=== PATIENT | female | born 1940 | race Caucasian/White ===

== ENCOUNTER 2017-07-28 12:10 | Observation (INO) | payer MEDICARE ==
[2017-07-28] MEDS ORDERED: ASPIRIN 81 MG PO STA (13:32)
[2017-07-28] MEDS ORDERED: NITROGLYCERIN OINT 1 INCH/GM PACKET TOPICAL STA (13:32)
[2017-07-28 13:35] LABS: Basophils % (A) 0 %; CH 29.5; CHCM 32.6; Eosinophils # (A) 0.3 k/uL (0-0.7); Eosinophils % (A) 4 %; HCT 42.2 % (34.0-46.0); HDW 2.41; HGB 13.3 gm/dL (11.4-16.0); Luc # (Auto) 0.16; Luc % (Auto) 2; Lymphocytes # (A) 1.1 k/uL (1.0-4.8); Lymphocytes % (A) 11 %; MCH 28.8 pg (25.0-35.0); MCHC 31.6 g/dL (31.0-37.0); MCV 91.1 fL (80.0-100.0); Mean Platelet Volume 7.7; Monocytes # (A) 0.4 k/uL (0-1.0); Monocytes % (A) 5 %; Neutrophils # (A) 7.4 k/uL (1.3-7.7); Neutrophils % (A) 79 %; RBC 4.63 m/uL (3.80-5.40); RDW 14.2 % (11.5-15.5); WBC 9.4 k/uL (3.8-10.6); WBC (Perox) 9.48
--- NOTE | 2017-07-28 13:36 | ED ---
General Adult HPI - General Chief complaint: Chest Pain Stated complaint: Heart Time Seen by Provider: 07/28/17 12:20 Source: patient, family, RN notes reviewed Mode of arrival: wheelchair Limitations: no limitations - History of Present Illness Initial comments: This is a 77-year-old female presents emergency room complaining of intermittent chest pain over the last 3 days home. Patient states she takes nitroglycerin the pain goes away. Patient states she has baseline angina but this is much more frequent and she is having pain down her left arm as well. Patient also is complaining over the last 3 days she has some significant generalized weakness. Patient states it was difficult for her to take a shower by herself. She had have her [id number] help her. Patient denies any recent fever chills or cough. Patient denies any lightheadedness or dizziness. Patient denies any numbness or weakness. Patient denies any shortness of breath or difficulty breathing. Patient denies any diaphoresis. Patient denies any abdominal pain patient denies vomiting but she has been nauseated. Patient denies any leg swelling or calf tenderness. - Related Data Home Medications Medication Instructions Recorded Confirmed Cyclobenzaprine [Flexeril] 10 mg PO TID PRN 05/31/15 07/28/17 Gabapentin [Neurontin] 300 mg PO BID 05/31/15 07/28/17 Isosorbide Mononitrate [Isosorbide 30 mg PO QAM 05/31/15 07/28/17 Mononitrate ER] metFORMIN HCL 1,000 mg PO BID 05/31/15 07/28/17 Famotidine [Pepcid] 20 mg PO HS 09/06/16 07/28/17 Insulin NPH/Reg Insulin 70/30 10 unit SQ BID 09/06/16 07/28/17 [humuLIN 70/30 VIAL] Meclizine [Antivert] 12.5 mg PO Q6H PRN 09/06/16 07/28/17 Aspirin 81 mg PO DAILY 07/28/17 07/28/17 L.acidoph,Paracasei, B.lactis 1 cap PO DAILY 07/28/17 07/28/17 [Probiotic] Magnesium 200 mg PO DAILY 07/28/17 07/28/17 Metoprolol Tartrate [Lopressor] 12.5 mg PO BID 07/28/17 07/28/17 Nitroglycerin Sl Tabs [Nitrostat] 0.4 mg PO Q5M PRN 07/28/17 07/28/17 [place]-3 Fatty Acids/Fish Oil [Fish 1 cap PO DAILY 07/28/17 07/28/17 Oil 1,000 mg Softgel] Allergies Allergy/AdvReac Type Severity Reaction Status Date / Time iodine Allergy Wheezing Verified 07/28/17 13:54 amoxicillin trihydrate AdvReac Nausea & Verified 07/28/17 13:54 [From Augmentin] Vomiting potassium clavulanate AdvReac Nausea & Verified 07/28/17 13:54 [From Augmentin] Vomiting Review of Systems ROS Statement: Those systems with pertinent positive or pertinent negative responses have been documented in the HPI. ROS Other: All systems not noted in ROS Statement are negative. Past Medical History Past Medical History: Coronary Artery Disease (CAD), Chest Pain / Angina, Diabetes Mellitus, Eye Disorder, GERD/Reflux, Hyperlipidemia, Hypertension, Neurologic Disorder, Syncope Additional Past Medical History / Comment(s): LEGALLY BLIND, CARDIAC ARREST, NUMBNESS TO FINGERS History of Any Multi-Drug Resistant Organisms: None Reported Past Surgical History: Appendectomy, Cholecystectomy, Heart Catheterization, Hernia Repair Additional Past Surgical History / Comment(s): SKIN CA REMOVED, MULTIPLE EYE SURGERIES, LOOP RECORDER Past Psychological History: Depression Smoking Status: Never smoker Past Alcohol Use History: None Reported Past Drug Use History: None Reported - Past Family History Sister(s) Family Medical History: Hypertension, Myocardial Infarction ([place]) Additional Family Medical History / Comment(s): COLON CA General Exam - General Exam Comments Initial Comments: GENERAL: Patient is well-developed and well-nourished. Patient is nontoxic and well- hydrated and is in mild distress. ENT: Neck is soft and supple. No significant lymphadenopathy is noted. Oropharynx is clear. Moist mucous membranes. Neck has full range of motion without eliciting any pain. PULMONARY: Unlabored respirations. Good breath sounds bilaterally. No audible rales rhonchi or wheezing was noted. CARDIOVASCULAR: There is a regular rate and rhythm without any murmurs gallops or rubs. ABDOMEN: Soft and nontender with normal bowel sounds. No palpable organomegaly was noted. There is no palpable pulsatile mass. SKIN: Skin is clear with no lesions or rashes and otherwise unremarkable. NEUROLOGIC: Patient is alert and oriented x3. Cranial nerves II through XII are grossly intact. Motor and sensory are also intact. Normal speech, volume and content. Symmetrical smile. MUSCULOSKELETAL: Normal extremities with adequate strength and full range of motion. No lower extremity swelling or edema. No calf tenderness. LYMPHATICS: No significant lymphadenopathy is noted PSYCHIATRIC: Normal psychiatric evaluation. Normal interpersonal interactions appears functionally intact in deals appropriately with others. No signs of depression. No signs of anxiety. Limitations: no limitations Course Vital Signs 07/28/17 07/28/17 07/28/17 12:11 13:11 14:11 Temperature 99.1 F Pulse Rate 83 90 91 Respiratory 20 18 18 Rate Blood Pressure 197/88 169/78 149/69 O2 Sat by Pulse 99 97 99 Oximetry Medical Decision Making - Medical Decision Making EKG shows atrial fibrillation at 95 bpm QRS is 90 QT interval 352 QTC is 442. Patient has no ST segment elevation or depression. Chest x-ray is normal. Patient has been chest pain-free throughout her duration emergency department. I started the patient heparin emergency department patient went to the floor heparin was continued as was nitroglycerin and aspirin. I consult cardiology. I spoke with Dr. Cruz admitted the patient wrote admitting orders. - Lab Data Result diagrams: 07/28/17 13:05 07/28/17 13:05 Lab Results 07/28/17 07/28/17 07/28/17 Range/Units 13:05 13:05 13:05 WBC 9.4 (3.8-10.6) k/uL RBC 4.63 (3.80-5.40) m/uL Hgb 13.3 (11.4-16.0) gm/dL Hct 42.2 (34.0-46.0) % MCV 91.1 (80.0-100.0) fL MCH 28.8 (25.0-35.0) pg MCHC 31.6 (31.0-37.0) g/dL RDW 14.2 (11.5-15.5) % Plt Count 217 (150-450) k/uL Neutrophils % 79 % Lymphocytes % 11 % Monocytes % 5 % Eosinophils % 4 % Basophils % 0 % Neutrophils # 7.4 (1.3-7.7) k/uL Lymphocytes # 1.1 (1.0-4.8) k/uL Monocytes # 0.4 (0-1.0) k/uL Eosinophils # 0.3 (0-0.7) k/uL Basophils # 0.0 (0-0.2) k/uL PT (9.0-12.0) sec INR (<1.2) APTT (22.0-30.0) sec Sodium 138 (137-145) mmol/L Potassium 5.8 H (3.5-5.1) mmol/L Chloride 102 (98-107) mmol/L Carbon Dioxide 29 (22-30) mmol/L Anion Gap 7 mmol/L BUN 22 H (7-17) mg/dL Creatinine 0.84 (0.52-1.04) mg/dL Est GFR (MDRD) Af Amer >60 (>60 ml/min/1.73 sqM) Est GFR (MDRD) Non-Af >60 (>60 ml/min/1.73 sqM) Glucose 243 H (74-99) mg/dL Calcium 9.1 (8.4-10.2) mg/dL Magnesium 1.7 (1.6-2.3) mg/dL Total Bilirubin 0.6 (0.2-1.3) mg/dL AST 16 (14-36) U/L ALT 21 (9-52) U/L Alkaline Phosphatase 84 (38-126) U/L Total Creatine Kinase 22 L (30-135) U/L CK-MB (CK-2) 0.3 (0.0-2.4) ng/mL CK-MB (CK-2) Rel Index 1.4 Troponin I <0.012 (0.000-0.034) ng/mL Total Protein 7.0 (6.3-8.2) g/dL Albumin 3.9 (3.5-5.0) g/dL Urine Color Urine Appearance (Clear) Urine pH (5.0-8.0) Ur Specific [place] (1.001-1.035) Urine Protein (Negative) Urine Glucose (UA) (Negative) Urine Ketones (Negative) Urine Blood (Negative) Urine Nitrite (Negative) Urine Bilirubin (Negative) Urine Urobilinogen (<2.0) mg/dL Ur Leukocyte Esterase (Negative) Urine RBC (0-5) /hpf Urine WBC (0-5) /hpf Ur Squamous Epith Cells (0-4) /hpf Urine Bacteria (None) /hpf Urine Mucus (None) /hpf 07/28/17 07/28/17 Range/Units 13:05 13:05 WBC (3.8-10.6) k/uL RBC (3.80-5.40) m/uL Hgb (11.4-16.0) gm/dL Hct (34.0-46.0) % MCV (80.0-100.0) fL MCH (25.0-35.0) pg MCHC (31.0-37.0) g/dL RDW (11.5-15.5) % Plt Count (150-450) k/uL Neutrophils % % Lymphocytes % % Monocytes % % Eosinophils % % Basophils % % Neutrophils # (1.3-7.7) k/uL Lymphocytes # (1.0-4.8) k/uL Monocytes # (0-1.0) k/uL Eosinophils # (0-0.7) k/uL Basophils # (0-0.2) k/uL PT 10.4 (9.0-12.0) sec INR 1.0 (<1.2) APTT 25.1 (22.0-30.0) sec Sodium (137-145) mmol/L Potassium (3.5-5.1) mmol/L Chloride (98-107) mmol/L Carbon Dioxide (22-30) mmol/L Anion Gap mmol/L BUN (7-17) mg/dL Creatinine (0.52-1.04) mg/dL Est GFR (MDRD) Af Amer (>60 ml/min/1.73 sqM) Est GFR (MDRD) Non-Af (>60 ml/min/1.73 sqM) Glucose (74-99) mg/dL Calcium (8.4-10.2) mg/dL Magnesium (1.6-2.3) mg/dL Total Bilirubin (0.2-1.3) mg/dL AST (14-36) U/L ALT (9-52) U/L Alkaline Phosphatase (38-126) U/L Total Creatine Kinase (30-135) U/L CK-MB (CK-2) (0.0-2.4) ng/mL CK-MB (CK-2) Rel Index Troponin I (0.000-0.034) ng/mL Total Protein (6.3-8.2) g/dL Albumin (3.5-5.0) g/dL Urine Color Light Yellow Urine Appearance Cloudy H (Clear) Urine pH 5.0 (5.0-8.0) Ur Specific [place] 1.008 (1.001-1.035) Urine Protein Negative (Negative) Urine Glucose (UA) Negative (Negative) Urine Ketones Negative (Negative) Urine Blood Trace H (Negative) Urine Nitrite Negative (Negative) Urine Bilirubin Negative (Negative) Urine Urobilinogen <2.0 (<2.0) mg/dL Ur Leukocyte Esterase Large H (Negative) Urine RBC 1 (0-5) /hpf Urine WBC 32 H (0-5) /hpf Ur Squamous Epith Cells 3 (0-4) /hpf Urine Bacteria Rare H (None) /hpf Urine Mucus Rare H (None) /hpf Critical Care Time Critical Care Time: Yes Total Critical Care Time: 35 Disposition Clinical Impression: Unstable angina pectoris Disposition: ADMITTED IP TO THIS HOSP Referrals: Ruthie Jacob MD [Primary Care Provider] - 1-2 days Time of Disposition: 15:16
[2017-07-28 13:46] LABS: Partial Thromboplastin Time 25.1 sec (22.0-30.0); Prothrombin Time 10.4 sec (9.0-12.0)
[2017-07-28 13:58] LABS: ALT 21 U/L (9-52); AST 16 U/L (14-36); Alkaline Phosphatase 84 U/L (38-126); Anion Gap 7 mmol/L; Blood Urea Nitrogen 22 mg/dL (7-17); Calcium 9.1 mg/dL (8.4-10.2); Carbon Dioxide 29 mmol/L (22-30); Chloride 102 mmol/L (98-107); Glucose 243 mg/dL (74-99); Magnesium 1.7 mg/dL (1.6-2.3); Non-African American GFR(MDRD) >60 (>60 ml/min/1.73 sqM); Sodium 138 mmol/L (137-145); Total Bilirubin 0.6 mg/dL (0.2-1.3)
[2017-07-28 14:01] LABS: Creatine Kinase 22 U/L (30-135)
[2017-07-28 14:06] LABS: Potassium 5.8 mmol/L (3.5-5.1)
--- NOTE | 2017-07-28 14:08 | XR ---
EXAMINATION TYPE: XR chest 2V DATE OF EXAM: 07/28/2017 HISTORY: Chest Pain. REFERENCE: Previous study dated 04/18/2013. FINDINGS: Heart is mildly prominent. The lungs are clear. Pleural spaces are clear. IMPRESSION: MILD CARDIOMEGALY.
[2017-07-28 14:14] LABS: Creatine Kinase MB 0.3 ng/mL (0.0-2.4); Troponin I <0.012 ng/mL (0.000-0.034)
[2017-07-28 14:18] LABS: Appearance,Urine Cloudy (Clear); Bacteria,Urine Rare /hpf; Bilirubin,Urine Negative (Negative); Glucose,Urine (UA) Negative (Negative); Ketones,Urine Negative (Negative); Leukocyte Esterase,Urine Large (Negative); Mucus,Urine Rare /hpf; Nitrite,Urine Negative (Negative); Particle Count 4100; Protein,Urine Negative (Negative); RBC,Urine 1 /hpf (0-5); Specific Gravity,Urine 1.008 (1.001-1.035); Squamous Epithelial Cell,Urine 3 /hpf (0-4); UA Billing (MACRO vs. MICRO) MICRO; Urobilinogen,Urine <2.0 mg/dL (<2.0); WBC,Urine 32 /hpf (0-5)
[2017-07-28] MEDS ORDERED: NITROGLYCERIN SL TABS 0.4 MG TAB SUBLINGUAL PRN ×2 (15:16→18:32)
[2017-07-28] MEDS ORDERED: HEPARIN SODIUM,PORCINE 5,000 UNIT/ML 1 ML VIAL IV ONE (15:18)
[2017-07-28] MEDS ORDERED: HEPARIN SODIUM,PORCINE/D5W PMX 25,000 UNIT in DEXTROSE/WATER 1 500ML.BAG IV SCH (15:30)
[2017-07-28 17:18] LABS: Glucose,Whole Blood 198 mg/dL (75-99)
[2017-07-28] MEDS ORDERED: CYCLOBENZAPRINE 10 MG TAB PO PRN (18:32)
[2017-07-28] MEDS ORDERED: MECLIZINE 12.5 MG TAB PO PRN (18:32)
[2017-07-28] MEDS: NITROGLYCERIN OINT 1 INCH/GM PACKET TOPICAL SCH (20:25)
[2017-07-28 20:46] LABS: Creatine Kinase 22 U/L (30-135)
[2017-07-28] MEDS: INSULIN NPH/REG INSULIN 70/30 300 UNIT/3 ML VIAL SQ SCH (20:58)
[2017-07-28 20:59] LABS: Creatine Kinase MB 0.3 ng/mL (0.0-2.4); Troponin I <0.012 ng/mL (0.000-0.034)
[2017-07-28] MEDS: GABAPENTIN 300 MG CAP PO SCH (20:59)
[2017-07-28] MEDS: METOPROLOL TARTRATE 12.5 MG TAB PO SCH (20:59)
[2017-07-28 21:00] LABS: Glucose,Whole Blood 269 mg/dL (75-99)
[2017-07-28] MEDS ORDERED: FAMOTIDINE 20 MG TAB PO SCH (21:00)
[2017-07-29] MEDS: NITROGLYCERIN OINT 1 INCH/GM PACKET TOPICAL SCH ×2 (00:12→05:49)
[2017-07-29 01:34] LABS: Glucose,Whole Blood 221 mg/dL (75-99)
[2017-07-29 01:43] LABS: Creatine Kinase 21 U/L (30-135)
[2017-07-29 01:57] LABS: Creatine Kinase MB 0.3 ng/mL (0.0-2.4); Troponin I <0.012 ng/mL (0.000-0.034)
[2017-07-29 06:54] LABS: Glucose,Whole Blood 177 mg/dL (75-99)
[2017-07-29 08:12] VITALS: RESP 18
[2017-07-29] MEDS ORDERED: AMINOPHYLLINE 500 MG/20 ML VIAL IV PRN (08:50)
[2017-07-29] MEDS ORDERED: REGADENOSON 0.4 MG/5 ML SYRINGE IV ONE (08:50)
[2017-07-29] MEDS ORDERED: ISOSORBIDE MONONITRATE ER 30 MG TAB.ER.24H PO SCH (09:00)
[2017-07-29] MEDS ORDERED: ASPIRIN 325 MG TAB PO SCH (09:00)
[2017-07-29] MEDS ORDERED: ASPIRIN 81 MG PO SCH (09:00)
[2017-07-29 09:30] LABS: Anion Gap 7 mmol/L; Blood Urea Nitrogen 19 mg/dL (7-17); Calcium 8.5 mg/dL (8.4-10.2); Carbon Dioxide 30 mmol/L (22-30); Chloride 104 mmol/L (98-107); Cholesterol 160 mg/dL (<200); Glucose 192 mg/dL (74-99); HDL Cholesterol 66 mg/dL (40-60); Non-African American GFR(MDRD) >60 (>60 ml/min/1.73 sqM); Potassium 4.3 mmol/L (3.5-5.1); Sodium 141 mmol/L (137-145)
--- NOTE | 2017-07-29 10:25 | P.CRDCN ---
History of Present Illness Consult date: 07/29/17 History of present illness: This is a 77-year-old female. Past medical history significant for hypertension, diabetes, atrial fibrillation not on chronic anticoagulation due to an increased risk of falls, systolic heart failure, GERD and unstable angina. Patient presents with complaints of midsternal chest pain radiating to bilateral arms and neck associated with increased weakness, fatigue and shortness of breath, as well as unsteady gait. The pain and shortness of breath has been intermittent for the past 3 days. She has been taking SL nitroglycerin and getting relief for extended periods of time but is kept returning. She follows as an oupatient with Dr. Alegria. She last saw him in August 2016, at that time he recommended she undergo further testing with stress test and echocardiogram. She states she has been under extreme stress over the previous year and a half due to losing multiple family members and was unable to follow up as advised. She lives at home with her son who is also has many comorbid conditions. She is legally blind and [place]. She also complains of sinus congestion and intermittent headaches recently. Dr. Alegria recommended that the patient take ASA 325 mg daily in lieu of long term care social worker anticoagulation. The pt states she was unaware of the change and has been taking 81 mg daily. EKG done shows atrial fibrillation with a controlled ventricular response with no T-wave abnormality. When compared with old EKG this appears consistent. CBC was within normal limits, coagulation profile at baseline. Potassium 5.8 yesterday, repeat this morning with no treatment is 4.3. Troponin are normal x3. Chest x-ray showed mild cardiomegaly. Most recent echo dated May 2015 indicates trace pulmonic regurgitation, mildly dilated inferior vena cava, mild concentric left ventricular hypertrophy, systolic function is impaired with an ejection fraction of 45-50%, left atrium moderately dilated, aortic valve mildly thickened, mitral valve calcification present, trace mitral regurgitation and trace tricuspid regurgitation present. Review of Systems REVIEW OF SYSTEMS: Patient denies any chest discomfort. No shortness of breath. No diaphoresis. Denies headache, dizziness, blurred vision, double vision. No dyspnea on exertion. Patient denies any stomach discomfort. No nausea, vomiting. No hematochezia. No hematemesis. Denies any black stools or blood in his stools. No syncope. No palpitations. No cough. No recent fever or chills. No muscle weakness or numbness. Past Medical History Past Medical History: Atrial Fibrillation, Coronary Artery Disease (CAD), Chest Pain / Angina, Heart Failure, Diabetes Mellitus, Eye Disorder, GERD/Reflux, Hypertension, Neurologic Disorder, Osteoarthritis (OA), Syncope Additional Past Medical History / Comment(s): C/O "LT EYE ITCHING AND PUFFINESS "DIABETIC RETINOPATHY- HAD MULTIPLE LASER SX BUT ISLEGALLY BLIND, PASTCARDIAC ARREST-SON STATED PT HAD 2 HEART ATTACKS", NUMBNESS TO FINGERS , PAST FALL D/T SYNCOPE-BROKE LT ANKLE-WORE A BOOT. ANKLE SWELLING. "VERY SENSATIVE TO BP MEDS" , SEVERAL ABD HERNIAS, MULTIPLE UTI'S,HERNIATED DISC, PAST BROKEN ANKLE(LT), NUMBNESS LOWER FINGERS. PT HAS AN IDENTICAL TWIN SISTER THAT ALSO IS BLIND D/T RETINOPATHY History of Any Multi-Drug Resistant Organisms: None Reported Past Surgical History: Appendectomy, Cholecystectomy, Heart Catheterization, Hernia Repair Additional Past Surgical History / Comment(s): MULTIPLE EYE SURGERIES, LOOP RECORDER , COLONOSCOPY Past Anesthesia/Blood Transfusion Reactions: No Reported Reaction Smoking Status: Never smoker - Past Family History Mother Family Medical History: No Reported History Additional Family Medical History / Comment(s): FROM COMPLICATIONS OF A SURGURY WHEN PT WAS 4 YEARS OLD. Father Family Medical History: Dementia Additional Family Medical History / Comment(s): AT AGE 88 FROM [place] Sister(s) Family Medical History: Hypertension, Myocardial Infarction ([place]) Additional Family Medical History / Comment(s): COLON CA Medications and Allergies Home Medications Medication Instructions Recorded Confirmed Type Cyclobenzaprine [Flexeril] 10 mg PO TID PRN 05/31/15 07/28/17 History Gabapentin [Neurontin] 300 mg PO BID 05/31/15 07/28/17 History Isosorbide Mononitrate [Isosorbide 30 mg PO QAM 05/31/15 07/28/17 History Mononitrate ER] metFORMIN HCL 1,000 mg PO BID 05/31/15 07/28/17 History Famotidine [Pepcid] 20 mg PO HS 09/06/16 07/28/17 History Insulin NPH/Reg Insulin 70/30 10 unit SQ BID 09/06/16 07/28/17 History [humuLIN 70/30 VIAL] Meclizine [Antivert] 12.5 mg PO Q6H PRN 09/06/16 07/28/17 History L.acidoph,Paracasei, B.lactis 1 cap PO DAILY 07/28/17 07/28/17 History [Probiotic] Magnesium 200 mg PO DAILY 07/28/17 07/28/17 History Metoprolol Tartrate [Lopressor] 12.5 mg PO BID 07/28/17 07/28/17 History Nitroglycerin Sl Tabs [Nitrostat] 0.4 mg PO Q5M PRN 07/28/17 07/28/17 History [place]-3 Fatty Acids/Fish Oil [Fish 1 cap PO DAILY 07/28/17 07/28/17 History Oil 1,000 mg Softgel] Allergies Allergy/AdvReac Type Severity Reaction Status Date / Time iodine Allergy Wheezing Verified 07/28/17 13:54 amoxicillin trihydrate AdvReac Nausea & Verified 07/28/17 13:54 [From Augmentin] Vomiting potassium clavulanate AdvReac Nausea & Verified 07/28/17 13:54 [From Augmentin] Vomiting Physical Exam Vitals: Vital Signs Temp Pulse Pulse Resp BP BP Pulse Ox 07/29/17 08:00 97.9 F 82 18 156/78 98 07/29/17 04:00 81 16 07/29/17 03:56 98.2 F 94 16 120/58 97 07/29/17 00:00 97.7 F 65 16 131/68 95 07/28/17 21:27 95 07/28/17 21:26 95 07/28/17 20:00 83 16 07/28/17 19:42 97.8 F 72 16 150/79 98 07/28/17 16:28 98.6 F 84 16 184/85 97 07/28/17 15:39 98.1 F 90 18 150/72 97 07/28/17 14:11 91 18 149/69 99 07/28/17 13:11 90 18 169/78 97 07/28/17 12:11 99.1 F 83 20 197/88 99 Intake and Output 07/28/17 07/29/17 07/29/17 22:59 06:59 14:59 Intake Total 360 198.667 Balance 360 198.667 Intake: Intake, IV Titration 198.667 Amount Heparin Sodium,Porcine/ 198.667 D5w Pmx 25,000 unit In Dextrose/Water 1 500ml. bag @ 8.749 UNITS/KG/HR 20 mls/hr IV .Q24H [facility] Rx #:[id number] Oral 360 Other: Voiding Method Toilet Toilet Weight 115.8 kg GENERAL: This is a 77-year-old female in no apparent distress at the time of my examination. Morbidly obese. HEENT: Head is atraumatic, normocephalic. Pupils are equal, round. Sclerae anicteric. Conjunctivae are clear. Mucous membranes of the mouth are moist. Neck is supple. There is no jugular venous distention. No carotid bruit is heard. LUNGS: Clear to auscultation no wheezes, rales or rhonchi. No chest wall tenderness is noted on palpation or with deep breathing. HEART: Regular rate and rhythm without murmurs, rubs or gallops. S1 and S2 heard. ABDOMEN: Soft, nontender. Bowel sounds are heard. No organomegaly noted. EXTREMITIES: 2+ peripheral pulses with evidence of nonpitting bilateral lower extremity peripheral edema and no calf tenderness noted. NEUROLOGIC: Patient is awake, alert and oriented x3. Results 07/28/17 13:05 07/29/17 07:57 Cardiac Enzymes 07/28/17 07/28/17 07/28/17 Range/Units 13:05 13:05 20:02 AST 16 (14-36) U/L CK-MB (CK-2) 0.3 0.3 (0.0-2.4) ng/mL Troponin I <0.012 <0.012 (0.000-0.034) ng/mL 07/29/17 Range/Units 00:58 AST (14-36) U/L CK-MB (CK-2) 0.3 (0.0-2.4) ng/mL Troponin I <0.012 (0.000-0.034) ng/mL Coagulation 07/28/17 07/29/17 Range/Units 13:05 00:58 PT 10.4 (9.0-12.0) sec APTT 25.1 38.3 H (22.0-30.0) sec CBC 07/28/17 Range/Units 13:05 WBC 9.4 (3.8-10.6) k/uL RBC 4.63 (3.80-5.40) m/uL Hgb 13.3 (11.4-16.0) gm/dL Hct 42.2 (34.0-46.0) % Plt Count 217 (150-450) k/uL Comprehensive Metabolic Panel 07/28/17 Range/Units 13:05 Sodium 138 (137-145) mmol/L Potassium 5.8 H (3.5-5.1) mmol/L Chloride 102 (98-107) mmol/L Carbon Dioxide 29 (22-30) mmol/L BUN 22 H (7-17) mg/dL Creatinine 0.84 (0.52-1.04) mg/dL Glucose 243 H (74-99) mg/dL Calcium 9.1 (8.4-10.2) mg/dL AST 16 (14-36) U/L ALT 21 (9-52) U/L Alkaline Phosphatase 84 (38-126) U/L Total Protein 7.0 (6.3-8.2) g/dL Albumin 3.9 (3.5-5.0) g/dL Current Medications Generic Name Dose Route Start Last Admin Trade Name Freq PRN Reason Stop Dose Admin Aspirin 325 mg 07/29/17 09:00 Aspirin PO DAILY [facility] Cyclobenzaprine HCl 10 mg 07/28/17 18:32 Flexeril PO TID PRN Spasms Famotidine 20 mg 07/28/17 21:00 07/28/17 20:59 Pepcid PO 20 mg HS [facility]ITA Administration Gabapentin 300 mg 07/28/17 21:00 07/28/17 20:59 Neurontin PO 300 mg BID S[facility]ITA Administration Heparin Sodium/Dextrose 25,000 500 mls @ 20 mls/hr 07/28/17 15:30 07/29/17 01 :44 unit/ IV Solution IV 11.76 units/kg/hr .Q24H [facility] 26.9 mls/hr Protocol Titration 8.749 UNITS/KG/HR Insulin Human Isoph/Insulin Regular 10 unit 07/28/17 18:45 07/28/17 20:58 Humulin 70/30 Vial SQ 10 unit AC-BID SAVITA Administration Isosorbide Mononitrate 30 mg 07/29/17 09:00 Imdur PO QAM S[facility]ITA Meclizine HCl 12.5 mg 07/28/17 18:32 Antivert PO Q6H PRN Vertigo Metoprolol Tartrate 12.5 mg 07/28/17 21:00 07/28/17 20:59 Lopressor PO 12.5 mg BID SAVITA Administration Nitroglycerin 0.4 mg 07/28/17 15:16 Nitrostat SUBLINGUAL Q5M PRN Chest Pain Intake and Output 07/28/17 07/29/17 07/29/17 22:59 06:59 14:59 Intake Total 360 198.667 Balance 360 198.667 Intake: Intake, IV Titration 198.667 Amount Heparin Sodium,Porcine/ 198.667 D5w Pmx 25,000 unit In Dextrose/Water 1 500ml. bag @ 8.749 UNITS/KG/HR 20 mls/hr IV .Q24H [facility] Rx #:[id number] Oral 360 Other: Voiding Method Toilet Toilet Weight 115.8 kg 07/28/17 13:05 07/28/17 13:05 EKG Interpretations (text) EKG indicates atrial fibrillation with a controlled ventricular response. Assessment and Plan Plan: ASSESSMENT 1. Chest pain, atypical 2. Weakness 3. Essential hypertension 4. Diabetes mellitus 5. Coronary artery disease, last cardiac catheterization August 2000 showed 70 % mid LAD lesion PLAN Obtain echocardiogram and Lexiscan. Will recommend she take aspirin 325 mg daily instead of 81.If this testing is unremarkable, from a cardiac standpoint, the patient could be discharged home. She can follow-up with Dr. Alegria in the office in 2 weeks. Nurse Practitioner note has been reviewed, I agree with a documented findings and plan of care. Patient was seen and examined.
--- NOTE | 2017-07-29 11:55 | NM ---
EXAMINATION TYPE: NM stress lexiscan cardiolite DATE OF EXAM: 07/29/2017 COMPARISON: 04/28/2013 HISTORY: Chest pain, shortness of breath, palpitations, history of hypertension/diabetes/hyperlipidem ia and previous history of cardiac catheterization and myocardial infarct TECHNIQUE: After the intravenous administration of 11.2 mCi Tc 99m Sestamibi - Cardiolite resting SP ECT images acquired 50 minutes post injection. The patient received 0.4mg Lexiscan, 29.7 mCi Tc 99m Sestamibi - Stress images obtained [address] injection FINDINGS: Review of stress and rest SPECT images demonstrates no distinct perfusion abnormality. Gated analysi s shows normal wall motion with an estimated left ventricular ejection fraction of 46 %. TID of 0.97 is within normal limits. IMPRESSION: 1. No scintigraphic evidence for reversible ischemia. 2. Abnormal estimated ejection fraction of 46%, this is decreased from the previous exam where it benny sured 70%
[2017-07-29 12:05] VITALS: TEMP 97.6
[2017-07-29] MEDS: METOPROLOL TARTRATE 12.5 MG TAB PO SCH (12:55)
[2017-07-29] MEDS: GABAPENTIN 300 MG CAP PO SCH (12:56)
[2017-07-29] MEDS: INSULIN NPH/REG INSULIN 70/30 300 UNIT/3 ML VIAL SQ SCH (12:59)
[2017-07-29 14:07] LABS: Glucose,Whole Blood 169 mg/dL (75-99)
[2017-07-29 15:49] VITALS: BP 133/70; PULSE 75
[2017-07-29 16:00] LABS: Glucose,Whole Blood 282 mg/dL (75-99)
--- NOTE | 2017-07-29 19:04 | ECHOF ---
Referral Reason:chest pain MEASUREMENTS -------- HEIGHT: 162.6 cm WEIGHT: 115.7 kg BP: IVSd: 1.4 cm (0.6 - 1.1) LVIDd: 2.5 cm (3.9 - 5.3) LVPWd: 1.6 cm (0.6 - 1.1) IVSs: 1.6 cm LVIDs: 1.9 cm LVPWs: 1.5 cm LAESV Index (A-L): 23.21 ml/m Ao Diam: 2.8 cm (2.0 - 3.7) AV Cusp: 1.7 cm (1.5 - 2.6) LA Diam: 3.9 cm (2.7 - 3.8) MV EXCURSION: 7.289 mm (> 18.000) MV EF SLOPE: 78 mm/s (70 - 150) EPSS: 1.4 cm MV E Jerson: 0.83 m/s MV DecT: 188 ms MV A Jerson: 0.28 m/s MV E/A Ratio: 2.99 RAP: 5.00 mmHg RVSP: 8.33 mmHg FINDINGS -------- Atrial fibrillation. This was a technically good study. There is moderate concentric left ventricular hypertrophy. Overall left ventricular systolic function is normal with, an EF between 55 - 60 %. The right ventricle is normal in size and function. The left atrium is normal in size. The right atrium is normal in size. Aortic valve is trileaflet and is mildly thickened. The mitral valve leaflets are mildly thickened. Mild mitral regurgitation is present. Mild tricuspid regurgitation present. The right ventricular systolic pressure, as measured by Doppler, is 8.33mmHg. Pulmonic valve appears structurally normal. The aortic root size is normal. The pericardium is normal. CONCLUSIONS -------- 1. Atrial fibrillation. 2. Mild mitral regurgitation is present. 3. Mild tricuspid regurgitation present. 4. The right ventricular systolic pressure, as measured by Doppler, is 8.33mmHg. 5. Pulmonic valve appears structurally normal. 6. The aortic root size is normal. 7. The pericardium is normal. 8. This was a technically good study. 9. There is moderate concentric left ventricular hypertrophy. 10. Overall left ventricular systolic function is normal with, an EF between 55 - 60 %. 11. The right ventricle is normal in size and function. 12. The left atrium is normal in size. 13. The right atrium is normal in size. 14. Aortic valve is trileaflet and is mildly thickened. 15. The mitral valve leaflets are mildly thickened. HEALTH ASSOCIATE: Carmelita Smith RDCS
--- NOTE | 2017-07-30 07:21 | EST ---
EXERCISE STRESS Date of Service: AGE:: 77 SEX:: Female HT:: 64 WT:: 255 PROTOCOL:: Lexiscan Cardiolite STAGE:: @@ DURATION OF EXERCISE:: @@ HEART RATE REST:: 99 BLOOD PRESSURE REST:: 162/91 MAXIMUM HEART RATE ACHIEVED:: 105 MAXIMUM BLOOD PRESSURE:: 159/92 85% MPHR:: @@ 100% MPHR:: @@ METS:: @@ INDICATIONS:: Chest pain. CLINICAL INFORMATION:: Ms. Aguilar is a 77-year-old female with history of hypertension and diabetes being evaluated for symptoms of chest pain. Baseline EKG showed sinus rhythm with normal NM interval and QRS duration with occasional PVCs. A standard dose of Lexiscan was infused. EKGs taken during and after the infusion did not reveal any changes to suggest ischemia. FINAL IMPRESSION: 1. Negative Lexiscan stress test. 2. Occasional PVCs. 3. Report on the nuclear images to be given by the radiologist. [id number] / SUSIEN: [id number] /
--- NOTE | 2017-07-30 12:01 | P.HPIM ---
History of Present Illness H&P Date: 07/29/17 Chief Complaint: chest pressure Date of Service 07/29/17 H & P Dictated for Dr. Cruz. This is a 77-year-old female presents emergency room complaining of intermittent chest pressure over the last 3 days at rest in a patient with history of angina. Chest pressure relieved by nitroglycerin. Reports midsternal chest pressure, sometimes radiating to left chest, down left arm with accompanying increased generalized weakness, required assistance with ADLs. Patient denies any recent fever chills or cough. Patient denies any focal deficits, lightheadedness or dizziness. Patient denies any numbness or weakness. Patient denies any shortness of breath or difficulty breathing. Patient denies any diaphoresis. Patient denies any abdominal pain. Complains of occasional nausea, no emesis.EKG reported, CVR, atrial fibrillation without ST segment elevation or depression. CXR non acute, mild cardiomegaly.Heparin drip, NTG and ASA initiated. Echo reported normal LV function, EF 55-60%, moderated concentric left ventricular hypertrophy.Troponins negative X 2. Evaluated by cardiology, Lexiscan Stress test ordered.PT/OT consulted. Review of Systems Review of systems: HEENT: Denies headache or focal deficits. Denies any dizziness or lightheadedness. Denies any syncopal episodes, Respiratory: Denies any increased shortness of breath. Denies cough Cardiac: Denies any chest pain, palpitations. Denies any diaphoresis GI: Complains of nausea, no vomiting, or diarrhea. Denies any abdominal tenderness. Denies any melena, hematemesis, hematochezia. : Denies any dysuria. Psychiatry: Denies any anxiety or depression. AND Please refer to HPI, otherwise all other systems negative. Past Medical History Past Medical History: Atrial Fibrillation, Coronary Artery Disease (CAD), Chest Pain / Angina, Heart Failure, Diabetes Mellitus, Eye Disorder, GERD/Reflux, Hypertension, Neurologic Disorder, Osteoarthritis (OA), Syncope Additional Past Medical History / Comment(s): C/O "LT EYE ITCHING AND PUFFINESS "DIABETIC RETINOPATHY- HAD MULTIPLE LASER SX BUT ISLEGALLY BLIND, PASTCARDIAC ARREST-SON STATED PT HAD 2 HEART ATTACKS", NUMBNESS TO FINGERS , PAST FALL D/T SYNCOPE-BROKE LT ANKLE-WORE A BOOT. ANKLE SWELLING. "VERY SENSATIVE TO BP MEDS" , SEVERAL ABD HERNIAS, MULTIPLE UTI'S,HERNIATED DISC, PAST BROKEN ANKLE(LT), NUMBNESS LOWER FINGERS. PT HAS AN IDENTICAL TWIN SISTER THAT ALSO IS BLIND D/T RETINOPATHY History of Any Multi-Drug Resistant Organisms: None Reported Past Surgical History: Appendectomy, Cholecystectomy, Heart Catheterization, Hernia Repair Additional Past Surgical History / Comment(s): MULTIPLE EYE SURGERIES, LOOP RECORDER , COLONOSCOPY Past Anesthesia/Blood Transfusion Reactions: No Reported Reaction Smoking Status: Never smoker - Past Family History Mother Family Medical History: No Reported History Additional Family Medical History / Comment(s): FROM COMPLICATIONS OF A SURGURY WHEN PT WAS 4 YEARS OLD. Father Family Medical History: Dementia Additional Family Medical History / Comment(s): AT AGE 88 FROM [place] Sister(s) Family Medical History: Hypertension, Myocardial Infarction ([place]) Additional Family Medical History / Comment(s): COLON [place] Medications and Allergies Home Medications Medication Instructions Recorded Confirmed Type Cyclobenzaprine [Flexeril] 10 mg PO TID PRN 05/31/15 07/28/17 History Gabapentin [Neurontin] 300 mg PO BID 05/31/15 07/28/17 History Isosorbide Mononitrate [Isosorbide 30 mg PO QAM 05/31/15 07/28/17 History Mononitrate ER] metFORMIN HCL 1,000 mg PO BID 05/31/15 07/28/17 History Famotidine [Pepcid] 20 mg PO HS 09/06/16 07/28/17 History Insulin NPH/Reg Insulin 70/30 10 unit SQ BID 09/06/16 07/28/17 History [humuLIN 70/30 VIAL] Meclizine [Antivert] 12.5 mg PO Q6H PRN 09/06/16 07/28/17 History L.acidoph,Paracasei, B.lactis 1 cap PO DAILY 07/28/17 07/28/17 History [Probiotic] Magnesium 200 mg PO DAILY 07/28/17 07/28/17 History Metoprolol Tartrate [Lopressor] 12.5 mg PO BID 07/28/17 07/28/17 History Nitroglycerin Sl Tabs [Nitrostat] 0.4 mg PO Q5M PRN 07/28/17 07/28/17 History Thaxton-3 Fatty Acids/Fish Oil [Fish 1 cap PO DAILY 07/28/17 07/28/17 History Oil 1,000 mg Softgel] Allergies Allergy/AdvReac Type Severity Reaction Status Date / Time iodine Allergy Wheezing Verified 07/28/17 13:54 amoxicillin trihydrate AdvReac Nausea & Verified 07/28/17 13:54 [From Augmentin] Vomiting potassium clavulanate AdvReac Nausea & Verified 07/28/17 13:54 [From Augmentin] Vomiting Physical Exam Vitals: Vital Signs Temp Pulse Resp BP Pulse Ox 07/29/17 15:46 97.6 F 75 18 133/70 98 07/29/17 12:00 97.6 F 89 18 151/71 98 07/29/17 08:00 97.9 F 82 18 156/78 98 07/29/17 04:00 81 16 07/29/17 03:56 98.2 F 94 16 120/58 97 07/29/17 00:00 97.7 F 65 16 131/68 95 07/28/17 21:27 95 07/28/17 21:26 95 07/28/17 20:00 83 16 07/28/17 19:42 97.8 F 72 16 150/79 98 Intake and Output 07/29/17 07/29/17 07/29/17 06:59 14:59 22:59 Intake Total 198.667 360 Balance 198.667 360 Intake: Intake, IV Titration 198.667 Amount Heparin Sodium,Porcine/ 198.667 D5w Pmx 25,000 unit In Dextrose/Water 1 500ml. bag @ 8.749 UNITS/KG/HR 20 mls/hr IV .Q24H [facility] Rx #:[id number] Oral 360 Other: Voiding Method Toilet Toilet PHYSICAL EXAM: VITAL SIGNS: [As above] GENERAL: [Sitting up in bed, no acute distress] HEENT: Conjunctivae normal. eyes normal. Oral mucosa moist NECK: No JVD. No thyroid enlargement. No LNs CARDIOVASCULAR: S1, S2 muffled. No murmur RESPIRATION: Breath sounds diminished in the bases. No rhonchi or crackles. No bronchial breathing. ABDOMEN: Soft, nontender . No guarding. no masses palpable. No ascites, No hepatosplenomegaly.Bowel sounds heard. LEGS: No edema. no swelling NERVOUS SYSTEM: Cranial N 2-12 grossly normal. Moves all 4 limbs. Diffuse weakness No focal deficits. No sensory deficit. Skin: no ulcer no rash Joints: No active swelling. No inflammation. Lymphatic system. No LN neck axilla or groin. Results CBC & Chem 7: 07/28/17 13:05 07/29/17 07:57 Labs: Abnormal Lab Results - Last 24 Hours (Table) 07/28/17 07/28/17 07/29/17 Range/Units 20:02 20:56 00:58 APTT (22.0-30.0) sec BUN (7-17) mg/dL Glucose (74-99) mg/dL POC Glucose (mg/dL) 269 H (75-99) mg/dL Total Creatine Kinase 22 L 21 L (30-135) U/L HDL Cholesterol (40-60) mg/dL 07/29/17 07/29/17 07/29/17 Range/Units 00:58 01:28 06:52 APTT 38.3 H (22.0-30.0) sec BUN (7-17) mg/dL Glucose (74-99) mg/dL POC Glucose (mg/dL) 221 H 177 H (75-99) mg/dL Total Creatine Kinase (30-135) U/L HDL Cholesterol (40-60) mg/dL 07/29/17 07/29/17 07/29/17 Range/Units 07:57 07:57 11:54 APTT 58.4 H (22.0-30.0) sec BUN 19 H (7-17) mg/dL Glucose 192 H (74-99) mg/dL POC Glucose (mg/dL) 169 H (75-99) mg/dL Total Creatine Kinase (30-135) U/L HDL Cholesterol 66 H (40-60) mg/dL 07/29/17 Range/Units 15:56 APTT (22.0-30.0) sec BUN (7-17) mg/dL Glucose (74-99) mg/dL POC Glucose (mg/dL) 282 H (75-99) mg/dL Total Creatine Kinase (30-135) U/L HDL Cholesterol (40-60) mg/dL Microbiology - Last 24 Hours (Table) 07/28/17 13:05 Urine Culture - Preliminary Urine,Voided Thrombosis Risk Factor Assmnt - Choose All That Apply Any of the Below Risk Factors Present?: Yes Each Factor Represents 1 point: Obesity (BMI >25), Swollen legs (current) Other Risk Factors: Yes Each Risk Factor Represents 3 Points: Age 75 years or older Other congenital or acquired thrombophilia - If yes, enter type in comment: No Thrombosis Risk Factor Assessment Total Risk Factor Score: 5 Thrombosis Risk Factor Assessment Level: High Risk Assessment and Plan Plan: 1. [ Chest pain, workup in progress]. 2. [ Atrial fibrillation, chronic]. 3. [ Increased generalized weakness]. 4. [ Diabetes mellitus]. 5. [ Essential hypertension]. 6. [ CAD, prior cardiac catheterization 1999 reporting 70% mid LAD lesion. Plan: Continue on current medication regime ,monitoring and symptomatic treatment. Maintain heparin, aspirin and nitroglycerin. As mentioned above Lexiscan stress test ordered and pending. PT OT evaluation]. The impression and plan of care has been dictated as directed as a scribe. : I performed a H&P examination of this patient and discussed the same with the dictator. I agree with the dictator's note. Any additional findings/opinions/ etc. will be noted.
--- NOTE | 2017-07-30 12:14 | P.DS ---
Providers Date of admission: 07/28/17 15:16 Attending physician: Delroy Cruz Consults: 07/28/17 15:16 Consult Physician Urgent Consulting Provider: [facility] Consult Reason/Comments: Unstable angina Do you want consulting provider notified?: Yes Primary care physician: Ruthie Jacob Hospital Course: Final Diagnoses: 1. Chest pain, status post Lexiscan stress test, findings below 2. Chronic atrial fibrillation with controlled ventricular rate 3. Diabetes mellitus 4. Generalized medical debility, endurance deficits 5. Essential hypertension 6. CAD, prior cardiac catheterization 1999 reporting 70% mid LAD lesion. Hospital course: This is a 77-year-old female, legally blind, hard of hearing, admitted with chest pain. Please refer to H&P for specifics. Evaluated by cardiology. Lexiscan stress test reported as negative, no evidence for reversible ischemia, abnormal estimated EF of 46%, decreased from previous exam of 70%. Cardiology recommends patient be discharged home on increased aspirin, 325 mg daily. No further episodes of chest pain /pressure. Cleared for discharge by cardiology. Evaluated by physical therapy, decreased endurance, cleared for discharge home with family. The impression and plan of care has been dictated as directed as a scribe. : I performed a H&P examination of this patient and discussed the same with the dictator. I agree with the dictator's note. Any additional findings/opinions/ etc. will be noted. Patient Condition at Discharge: Stable Plan - Discharge Summary New Discharge Prescriptions: New Aspirin 325 mg PO DAILY tab Discontinued Aspirin 81 mg PO DAILY No Action Cyclobenzaprine [Flexeril] 10 mg PO TID PRN PRN Reason: Spasms Isosorbide Mononitrate [Isosorbide Mononitrate ER] 30 mg PO QAM Gabapentin [Neurontin] 300 mg PO BID metFORMIN HCL 1,000 mg PO BID Meclizine [Antivert] 12.5 mg PO Q6H PRN PRN Reason: Vertigo Famotidine [Pepcid] 20 mg PO HS Insulin NPH/Reg Insulin 70/30 [humuLIN 70/30 VIAL] 10 unit SQ BID Enochs-3 Fatty Acids/Fish Oil [Fish Oil 1,000 mg Softgel] 1 cap PO DAILY Nitroglycerin Sl Tabs [Nitrostat] 0.4 mg PO Q5M PRN PRN Reason: Chest Pain Metoprolol Tartrate [Lopressor] 12.5 mg PO BID Magnesium 200 mg PO DAILY L.acidoph,Paracasei, B.lactis [Probiotic] 1 cap PO DAILY Discharge Medication List Cyclobenzaprine [Flexeril] 10 mg PO TID PRN 05/31/15 [History] Gabapentin [Neurontin] 300 mg PO BID 05/31/15 [History] Isosorbide Mononitrate [Isosorbide Mononitrate ER] 30 mg PO QAM 05/31/15 [ History] metFORMIN HCL 1,000 mg PO BID 05/31/15 [History] Famotidine [Pepcid] 20 mg PO HS 09/06/16 [History] Insulin NPH/Reg Insulin 70/30 [humuLIN 70/30 VIAL] 10 unit SQ BID 09/06/16 [ History] Meclizine [Antivert] 12.5 mg PO Q6H PRN 09/06/16 [History] L.acidoph,Paracasei, B.lactis [Probiotic] 1 cap PO DAILY 07/28/17 [History] Magnesium 200 mg PO DAILY 07/28/17 [History] Metoprolol Tartrate [Lopressor] 12.5 mg PO BID 07/28/17 [History] Nitroglycerin Sl Tabs [Nitrostat] 0.4 mg PO Q5M PRN 07/28/17 [History] Enochs-3 Fatty Acids/Fish Oil [Fish Oil 1,000 mg Softgel] 1 cap PO DAILY [History] Aspirin 325 mg PO DAILY tab 07/29/17 [Rx] Follow up Appointment(s)/Referral(s): Willy Alegria MD [STAFF PHYSICIAN] - 08/14/17 1:45 pm (Appointment made for Aug.14 @ 1:45pm.) Ruthie Jacob MD [Primary Care Provider] - 3 Days Patient Instructions/Handouts: Chest Pain (GEN) Activity/Diet/Wound Care/Special Instructions: CBC, BMP labs in [address] Jacob Discharge Disposition: HOME SELF-CARE
== END 2017-07-29 16:10 | disposition home or self-care (01) ==
LOC: EC 12:10 → 3OBS 15:16
PROVIDERS: ADMIT Internal Medicine; ATTEND Internal Medicine
DX: R07.89 Other chest pain (principal); I48.2 Chronic atrial fibrillation; E11.319 Type 2 diabetes mellitus with unspecified diabetic retinopathy without macular edema; R53.1 Weakness; R06.02 Shortness of breath; R26.81 Unsteadiness on feet; I25.10 Atherosclerotic heart disease of native coronary artery without angina pectoris; I11.0 Hypertensive heart disease with heart failure; I50.20 Unspecified systolic (congestive) heart failure; E66.01 Morbid (severe) obesity due to excess calories; Z68.41 Body mass index [BMI] 40.0-44.9, adult; H54.8 Legal blindness, as defined in USA; H91.90 Unspecified hearing loss, unspecified ear; M19.90 Unspecified osteoarthritis, unspecified site; K21.9 Gastro-esophageal reflux disease without esophagitis; R20.0 Anesthesia of skin; Z79.899 Other long term (current) drug therapy; Z79.84 Long term (current) use of oral hypoglycemic drugs; Z79.4 Long term (current) use of insulin; Z79.82 Long term (current) use of aspirin; Z88.1 Allergy status to other antibiotic agents; Z88.3 Allergy status to other anti-infective agents; Z86.74 Personal history of sudden cardiac arrest; Z85.828 Personal history of other malignant neoplasm of skin; Z82.49 Family history of ischemic heart disease and other diseases of the circulatory system; Z80.0 Family history of malignant neoplasm of digestive organs; Z87.440 Personal history of urinary (tract) infections
CPT/HCPCS: 93005 ×2; 96365; 96366 ×2; 96376; 99291; 36415; 94760; 93017; 93306; 97161; 80061; 80053; 80048; 82550 ×2; 82553 ×2; 83735; 84484 ×2; 85025; 85610; 85730 ×2; 81001; 87086; 71020; 78452; G0378 ×2; A9500; J1644 ×2; J2785

== ENCOUNTER → 2018-03-26 | Outpatient (CLI) | payer MEDICARE ==
--- NOTE | 2018-03-26 13:55 | XR ---
EXAMINATION TYPE: XR knee complete LT DATE OF EXAM: 03/26/2018 CLINICAL HISTORY: Pain after fall injury one month ago. TECHNIQUE: Three views of the left knee are obtained. COMPARISON: None. FINDINGS: There is no acute fracture/dislocation evident in left knee. There is mild tricompartment joint space loss. There is mild spurring patellofemoral compartment. There is tibial condylar spurrin g noted. Posterior vascular calcification is seen. Increased density suprapatellar bursa may reflect small to moderate-sized joint effusion. IMPRESSION: There is no acute fracture or dislocation in the left knee.
--- NOTE | 2018-03-26 13:56 | XR ---
EXAMINATION TYPE: XR ankle complete LT DATE OF EXAM: 03/26/2018 CLINICAL HISTORY: Left ankle pain after fall injury one month ago TECHNIQUE: Frontal, lateral and oblique images of the left ankle are obtained. COMPARISON: None. FINDINGS: Osseous structures are demineralized. There is no acute fracture/dislocation evident in th e left ankle. There are moderate to large size superior and inferior calcaneal spurs. The ankle mort ise appears within normal limits. Moderate diffuse subcutaneous edema is present. There are prominent osteophytes dorsal surface of the anterior talar navicular articulation. IMPRESSION: There is no acute fracture or dislocation in the left ankle.
== END | disposition home or self-care (01) ==
LOC: RADXRYALE 13:31
PROVIDERS: ATTEND Internal Medicine
DX: M79.605 Pain in left leg (principal)

== ENCOUNTER 2019-03-14 21:48 | Emergency (ER) | payer MEDICARE ==
[2019-03-14 21:54] VITALS: RESP 18
[2019-03-14 22:14] LABS: Appearance,Urine Clear (Clear); Bilirubin,Urine Negative (Negative); Blood,Urine Small (Negative); Color,Urine Light Yellow; Glucose,Urine (UA) 3+ (Negative); Hyaline Casts,Urine 1 /lpf (0-2); Ketones,Urine Negative (Negative); Leukocyte Esterase,Urine Negative (Negative); Mucus,Urine Rare /hpf; Nitrite,Urine Negative (Negative); Protein,Urine Negative (Negative); RBC,Urine 1 /hpf (0-5); Specific Gravity,Urine 1.008 (1.001-1.035); Urobilinogen,Urine <2.0 mg/dL (<2.0)
[2019-03-14] MEDS ORDERED: SODIUM CHLORIDE 0.9% 500 ML 500 ML IV STA (22:29)
[2019-03-14] MEDS ORDERED: ACETAMINOPHEN TAB 325 MG TAB PO STA (22:50)
--- NOTE | 2019-03-14 22:57 | XR ---
EXAM: XR Cervical Spine, 4 or 5 Views CLINICAL HISTORY: ITS.REASON XR Reason: pain TECHNIQUE: Frontal, lateral, and oblique views of the cervical spine. COMPARISON: No relevant prior studies available. FINDINGS: Vertebrae: No definite fracture. Normal alignment. Disc spaces: No acute findings. Vertebral endplate spurring/syndesmophyte formation anteriorly at C4-5 and C5-6. Mild multilevel facet arthropathy. Soft tissues: Unremarkable. IMPRESSION: No fracture. Mild degenerative changes.
--- NOTE | 2019-03-14 23:15 | XR ---
EXAM: XR Abdomen, 2 Views CLINICAL HISTORY: ITS.REASON XR Reason: abdominal pain TECHNIQUE: Frontal view of the abdomen/pelvis with upright view of the abdomen. COMPARISON: No relevant prior studies available. FINDINGS: Intraperitoneal space: No free air. Cholecystectomy clips Gastrointestinal tract: Gas densities projecting over the hips could reflect bowel within a pannus. This would not be typical location for herniated bowel. No clear obstruction. Bones/joints: Degeneration of the spine. IMPRESSION: Gas densities projecting over the hips could reflect bowel within a pannus. This would not be typical location for herniated bowel. No clear obstruction or free air.
--- NOTE | 2019-03-14 23:24 | ED ---
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 Patient reports acute on chronic cervical neck pain. Patient didn't have been bothering her for many years, however she reports the pain and right paracervical region has gotten worse for approximately 2 weeks. Patient also has secondary complaint of some epigastric abdominal burning only after eating. Patient denies abdominal pain and rest. Patient denies any chest pain shortness of breath. She denies all other complaints. Systemic: Pt denies fatigue, myalgia, fever/chills, rash. Pt denies weakness, night sweats, weight loss. Neuro: Pt denies headache, visual disturbances, syncope or pre-syncope. HEENT: Pt denies ocular discharge or irritation, otalgia, rhinorrhea, pharyngitis or notable lymphadenopathy. Cardiopulmonary: Pt denies chest pain, SOB, heart palpitations, dyspnea on exertion. Abdominal/GI: Pt denies abdominal pain, n/v/d. : Pt denies dysuria, burning w/ urination, frequency/urgency. Denies new onset urinary or bowel incontinence. MSK: Pt denies myalgia, loss of strength or function in extremities. Neuro: Pt denies new onset weakness, paresthesias. (Bert Gyu) - Related Data Home Medications Medication Instructions Recorded Confirmed Cyclobenzaprine [Flexeril] 10 mg PO TID PRN 05/31/15 07/28/17 Gabapentin [Neurontin] 300 mg PO BID 05/31/15 07/28/17 Isosorbide Mononitrate [Isosorbide 30 mg PO QAM 05/31/15 07/28/17 Mononitrate ER] metFORMIN HCL 1,000 mg PO BID 05/31/15 07/28/17 Famotidine [Pepcid] 20 mg PO HS 09/06/16 07/28/17 Insulin NPH/Reg Insulin 70/30 10 unit SQ BID 09/06/16 07/28/17 [humuLIN 70/30 VIAL] Meclizine [Antivert] 12.5 mg PO Q6H PRN 09/06/16 07/28/17 L.acidoph,Paracasei, B.lactis 1 cap PO DAILY 07/28/17 07/28/17 [Probiotic] Magnesium 200 mg PO DAILY 07/28/17 07/28/17 Metoprolol Tartrate [Lopressor] 12.5 mg PO BID 07/28/17 07/28/17 Nitroglycerin Sl Tabs [Nitrostat] 0.4 mg PO Q5M PRN 07/28/17 07/28/17 Buffalo-3 Fatty Acids/Fish Oil [Fish 1 cap PO DAILY 07/28/17 07/28/17 Oil 1,000 mg Softgel] Previous Rx's Medication Instructions Recorded Aspirin 325 mg PO DAILY tab 07/29/17 Allergies Allergy/AdvReac Type Severity Reaction Status Date / Time iodine Allergy Wheezing Verified 03/14/19 21:54 amoxicillin trihydrate AdvReac Nausea & Verified 03/14/19 21:54 [From Augmentin] Vomiting potassium clavulanate AdvReac Nausea & Verified 03/14/19 21:54 [From Augmentin] Vomiting Review of Systems ROS Other: All systems not noted in ROS Statement are negative. <Bert Guy - Last Filed: 03/14/19 23:50> ROS Other: All systems not noted in ROS Statement are negative. <Terra Lizarraga - Last Filed: 03/15/19 07:35> ROS Statement: Those systems with pertinent positive or pertinent negative responses have been documented in the HPI. Past Medical History Past Medical History: Atrial Fibrillation, Coronary Artery Disease (CAD), Chest Pain / Angina, Heart Failure, Diabetes Mellitus, Eye Disorder, GERD/Reflux, Hypertension, Neurologic Disorder, Osteoarthritis (OA), Syncope Additional Past Medical History / Comment(s): C/O "LT EYE ITCHING AND PUFFINESS"DIABETIC RETINOPATHY- HAD MULTIPLE LASER SX BUT ISLEGALLY BLIND, PASTCARDIAC ARREST-SON STATED PT HAD 2 HEART ATTACKS", NUMBNESS TO FINGERS , PAST FALL D/T SYNCOPE-BROKE LT ANKLE-WORE A BOOT. ANKLE SWELLING. "VERY SENSATIVE TO BP MEDS", SEVERAL ABD HERNIAS, MULTIPLE UTI'S,HERNIATED DISC, PAST BROKEN ANKLE(LT), NUMBNESS LOWER FINGERS. PT HAS AN IDENTICAL TWIN SISTER THAT ALSO IS BLIND D/T RETINOPATHY History of Any Multi-Drug Resistant Organisms: None Reported Past Surgical History: Appendectomy, Cholecystectomy, Heart Catheterization, Hernia Repair Additional Past Surgical History / Comment(s): MULTIPLE EYE SURGERIES, LOOP RECORDER , COLONOSCOPY Past Anesthesia/Blood Transfusion Reactions: No Reported Reaction Past Psychological History: Depression Smoking Status: Never smoker Past Alcohol Use History: None Reported Past Drug Use History: None Reported - Past Family History Mother Family Medical History: No Reported History Additional Family Medical History / Comment(s): FROM COMPLICATIONS OF A SURGURY WHEN PT WAS 4 YEARS OLD. Father Family Medical History: Dementia Additional Family Medical History / Comment(s): AT AGE 88 FROM [place] Sister(s) Family Medical History: Hypertension, Myocardial Infarction ([place]) Additional Family Medical History / Comment(s): COLON [place] <Bert Guy - Last Filed: 03/14/19 23:50> General Exam Limitations: physical limitation <Bert Guy - Last Filed: 03/14/19 23:50> - General Exam Comments Initial Comments: Constitutional: NAD, AOX3, Pt has pleasant affect. HEENT: NC/AT, trachea midline, neck supple, no lymphadenopathy. Posterior pharynx non erythematous, without exudates. External ears appear normal, without discharge. Mucous membranes moist. Eyes PERRLA, EOM intact. There is no scleral icterus. No pallor noted. Cardiopulmonary: RRR, no murmurs, rubs or gallops, no JVD noted. Lungs CTAB in anterior and posterior green. No peripheral edema. Abdominal exam: Abdomen soft and non-distended. Abdomen non-tender to palpation in all 4 quadrants. Multiple hernias noted. Bowel sounds active in LLQ. No hepatosplenomegaly. No ecchymosis Neuro: CN II-XII grossly intact. No nuchal rigidity. Cervical spine nontender to palpation. MSK: No posterior calf tenderness bilaterally, homans sign negative bilaterally. Posterior tibialis and radial pulse +2 bilaterally. Sensation intact in upper and lower extremities. Full active ROM in upper and lower extremities, 5/5 s tregnth. (Bert Guy) Course Vital Signs 03/14/19 03/14/19 03/14/19 21:50 22:30 23:40 Temperature 97.8 F 97.1 F L Pulse Rate 72 69 71 Respiratory 18 18 18 Rate Blood Pressure 155/72 150/81 123/52 O2 Sat by Pulse 99 98 98 Oximetry 03/15/19 03/15/19 00:27 01:18 Temperature 97.4 F L Pulse Rate 59 L 50 L Respiratory 18 18 Rate Blood Pressure 120/64 105/73 O2 Sat by Pulse 98 96 Oximetry Medical Decision Making - EKG Data -: EKG Interpreted by Me (and dr lizarraga) <Bert Guy - Last Filed: 03/14/19 23:50> - Lab Data Result diagrams: 03/14/19 23:35 03/14/19 23:35 <Terra Lizarraga - Last Filed: 03/15/19 07:35> - Medical Decision Making I personally saw and evaluated the patient. She reported feeling much better after fluids and a GI cocktail. She did have mild lactic acidosis however this may be related to being on metformin. I did offer to computed tomography scan the patient however she reports feeling much better doesn't feel this is necessary her son at bedside states that he's been trying to convince her that she suffering from GERD-like symptoms and needs treatment. At this time patient and family are comfortable with the plan for discharge home. Patient requesting a sandwich and something to drink prior to discharge however family reported they picked up food for her and would like to take her to get the mail today is arty purchased. (Terra Lizarraga) - Lab Data Lab Results 03/14/19 03/14/19 03/14/19 Range/Units 22:03 23:35 23:35 WBC 7.3 (3.8-10.6) k/uL RBC 4.24 (3.80-5.40) m/uL Hgb 12.6 (11.4-16.0) gm/dL Hct 37.0 (34.0-46.0) % MCV 87.4 D (80.0-100.0) fL MCH 29.7 (25.0-35.0) pg MCHC 34.0 (31.0-37.0) g/dL RDW 13.8 (11.5-15.5) % Plt Count 215 (150-450) k/uL Neutrophils % 68 % Lymphocytes % 18 % Monocytes % 6 % Eosinophils % 5 % Basophils % 0 % Neutrophils # 5.0 (1.3-7.7) k/uL Lymphocytes # 1.3 (1.0-4.8) k/uL Monocytes # 0.5 (0-1.0) k/uL Eosinophils # 0.3 (0-0.7) k/uL Basophils # 0.0 (0-0.2) k/uL Sodium 138 (137-145) mmol/L Potassium 4.3 (3.5-5.1) mmol/L Chloride 100 (98-107) mmol/L Carbon Dioxide 27 (22-30) mmol/L Anion Gap 11 mmol/L BUN 22 H (7-17) mg/dL Creatinine 0.89 (0.52-1.04) mg/dL Est GFR (CKD-EPI)AfAm 71 (>60 ml/min/1.73 sqM) Est GFR (CKD-EPI)NonAf 61 (>60 ml/min/1.73 sqM) Glucose 259 H (74-99) mg/dL Lactic Ac Sepsis Rflx Plasma Lactic Acid Clint (0.7-2.0) mmol/L Calcium 9.7 (8.4-10.2) mg/dL Phosphorus 3.2 (2.5-4.5) mg/dL Magnesium 2.0 (1.6-2.3) mg/dL Total Bilirubin 0.7 (0.2-1.3) mg/dL AST 20 (14-36) U/L ALT 24 (9-52) U/L Alkaline Phosphatase 82 (38-126) U/L Troponin I (0.000-0.034) ng/mL Total Protein 7.5 (6.3-8.2) g/dL Albumin 4.3 (3.5-5.0) g/dL Lipase 138 (23-300) U/L Urine Color Light Yellow Urine Appearance Clear (Clear) Urine pH 5.0 (5.0-8.0) Ur Specific White 1.008 (1.001-1.035) Urine Protein Negative (Negative) Urine Glucose (UA) 3+ H (Negative) Urine Ketones Negative (Negative) Urine Blood Small H (Negative) Urine Nitrite Negative (Negative) Urine Bilirubin Negative (Negative) Urine Urobilinogen <2.0 (<2.0) mg/dL Ur Leukocyte Esterase Negative (Negative) Urine RBC 1 (0-5) /hpf Urine WBC <1 (0-5) /hpf Hyaline Casts 1 (0-2) /lpf Urine Mucus Rare H (None) /hpf 03/14/19 03/14/19 03/15/19 Range/Units 23:35 23:35 00:29 WBC (3.8-10.6) k/uL RBC (3.80-5.40) m/uL Hgb (11.4-16.0) gm/dL Hct (34.0-46.0) % MCV (80.0-100.0) fL MCH (25.0-35.0) pg MCHC (31.0-37.0) g/dL RDW (11.5-15.5) % Plt Count (150-450) k/uL Neutrophils % % Lymphocytes % % Monocytes % % Eosinophils % % Basophils % % Neutrophils # (1.3-7.7) k/uL Lymphocytes # (1.0-4.8) k/uL Monocytes # (0-1.0) k/uL Eosinophils # (0-0.7) k/uL Basophils # (0-0.2) k/uL Sodium (137-145) mmol/L Potassium (3.5-5.1) mmol/L Chloride (98-107) mmol/L Carbon Dioxide (22-30) mmol/L Anion Gap mmol/L BUN (7-17) mg/dL Creatinine (0.52-1.04) mg/dL Est GFR (CKD-EPI)AfAm (>60 ml/min/1.73 sqM) Est GFR (CKD-EPI)NonAf (>60 ml/min/1.73 sqM) Glucose (74-99) mg/dL Lactic Ac Sepsis Rflx Y Plasma Lactic Acid Clint 2.7 H* (0.7-2.0) mmol/L Calcium (8.4-10.2) mg/dL Phosphorus (2.5-4.5) mg/dL Magnesium (1.6-2.3) mg/dL Total Bilirubin (0.2-1.3) mg/dL AST (14-36) U/L ALT (9-52) U/L Alkaline Phosphatase (38-126) U/L Troponin I <0.012 (0.000-0.034) ng/mL Total Protein (6.3-8.2) g/dL Albumin (3.5-5.0) g/dL Lipase (23-300) U/L Urine Color Urine Appearance (Clear) Urine pH (5.0-8.0) Ur Specific White (1.001-1.035) Urine Protein (Negative) Urine Glucose (UA) (Negative) Urine Ketones (Negative) Urine Blood (Negative) Urine Nitrite (Negative) Urine Bilirubin (Negative) Urine Urobilinogen (<2.0) mg/dL Ur Leukocyte Esterase (Negative) Urine RBC (0-5) /hpf Urine WBC (0-5) /hpf Hyaline Casts (0-2) /lpf Urine Mucus (None) /hpf - EKG Data EKG Comments: Ventricular rate 66, QRS 88, QT/QTc 412 since 431. Atrial fibrillation, no concern for acute ischemia. (Bert Guy) Disposition <Bert Guy - Last Filed: 03/14/19 23:50> Is patient prescribed a controlled substance at d/c from ED?: No <Terra Lizarraga - Last Filed: 03/15/19 07:35> Clinical Impression: Abdominal pain Disposition: HOME SELF-CARE Condition: Stable Instructions (If sedation given, give patient instructions): Abdominal Pain (ED) Referrals: Ruthie Jacob MD [Primary Care Provider] - 1-2 days
[2019-03-14 23:48] LABS: Basophils % (A) 0 %; Eosinophils # (A) 0.3 k/uL (0-0.7); Eosinophils % (A) 5 %; HGB 12.6 gm/dL (11.4-16.0); Lymphocytes # (A) 1.3 k/uL (1.0-4.8); Lymphocytes % (A) 18 %; MCH 29.7 pg (25.0-35.0); Mean Platelet Volume 7.7; Monocytes # (A) 0.5 k/uL (0-1.0); Monocytes % (A) 6 %; Neutrophils % (A) 68 %; Platelet Count 215 k/uL (150-450); RBC 4.24 m/uL (3.80-5.40); RDW 13.8 % (11.5-15.5); WBC 7.3 k/uL (3.8-10.6)
[2019-03-14] MEDS ORDERED: MAG HYDROX/AL HYDROX/SIMETH 30 ML, HYOSCYAMINE ELIXIR 10 ML, CIMETIDINE HCL 300 MG, LID... PO STA ×4 (23:49)
[2019-03-14 23:52] LABS: MCV 87.4 fL (80.0-100.0)
[2019-03-14 23:57] LABS: Albumin 4.3 g/dL (3.5-5.0); Calcium 9.7 mg/dL (8.4-10.2); Phosphorus 3.2 mg/dL (2.5-4.5); Total Bilirubin 0.7 mg/dL (0.2-1.3); Total Protein 7.5 g/dL (6.3-8.2)
[2019-03-15 00:26] LABS: Potassium 4.3 mmol/L (3.5-5.1)
[2019-03-15 01:21] VITALS: BP 105/73; PULSE 50; TEMP 97.4
[2019-03-15] MEDS ORDERED: SODIUM CHLORIDE 0.9% 1,000 ML IV ONE (01:21)
== END 2019-03-15 01:39 | disposition home or self-care (01) ==
LOC: EC 21:48
DX: R10.84 Generalized abdominal pain (principal); M54.2 Cervicalgia; E87.2 Acidosis; I48.91 Unspecified atrial fibrillation; I25.119 Atherosclerotic heart disease of native coronary artery with unspecified angina pectoris; I11.0 Hypertensive heart disease with heart failure; I50.9 Heart failure, unspecified; E11.9 Type 2 diabetes mellitus without complications; K21.9 Gastro-esophageal reflux disease without esophagitis; E11.319 Type 2 diabetes mellitus with unspecified diabetic retinopathy without macular edema; I25.2 Old myocardial infarction; H54.62 Unqualified visual loss, left eye, normal vision right eye; Z79.4 Long term (current) use of insulin; Z79.899 Other long term (current) drug therapy; Z88.0 Allergy status to penicillin; Z88.8 Allergy status to other drugs, medicaments and biological substances; Z95.818 Presence of other cardiac implants and grafts; Z90.49 Acquired absence of other specified parts of digestive tract; Z53.8 Procedure and treatment not carried out for other reasons
CPT/HCPCS: 36415; 72050; 74018; 80053; 81001; 83605; 83690; 83735; 84100; 84484; 85025; 93005; 99285

== ENCOUNTER 2019-04-25 13:43 | Observation (INO) | payer MEDICARE ==
[2019-04-25] MEDS ORDERED: NITROGLYCERIN OINT 1 INCH/GM PACKET TOPICAL STA (14:35)
[2019-04-25 14:54] LABS: Basophils % (A) 0 %; Eosinophils # (A) 0.2 k/uL (0-0.7); Eosinophils % (A) 3 %; HCT 37.1 % (34.0-46.0); HGB 11.9 gm/dL (11.4-16.0); Lymphocytes # (A) 0.8 k/uL (1.0-4.8); Lymphocytes % (A) 12 %; MCH 28.8 pg (25.0-35.0); MCHC 32.1 g/dL (31.0-37.0); MCV 89.8 fL (80.0-100.0); Mean Platelet Volume 7.8; Monocytes # (A) 0.4 k/uL (0-1.0); Monocytes % (A) 6 %; Neutrophils % (A) 78 %; Platelet Count 212 k/uL (150-450); RBC 4.13 m/uL (3.80-5.40); RDW 14.1 % (11.5-15.5); WBC 6.4 k/uL (3.8-10.6)
[2019-04-25 15:04] LABS: Albumin 4.1 g/dL (3.5-5.0); Calcium 9.4 mg/dL (8.4-10.2); Potassium 4.7 mmol/L (3.5-5.1); Total Bilirubin 0.8 mg/dL (0.2-1.3); Total Protein 7.1 g/dL (6.3-8.2)
--- NOTE | 2019-04-25 15:13 | ED ---
General Adult HPI - General Chief complaint: Shortness of Breath Stated complaint: Arm/Neck Pain Time Seen by Provider: 04/25/19 13:55 Source: patient, family, RN notes reviewed Mode of arrival: ambulatory Limitations: no limitations, physical limitation - History of Present Illness Initial comments: This is an 78-year-old female presents emergency Department with a past medical history significant for blindness and hard of hearing. Patient also has diabetes coronary artery disease history of atrial fibrillation. Patient comes in today cutting of chest heaviness in the left side there is been intermittent over the last 2 weeks. Patient also states she's had some shortness of breath as well. Son states that the patient is also altered mentally occasionally over the last few days. Patient has not had any recent fever chills or cough. There 's been no abdominal pain and no nausea vomiting diarrhea. Patient denies headache patient denies numbness weakness. Patient states she does have heaviness in the left arm as well per patient states when she takes nitroglycerin the pain in the arm and chest go away as does the shortness of breath but they returned later on that day typically. - Related Data Home Medications Medication Instructions Recorded Confirmed Cyclobenzaprine [Flexeril] 10 mg PO BID 05/31/15 04/25/19 Gabapentin [Neurontin] 300 mg PO BID 05/31/15 04/25/19 Isosorbide Mononitrate [Isosorbide 30 mg PO QAM 05/31/15 04/25/19 Mononitrate ER] metFORMIN HCL 1,000 mg PO BID 05/31/15 04/25/19 Famotidine [Pepcid] 20 mg PO HS 09/06/16 04/25/19 Meclizine [Antivert] 12.5 mg PO Q6H PRN 09/06/16 04/25/19 Aspirin [Adult Low Dose Aspirin EC] 81 mg PO DAILY 04/25/19 04/25/19 Ibuprofen [Motrin] 600 mg PO Q8HR PRN 04/25/19 04/25/19 Insulin NPH Hum/Reg Insulin Hm 14 unit SQ BID 04/25/19 04/25/19 [NovoLIN 70-30 100 UNIT/ML VIAL] Magnesium Oxide [Mag-Ox] 250 mg PO BID 04/25/19 04/25/19 Metoprolol Tartrate [Lopressor] 12.5 mg PO BID 04/25/19 04/25/19 Oxybutynin Xl [Ditropan Xl] 5 mg PO DAILY 04/25/19 04/25/19 buPROPion XL [Wellbutrin Xl] 150 mg PO DAILY 04/25/19 04/25/19 Allergies Allergy/AdvReac Type Severity Reaction Status Date / Time iodine Allergy Wheezing Verified 04/25/19 14:32 amoxicillin trihydrate AdvReac Nausea & Verified 04/25/19 14:32 [From Augmentin] Vomiting potassium clavulanate AdvReac Nausea & Verified 04/25/19 14:32 [From Augmentin] Vomiting Review of Systems ROS Statement: Those systems with pertinent positive or pertinent negative responses have been documented in the HPI. ROS Other: All systems not noted in ROS Statement are negative. Past Medical History Past Medical History: Atrial Fibrillation, Coronary Artery Disease (CAD), Chest Pain / Angina, Heart Failure, Diabetes Mellitus, Eye Disorder, GERD/Reflux, Hypertension, Neurologic Disorder, Osteoarthritis (OA), Syncope Additional Past Medical History / Comment(s): C/O "LT EYE ITCHING AND PUFFINESS"DIABETIC RETINOPATHY- HAD MULTIPLE LASER SX BUT ISLEGALLY BLIND, PASTCARDIAC ARREST-SON STATED PT HAD 2 HEART ATTACKS", NUMBNESS TO FINGERS , PAST FALL D/T SYNCOPE-BROKE LT ANKLE-WORE A BOOT. ANKLE SWELLING. "VERY SENSATIVE TO BP MEDS", SEVERAL ABD HERNIAS, MULTIPLE UTI'S,HERNIATED DISC, PAST BROKEN ANKLE(LT), NUMBNESS LOWER FINGERS. PT HAS AN IDENTICAL TWIN SISTER THAT ALSO IS BLIND D/T RETINOPATHY History of Any Multi-Drug Resistant Organisms: None Reported Past Surgical History: Appendectomy, Cholecystectomy, Heart Catheterization, Hernia Repair Additional Past Surgical History / Comment(s): MULTIPLE EYE SURGERIES, LOOP RECORDER , COLONOSCOPY Past Anesthesia/Blood Transfusion Reactions: No Reported Reaction Past Psychological History: Depression Smoking Status: Never smoker Past Alcohol Use History: None Reported Past Drug Use History: None Reported - Past Family History Mother Family Medical History: No Reported History Additional Family Medical History / Comment(s): FROM COMPLICATIONS OF A SURGURY WHEN PT WAS 4 YEARS OLD. Father Family Medical History: Dementia Additional Family Medical History / Comment(s): AT AGE 88 FROM [place] Sister(s) Family Medical History: Hypertension, Myocardial Infarction ([place]) Additional Family Medical History / Comment(s): [place] General Exam - General Exam Comments Initial Comments: GENERAL: Patient is well-developed and well-nourished. Patient is nontoxic and well- hydrated and is in mild distress. ENT: Neck is soft and supple. No significant lymphadenopathy is noted. Oropharynx is clear. Moist mucous membranes. Neck has full range of motion without eliciting any pain. EYES: The sclera were anicteric and conjunctiva were pink and moist. Extraocular movements were intact and pupils were equal round and reactive to light. Eyelids were unremarkable. PULMONARY: Unlabored respirations. Good breath sounds bilaterally. No audible rales rho nchi or wheezing was noted. CARDIOVASCULAR: Patient has an irregular heartbeat. ABDOMEN: Soft and nontender with normal bowel sounds. No palpable organomegaly was noted. There is no palpable pulsatile mass. SKIN: Skin is clear with no lesions or rashes and otherwise unremarkable. NEUROLOGIC: Patient is alert and oriented x3. Cranial nerves II through XII are grossly intact. Motor and sensory are also intact. Normal speech, volume and content. Symmetrical smile. Cerebellar exam grossly intact. MUSCULOSKELETAL: Normal extremities with adequate strength and full range of motion. LYMPHATICS: No significant lymphadenopathy is noted PSYCHIATRIC: Normal psychiatric evaluation. Limitations: no limitations, physical limitation Course Vital Signs 04/25/19 04/25/19 13:51 14:54 Temperature 97.7 F Pulse Rate 66 78 Respiratory 18 20 Rate Blood Pressure 161/80 139/58 O2 Sat by Pulse 98 98 Oximetry Medical Decision Making - Medical Decision Making EKG shows atrial fibrillation 79 bpm QRS is 82 QT interval 376 QTC is 431. Patient's EKG shows no ST segment elevation or depression or T wave abnormalities are noted. Chest x-ray shows mild pulmonary edema patient received Lasix in the hospital. - Lab Data Result diagrams: 04/25/19 14:24 04/25/19 14:24 Lab Results 04/25/19 04/25/19 04/25/19 Range/Units 14:24 14:24 14:24 WBC 6.4 (3.8-10.6) k/uL RBC 4.13 (3.80-5.40) m/uL Hgb 11.9 (11.4-16.0) gm/dL Hct 37.1 (34.0-46.0) % MCV 89.8 (80.0-100.0) fL MCH 28.8 (25.0-35.0) pg MCHC 32.1 (31.0-37.0) g/dL RDW 14.1 (11.5-15.5) % Plt Count 212 (150-450) k/uL Neutrophils % 78 % Lymphocytes % 12 % Monocytes % 6 % Eosinophils % 3 % Basophils % 0 % Neutrophils # 5.0 (1.3-7.7) k/uL Lymphocytes # 0.8 L (1.0-4.8) k/uL Monocytes # 0.4 (0-1.0) k/uL Eosinophils # 0.2 (0-0.7) k/uL Basophils # 0.0 (0-0.2) k/uL PT (9.0-12.0) sec INR (<1.2) APTT (22.0-30.0) sec Sodium 140 (137-145) mmol/L Potassium 4.7 (3.5-5.1) mmol/L Chloride 105 (98-107) mmol/L Carbon Dioxide 29 (22-30) mmol/L Anion Gap 6 mmol/L BUN 19 H (7-17) mg/dL Creatinine 0.89 (0.52-1.04) mg/dL Est GFR (CKD-EPI)AfAm 71 (>60 ml/min/1.73 sqM) Est GFR (CKD-EPI)NonAf 61 (>60 ml/min/1.73 sqM) Glucose 245 H (74-99) mg/dL Calcium 9.4 (8.4-10.2) mg/dL Magnesium 2.0 (1.6-2.3) mg/dL Total Bilirubin 0.8 (0.2-1.3) mg/dL AST 22 (14-36) U/L ALT 21 (9-52) U/L Alkaline Phosphatase 91 (38-126) U/L Troponin I <0.012 (0.000-0.034) ng/mL NT-Pro-B Natriuret Pep pg/mL Total Protein 7.1 (6.3-8.2) g/dL Albumin 4.1 (3.5-5.0) g/dL Urine Color Urine Appearance (Clear) Urine pH (5.0-8.0) Ur Specific Sarah (1.001-1.035) Urine Protein (Negative) Urine Glucose (UA) (Negative) Urine Ketones (Negative) Urine Blood (Negative) Urine Nitrite (Negative) Urine Bilirubin (Negative) Urine Urobilinogen (<2.0) mg/dL Ur Leukocyte Esterase (Negative) Urine RBC (0-5) /hpf Urine WBC (0-5) /hpf Ur Squamous Epith Cells (0-4) /hpf Urine Bacteria (None) /hpf Urine Mucus (None) /hpf 04/25/19 04/25/19 04/25/19 Range/Units 14:24 15:06 15:14 WBC (3.8-10.6) k/uL RBC (3.80-5.40) m/uL Hgb (11.4-16.0) gm/dL Hct (34.0-46.0) % MCV (80.0-100.0) fL MCH (25.0-35.0) pg MCHC (31.0-37.0) g/dL RDW (11.5-15.5) % Plt Count (150-450) k/uL Neutrophils % % Lymphocytes % % Monocytes % % Eosinophils % % Basophils % % Neutrophils # (1.3-7.7) k/uL Lymphocytes # (1.0-4.8) k/uL Monocytes # (0-1.0) k/uL Eosinophils # (0-0.7) k/uL Basophils # (0-0.2) k/uL PT 11.1 (9.0-12.0) sec INR 1.0 (<1.2) APTT 26.2 (22.0-30.0) sec Sodium (137-145) mmol/L Potassium (3.5-5.1) mmol/L Chloride (98-107) mmol/L Carbon Dioxide (22-30) mmol/L Anion Gap mmol/L BUN (7-17) mg/dL Creatinine (0.52-1.04) mg/dL Est GFR (CKD-EPI)AfAm (>60 ml/min/1.73 sqM) Est GFR (CKD-EPI)NonAf (>60 ml/min/1.73 sqM) Glucose (74-99) mg/dL Calcium (8.4-10.2) mg/dL Magnesium (1.6-2.3) mg/dL Total Bilirubin (0.2-1.3) mg/dL AST (14-36) U/L ALT (9-52) U/L Alkaline Phosphatase (38-126) U/L Troponin I (0.000-0.034) ng/mL NT-Pro-B Natriuret Pep 1810 pg/mL Total Protein (6.3-8.2) g/dL Albumin (3.5-5.0) g/dL Urine Color Yellow Urine Appearance Clear (Clear) Urine pH 6.0 (5.0-8.0) Ur Specific Sarah 1.021 (1.001-1.035) Urine Protein Negative (Negative) Urine Glucose (UA) 3+ H (Negative) Urine Ketones Negative (Negative) Urine Blood Small H (Negative) Urine Nitrite Negative (Negative) Urine Bilirubin Negative (Negative) Urine Urobilinogen <2.0 (<2.0) mg/dL Ur Leukocyte Esterase Small H (Negative) Urine RBC 4 (0-5) /hpf Urine WBC 14 H (0-5) /hpf Ur Squamous Epith Cells 1 (0-4) /hpf Urine Bacteria Rare H (None) /hpf Urine Mucus Rare H (None) /hpf Disposition Clinical Impression: Chest pain, Pulmonary edema Disposition: ADMITTED IP TO THIS HOSP Referrals: Ruthie Jacob MD [Primary Care Provider] - 1-2 days Time of Disposition: 16:44
[2019-04-25 15:30] LABS: Partial Thromboplastin Time 26.2 sec (22.0-30.0); Prothrombin Time 11.1 sec (9.0-12.0)
[2019-04-25 16:09] LABS: Appearance,Urine Clear (Clear); Bacteria,Urine Rare /hpf; Bilirubin,Urine Negative (Negative); Blood,Urine Small (Negative); Color,Urine Yellow; Glucose,Urine (UA) 3+ (Negative); Ketones,Urine Negative (Negative); Leukocyte Esterase,Urine Small (Negative); Mucus,Urine Rare /hpf; Nitrite,Urine Negative (Negative); Protein,Urine Negative (Negative); RBC,Urine 4 /hpf (0-5); Specific Gravity,Urine 1.021 (1.001-1.035); Squamous Epithelial Cell,Urine 1 /hpf (0-4); Urobilinogen,Urine <2.0 mg/dL (<2.0)
[2019-04-25] MEDS ORDERED: FUROSEMIDE 10 MG/ML 4 ML VIAL IV STA (16:42)
--- NOTE | 2019-04-25 17:02 | XR ---
EXAMINATION TYPE: XR chest 2V DATE OF EXAM: 04/25/2019 COMPARISON: Prior chest x-ray 07/28/2017 HISTORY: Chest pain, shortness of breath TECHNIQUE: Frontal and lateral views of the chest are obtained. FINDINGS: There is no focal air space opacity, pleural effusion, or pneumothorax seen. The cardiac silhouette size is stable, enlarged. There are coronary artery calcifications present. Prominent lung volume may be indicative of underlying COPD. The aorta is dense. Interstitium appears prominently. The osseous structures are intact. IMPRESSION: Stable cardiomegaly. Difficult to exclude early interstitial edema, correlate, follow-up .
[2019-04-25 18:15] VITALS: BMI 41.7
[2019-04-25] MEDS ORDERED: MECLIZINE 12.5 MG TAB PO PRN (18:44)
[2019-04-25] MEDS ORDERED: IBUPROFEN 600 MG TAB PO PRN (18:44)
[2019-04-25] MEDS: NITROGLYCERIN OINT 1 INCH/GM PACKET TOPICAL SCH ×2 (19:45→22:53)
[2019-04-25 20:13] LABS: Glucose,Whole Blood 219 mg/dL (75-99)
[2019-04-25] MEDS: GABAPENTIN 300 MG CAP PO SCH (20:47)
[2019-04-25] MEDS: FAMOTIDINE 20 MG TAB PO SCH (20:47)
[2019-04-25] MEDS: MAGNESIUM OXIDE 400 MG TAB PO SCH (20:47)
[2019-04-25] MEDS: CYCLOBENZAPRINE 10 MG TAB PO SCH (20:47)
[2019-04-25] MEDS: METOPROLOL TARTRATE 12.5 MG TAB PO SCH (20:47)
[2019-04-25] MEDS: INSULIN ASPART (NovoLOG) 100 UNIT/ML VIAL SQ SCH (20:49)
[2019-04-25] MEDS: INSULN ASP PRT/INSULIN ASPART 100 UNIT/ML 10 ML VIAL SQ SCH (20:50)
[2019-04-26] MEDS ORDERED: FUROSEMIDE 10 MG/ML 4 ML VIAL IV SCH (06:00)
[2019-04-26 06:49] LABS: Glucose,Whole Blood 127 mg/dL (75-99)
--- NOTE | 2019-04-26 08:21 | P.CRDCN ---
History of Present Illness Consult date: 04/26/19 Chief complaint: Chest pain History of present illness: This is a pleasant 78-year-old female patient with a past medical history significant for diabetes, hypertension, dyslipidemia, and also the patient is blind, was brought to the emergency room because of chest discomfort. For the last few days, she has been experiencing intermittent episodes of left arm discomfort and left arm tingling associated with left shoulder discomfort and sometimes next discomfort. She stated that she did not have chest pain. No shortness of breath. No dizziness. No heart racing. And no syncope. The EKG showed atrial fibrillation was controlled heart rate and nonspecific ST and T wave abnormalities. 3 sets of cardiac enzymes were checked and came in to be unremarkable. Currently the patient is chest pain-free. In 2017, the patient was admitted to the hospital with a chest discomfort and at that point underwent a stress test and echocardiogram and both came in to be unremarkable. Past Medical History Past Medical History: Atrial Fibrillation, Coronary Artery Disease (CAD), Chest Pain / Angina, Heart Failure, Diabetes Mellitus, Eye Disorder, GERD/Reflux, Hypertension, Neurologic Disorder, Osteoarthritis (OA), Syncope Additional Past Medical History / Comment(s): C/O "LT EYE ITCHING AND PUFFINESS"DIABETIC RETINOPATHY- HAD MULTIPLE LASER SX BUT ISLEGALLY BLIND, PASTCARDIAC ARREST-SON STATED PT HAD 2 HEART ATTACKS", NUMBNESS TO FINGERS , PAST FALL D/T SYNCOPE-BROKE LT ANKLE-WORE A BOOT. ANKLE SWELLING. "VERY SENSATIVE TO BP MEDS", SEVERAL ABD HERNIAS, MULTIPLE UTI'S,HERNIATED DISC, PAST BROKEN ANKLE(LT), NUMBNESS LOWER FINGERS. PT HAS AN IDENTICAL TWIN SISTER THAT ALSO IS BLIND D/T RETINOPATHY History of Any Multi-Drug Resistant Organisms: None Reported Past Surgical History: Appendectomy, Cholecystectomy, Heart Catheterization, Hernia Repair Additional Past Surgical History / Comment(s): MULTIPLE EYE SURGERIES, LOOP RECORDER , COLONOSCOPY Past Anesthesia/Blood Transfusion Reactions: No Reported Reaction Past Psychological History: Depression Additional Psychological History / Comment(s): PT'S SON LIVES WITH HER .BETWEEN SON AND DAUGHTER THEY CARE FOR PT. PT USES A CANE INSIDE HOME AND WALKER WHEN OUTSIDE. PAST FALLS. NO OTHER OUTSIDE SERVICES RECIEVED. HAS BERTA READER,GLUCOSE MONITOR, CANE/WALKER. BARS ON BED AND IN BATHROOM. Smoking Status: Never smoker Past Alcohol Use History: None Reported Past Drug Use History: None Reported - Past Family History Mother Family Medical History: No Reported History Additional Family Medical History / Comment(s): FROM COMPLICATIONS OF A SURGURY WHEN PT WAS 4 YEARS OLD. Father Family Medical History: Dementia Additional Family Medical History / Comment(s): AT AGE 88 FROM [place] Sister(s) Family Medical History: Hypertension, Myocardial Infarction ([place]) Additional Family Medical History / Comment(s): COLON CA Medications and Allergies Home Medications Medication Instructions Recorded Confirmed Type Cyclobenzaprine [Flexeril] 10 mg PO BID 05/31/15 04/25/19 History Gabapentin [Neurontin] 300 mg PO BID 05/31/15 04/25/19 History Isosorbide Mononitrate [Isosorbide 30 mg PO QAM 05/31/15 04/25/19 History Mononitrate ER] metFORMIN HCL 1,000 mg PO BID 05/31/15 04/25/19 History Famotidine [Pepcid] 20 mg PO HS 09/06/16 04/25/19 History Meclizine [Antivert] 12.5 mg PO Q6H PRN 09/06/16 04/25/19 History Aspirin [Adult Low Dose Aspirin EC] 81 mg PO DAILY 04/25/19 04/25/19 History Ibuprofen [Motrin] 600 mg PO Q8HR PRN 04/25/19 04/25/19 History Insulin NPH Hum/Reg Insulin Hm 14 unit SQ BID 04/25/19 04/25/19 History [NovoLIN 70-30 100 UNIT/ML VIAL] Magnesium Oxide [Mag-Ox] 250 mg PO BID 04/25/19 04/25/19 History Metoprolol Tartrate [Lopressor] 12.5 mg PO BID 04/25/19 04/25/19 History Oxybutynin Xl [Ditropan Xl] 5 mg PO DAILY 04/25/19 04/25/19 History buPROPion XL [Wellbutrin Xl] 150 mg PO DAILY 04/25/19 04/25/19 History Allergies Allergy/AdvReac Type Severity Reaction Status Date / Time iodine Allergy Wheezing Verified 04/25/19 14:32 amoxicillin trihydrate AdvReac Nausea & Verified 04/25/19 14:32 [From Augmentin] Vomiting potassium clavulanate AdvReac Nausea & Verified 04/25/19 14:32 [From Augmentin] Vomiting Physical Exam Vitals: Vital Signs Temp Pulse Pulse Pulse Resp BP BP 04/26/19 07:20 97.5 F L 76 18 113/79 04/26/19 03:16 18 04/26/19 03:15 97.8 F 76 18 96/58 04/26/19 00:00 98 F 67 18 155/87 04/25/19 19:17 14 04/25/19 18:30 98.0 F 79 14 142/83 04/25/19 17:42 71 18 152/81 04/25/19 16:54 98 F 71 20 152/81 04/25/19 14:54 78 20 139/58 04/25/19 13:51 97.7 F 66 18 161/80 Pulse Ox 04/26/19 07:20 98 04/26/19 03:16 04/26/19 03:15 96 04/26/19 00:00 96 04/25/19 19:17 04/25/19 18:30 95 04/25/19 17:42 96 04/25/19 16:54 98 04/25/19 14:54 98 04/25/19 13:51 98 Intake and Output 04/25/19 04/26/19 04/26/19 22:59 06:59 14:59 Other: Voiding Method Toilet Toilet Diaper Diaper Incontinent Incontinent # Voids 1 2 - Constitutional General appearance: no acute distress - Respiratory Respiratory: bilateral: CTA - Cardiovascular Rhythm: regular Heart sounds: normal: S1, S2 Results 04/25/19 14:24 04/25/19 14:24 Cardiac Enzymes 04/25/19 04/25/19 04/25/19 Range/Units 14:24 14:24 22:27 AST 22 (14-36) U/L Troponin I <0.012 <0.012 (0.000-0.034) ng/mL 04/26/19 Range/Units 02:39 AST (14-36) U/L Troponin I <0.012 (0.000-0.034) ng/mL Coagulation 04/25/19 Range/Units 15:06 PT 11.1 (9.0-12.0) sec APTT 26.2 (22.0-30.0) sec CBC 04/25/19 Range/Units 14:24 WBC 6.4 (3.8-10.6) k/uL RBC 4.13 (3.80-5.40) m/uL Hgb 11.9 (11.4-16.0) gm/dL Hct 37.1 (34.0-46.0) % Plt Count 212 (150-450) k/uL Comprehensive Metabolic Panel 04/25/19 Range/Units 14:24 Sodium 140 (137-145) mmol/L Potassium 4.7 (3.5-5.1) mmol/L Chloride 105 (98-107) mmol/L Carbon Dioxide 29 (22-30) mmol/L BUN 19 H (7-17) mg/dL Creatinine 0.89 (0.52-1.04) mg/dL Glucose 245 H (74-99) mg/dL Calcium 9.4 (8.4-10.2) mg/dL AST 22 (14-36) U/L ALT 21 (9-52) U/L Alkaline Phosphatase 91 (38-126) U/L Total Protein 7.1 (6.3-8.2) g/dL Albumin 4.1 (3.5-5.0) g/dL Current Medications Generic Name Dose Route Start Last Admin Trade Name Freq PRN Reason Stop Dose Admin Aspirin 81 mg 04/26/19 09:00 Aspirin PO DAILY SAVITA Bupropion HCl 150 mg 04/26/19 09:00 Wellbutrin Xl PO DAILY SAVITA Cyclobenzaprine HCl 10 mg 04/25/19 21:00 04/25/19 20:47 Flexeril PO 10 mg BID SAVITA Administration Famotidine 20 mg 04/25/19 21:00 04/25/19 20:47 Pepcid PO 20 mg HS SAVITA Administration Furosemide 40 mg 04/26/19 06:00 04/26/19 06:14 Lasix IV 40 mg Q12H SAVITA Administration Gabapentin 300 mg 04/25/19 21:00 04/25/19 20:47 Neurontin PO 300 mg BID SAVITA Administration Ibuprofen 600 mg 04/25/19 18:44 04/25/19 20:47 Motrin PO 600 mg Q8HR PRN Administration Pain Insulin Aspart 14 unit 04/25/19 21:00 04/25/19 20:50 Novolog Mix 70-30 Vial SQ 14 unit BID SAVITA Administration Insulin Aspart 0 unit 04/25/19 21:00 04/25/19 20:49 Novolog SQ 4 unit ACHS SAVITA Administration Protocol Isosorbide Mononitrate 60 mg 04/26/19 09:00 Imdur PO QAM SAVITA Magnesium Oxide 400 mg 04/25/19 21:00 04/25/19 20:47 Mag-Ox PO 400 mg BID SAVITA Administration Meclizine HCl 12.5 mg 04/25/19 18:44 Antivert PO Q6H PRN Vertigo Metoprolol Tartrate 12.5 mg 04/25/19 21:00 04/25/19 20:47 Lopressor PO 12.5 mg BID SAVITA Administration Oxybutynin Chloride 5 mg 04/26/19 09:00 Ditropan Xl PO DAILY SAVITA Intake and Output 04/25/19 04/26/19 04/26/19 22:59 06:59 14:59 Other: Voiding Method Toilet Toilet Diaper Diaper Incontinent Incontinent # Voids 1 2 04/25/19 14:24 04/25/19 14:24 Assessment and Plan Assessment: Assessment #1 atypical chest discomfort/left arm discomfort #2 multiple comorbidities including diabetes, hypertension, dyslipidemia Plan #1 acute coronary event was ruled out. #2 we will get an echocardiogram was Doppler #3 increase the dose of oral nitrate #4 advice keeping the patient one more day #5 follow-up with the patient. Thank you for allowing us participate in her care.
[2019-04-26] MEDS ORDERED: ISOSORBIDE MONONITRATE ER 30 MG TAB.ER.24H PO SCH (09:00)
[2019-04-26] MEDS: INSULIN ASPART (NovoLOG) 100 UNIT/ML VIAL SQ SCH ×4 (10:17→21:53)
[2019-04-26] MEDS: INSULN ASP PRT/INSULIN ASPART 100 UNIT/ML 10 ML VIAL SQ SCH ×2 (10:18→21:54)
[2019-04-26] MEDS: GABAPENTIN 300 MG CAP PO SCH ×2 (10:23→21:53)
[2019-04-26] MEDS: METOPROLOL TARTRATE 12.5 MG TAB PO SCH ×2 (10:23→21:53)
[2019-04-26] MEDS: CYCLOBENZAPRINE 10 MG TAB PO SCH ×2 (10:23→21:53)
[2019-04-26] MEDS: buPROPion XL 150 MG TAB.ER.24H PO SCH (10:23)
[2019-04-26] MEDS: MAGNESIUM OXIDE 400 MG TAB PO SCH ×2 (10:24→21:53)
[2019-04-26] MEDS: ASPIRIN 81 MG PO SCH (10:24)
[2019-04-26] MEDS: OXYBUTYNIN XL 5 MG TAB.ER.24 PO SCH (10:24)
[2019-04-26] MEDS: ISOSORBIDE MONONITRATE ER 60 MG TAB.ER.24H PO SCH (10:27)
[2019-04-26 11:41] LABS: Glucose,Whole Blood 161 mg/dL (75-99)
--- NOTE | 2019-04-26 12:24 | ECHOF ---
Referral Reason:chest pain,check valves MEASUREMENTS -------- HEIGHT: 162.6 cm WEIGHT: 110.2 kg BP: IVSd: 1.3 cm (0.6 - 1.1) LVIDd: 3.8 cm (3.9 - 5.3) LVPWd: 1.2 cm (0.6 - 1.1) IVSs: 1.5 cm LVIDs: 1.8 cm LVPWs: 1.4 cm LAESV Index (A-L): 30.59 ml/m Ao Diam: 2.5 cm (2.0 - 3.7) AV Cusp: 1.8 cm (1.5 - 2.6) LA Diam: 4.0 cm (2.7 - 3.8) MV EXCURSION: 17.701 mm (> 18.000) MV EF SLOPE: 113 mm/s (70 - 150) EPSS: 1.3 cm MV E Jerson: 1.01 m/s MV DecT: 133 ms MV A Jerson: 0.33 m/s MV E/A Ratio: 3.11 AV maxP.04 mmHg AV meanP.80 mmHg AR PHT: 254 ms RAP: 5.00 mmHg RVSP: 14.04 mmHg FINDINGS -------- Sinus rhythm. This was a technically good study. The left ventricular size is normal. There is mild concentric left ventricular hypertrophy. Overa ll left ventricular systolic function is normal with, an EF between 55 - 60 %. The right ventricle is normal in size. LA is midly dilated 29-33ml/m2. The right atrial size is normal. Interatrial and interventricular septum intact. Aortic valve is trileaflet and is mildly thickened. There is mild aortic regurgitation. The mitral valve leaflets are mildly thickened. Eebjjpmd-fc-[id number] mitral regurgitation is present. Mild tricuspid regurgitation present. The right ventricular systolic pressure, as measured by Doppl er, is 14.04mmHg. Pulmonic valve appears structurally normal. The aortic root size is normal. Normal inferior vena cava with normal inspiratory collapse consistent with estimated right atrial pre ssure of 5 mmHg. There is no pericardial effusion. CONCLUSIONS -------- 1. Sinus rhythm. 2. This was a technically good study. 3. The left ventricular size is normal. 4. There is mild concentric left ventricular hypertrophy. 5. Overall left ventricular systolic function is normal with, an EF between 55 - 60 %. 6. The right ventricle is normal in size. 7. LA is midly dilated 29-33ml/m2. 8. The right atrial size is normal. 9. Interatrial and interventricular septum intact. 10. Aortic valve is trileaflet and is mildly thickened. 11. There is mild aortic regurgitation. 12. The mitral valve leaflets are mildly thickened. 13. Vllhlpeh-ha-hromux mitral regurgitation is present. 14. Mild tricuspid regurgitation present. 15. The right ventricular systolic pressure, as measured by Doppler, is 14.04mmHg. 16. Pulmonic valve appears structurally normal. 17. The aortic root size is normal. 18. Normal inferior vena cava with normal inspiratory collapse consistent with estimated right atrial pressure of 5 mmHg. 19. There is no pericardial effusion. VICE PRESIDENT OF BUSINESS DEVELOPMENT: Carmelita Smith RDCS
[2019-04-26] MEDS ORDERED: IBUPROFEN 200 MG TAB PO PRN (14:36)
--- NOTE | 2019-04-26 14:45 | P.HPIM ---
History of Present Illness 78-year-old female legally blind came in with compensative chest pain appears to be muscular skeletal coming from the neck. Patient today is also comparing of epigastric burning sensation because the ibuprofen she is receiving patient chest pain is tingling numbness radiating to the left left shoulder as well as left the L arm area. Patient was evaluated by cardiology patient stated chest pain is moderate, nonpleuritic. Patient has and epigastric pain as well that is associated with food but the neck pain is not associated with food. Patient had 3 sets of cardiac enzymes to negative troponins are negative. Patient was on IV Lasix which probably is not necessary patient is not in heart failure exacerbation IV Lasix will be Discontinued and patient can resume her no oral Lasix patient has no evidence of pulmonary edema patient doesn't have any elevated JVD patient had normal ejection fraction was seen and valvular ab normalities. Patient blood pressure is low normal. Patient underwent stress test in 2017 which was not abnormal. Cardiology is not recommending any more further testing but the increased her isosorbide mononitrate and recommending monitoring for 1 more night. Review of Systems REVIEW OF SYSTEMS: CONSTITUTIONAL: No fever, no malaise, no fatigue. HEENT: No recent visual problems or hearing problems. Denied any sore throat. CARDIOVASCULAR: No orthopnea, PND, no palpitations, no syncope. PULMONARY: No shortness of breath, no cough, no hemoptysis. GASTROINTESTINAL: No diarrhea, no nausea, no vomiting, no abdominal pain. NEUROLOGICAL: No headaches, no weakness, no numbness. HEMATOLOGICAL: Denies any bleeding or petechiae. GENITOURINARY: Denies any burning micturition, frequency, or urgency. MUSCULOSKELETAL/RHEUMATOLOGICAL: Denies any joint pain, swelling, or any muscle pain. ENDOCRINE: Denies any polyuria or polydipsia. The rest of the 14-point review of systems is negative. Past Medical History Past Medical History: Atrial Fibrillation, Coronary Artery Disease (CAD), Chest Pain / Angina, Heart Failure, Diabetes Mellitus, Eye Disorder, GERD/Reflux, Hypertension, Neurologic Disorder, Osteoarthritis (OA), Syncope Additional Past Medical History / Comment(s): C/O "LT EYE ITCHING AND PUFFINESS"DIABETIC RETINOPATHY- HAD MULTIPLE LASER SX BUT ISLEGALLY BLIND, PASTCARDIAC ARREST-SON STATED PT HAD 2 HEART ATTACKS", NUMBNESS TO FINGERS , PAST FALL D/T SYNCOPE-BROKE LT ANKLE-WORE A BOOT. ANKLE SWELLING. "VERY SENSATIVE TO BP MEDS", SEVERAL ABD HERNIAS, MULTIPLE UTI'S,HERNIATED DISC, PAST BROKEN ANKLE(LT), NUMBNESS LOWER FINGERS. PT HAS AN IDENTICAL TWIN SISTER THAT ALSO IS BLIND D/T RETINOPATHY History of Any Multi-Drug Resistant Organisms: None Reported Past Surgical History: Appendectomy, Cholecystectomy, Heart Catheterization, Hernia Repair Additional Past Surgical History / Comment(s): MULTIPLE EYE SURGERIES, LOOP RECORDER , COLONOSCOPY Past Anesthesia/Blood Transfusion Reactions: No Reported Reaction Past Psychological History: Depression Additional Psychological History / Comment(s): PT'S SON LIVES WITH HER .BETWEEN SON AND DAUGHTER THEY CARE FOR PT. PT USES A CANE INSIDE HOME AND WALKER WHEN OUTSIDE. PAST FALLS. NO OTHER OUTSIDE SERVICES RECIEVED. HAS BERTA READER,GLUCOSE MONITOR, CANE/WALKER. BARS ON BED AND IN BATHROOM. Smoking Status: Never smoker Past Alcohol Use History: None Reported Past Drug Use History: None Reported - Past Family History Mother Family Medical History: No Reported History Additional Family Medical History / Comment(s): FROM COMPLICATIONS OF A SURGURY WHEN PT WAS 4 YEARS OLD. Father Family Medical History: Dementia Additional Family Medical History / Comment(s): AT AGE 88 FROM [place] Sister(s) Family Medical History: Hypertension, Myocardial Infarction ([place]) Additional Family Medical History / Comment(s): COLON CA Medications and Allergies Home Medications Medication Instructions Recorded Confirmed Type Cyclobenzaprine [Flexeril] 10 mg PO BID 05/31/15 04/25/19 History Gabapentin [Neurontin] 300 mg PO BID 05/31/15 04/25/19 History Isosorbide Mononitrate [Isosorbide 30 mg PO QAM 05/31/15 04/25/19 History Mononitrate ER] metFORMIN HCL 1,000 mg PO BID 05/31/15 04/25/19 History Famotidine [Pepcid] 20 mg PO HS 09/06/16 04/25/19 History Meclizine [Antivert] 12.5 mg PO Q6H PRN 09/06/16 04/25/19 History Aspirin [Adult Low Dose Aspirin EC] 81 mg PO DAILY 04/25/19 04/25/19 History Ibuprofen [Motrin] 600 mg PO Q8HR PRN 04/25/19 04/25/19 History Insulin NPH Hum/Reg Insulin Hm 14 unit SQ BID 04/25/19 04/25/19 History [NovoLIN 70-30 100 UNIT/ML VIAL] Magnesium Oxide [Mag-Ox] 250 mg PO BID 04/25/19 04/25/19 History Metoprolol Tartrate [Lopressor] 12.5 mg PO BID 04/25/19 04/25/19 History Oxybutynin Xl [Ditropan Xl] 5 mg PO DAILY 04/25/19 04/25/19 History buPROPion XL [Wellbutrin Xl] 150 mg PO DAILY 04/25/19 04/25/19 History Allergies Allergy/AdvReac Type Severity Reaction Status Date / Time iodine Allergy Wheezing Verified 04/25/19 14:32 amoxicillin trihydrate AdvReac Nausea & Verified 04/25/19 14:32 [From Augmentin] Vomiting potassium clavulanate AdvReac Nausea & Verified 04/25/19 14:32 [From Augmentin] Vomiting Physical Exam Vitals: Vital Signs Temp Pulse Pulse Pulse Resp BP BP 04/26/19 11:46 68 18 04/26/19 11:13 97.5 F L 68 18 97/52 04/26/19 08:00 79 76 18 04/26/19 07:20 97.5 F L 76 18 113/79 04/26/19 03:16 18 04/26/19 03:15 97.8 F 76 18 96/58 04/26/19 00:00 98 F 67 18 155/87 04/25/19 19:17 14 04/25/19 18:30 98.0 F 79 14 142/83 04/25/19 17:42 71 18 152/81 04/25/19 16:54 98 F 71 20 152/81 04/25/19 14:54 78 20 139/58 Pulse Ox 04/26/19 11:46 04/26/19 11:13 04/26/19 08:00 04/26/19 07:20 98 04/26/19 03:16 04/26/19 03:15 96 04/26/19 00:00 96 04/25/19 19:17 04/25/19 18:30 95 04/25/19 17:42 96 04/25/19 16:54 98 04/25/19 14:54 98 Intake and Output 04/25/19 04/26/19 04/26/19 22:59 06:59 14:59 Other: Voiding Method Toilet Toilet Toilet Diaper Diaper Diaper Incontinent Incontinent # Voids 1 2 1 PHYSICAL EXAMINATION: GENERAL: The patient is alert and oriented x3, not in any acute distress. Well developed, well nourished. HEENT: Pupils are round and equally reacting to light. EOMI. No scleral icterus. No conjunctival pallor. Normocephalic, atraumatic. No pharyngeal erythema. No thyromegaly. CARDIOVASCULAR: S1 and S2 present. No murmurs, rubs, or gallops. PULMONARY: Chest is clear to auscultation, no wheezing or crackles. ABDOMEN: Soft, nontender, nondistended, normoactive bowel sounds. No palpable organomegaly. MUSCULOSKELETAL: No joint swelling or deformity. EXTREMITIES: No cyanosis, clubbing, or pedal edema. NEUROLOGICAL: Gross neurological examination did not reveal any focal deficits. SKIN: No rashes. Results CBC & Chem 7: 04/25/19 14:24 04/25/19 14:24 Labs: Abnormal Lab Results - Last 24 Hours (Table) 04/25/19 04/25/19 04/25/19 Range/Units 14:24 14:24 15:14 Lymphocytes # 0.8 L (1.0-4.8) k/uL BUN 19 H (7-17) mg/dL Glucose 245 H (74-99) mg/dL POC Glucose (mg/dL) (75-99) mg/dL Urine Glucose (UA) 3+ H (Negative) Urine Blood Small H (Negative) Ur Leukocyte Esterase Small H (Negative) Urine WBC 14 H (0-5) /hpf Urine Bacteria Rare H (None) /hpf Urine Mucus Rare H (None) /hpf 04/25/19 04/26/19 04/26/19 Range/Units 20:12 06:45 11:38 Lymphocytes # (1.0-4.8) k/uL BUN (7-17) mg/dL Glucose (74-99) mg/dL POC Glucose (mg/dL) 219 H 127 H 161 H (75-99) mg/dL Urine Glucose (UA) (Negative) Urine Blood (Negative) Ur Leukocyte Esterase (Negative) Urine WBC (0-5) /hpf Urine Bacteria (None) /hpf Urine Mucus (None) /hpf Microbiology - Last 24 Hours (Table) 04/25/19 15:14 Urine Culture - Preliminary Urine,Voided Thrombosis Risk Factor Assmnt - Choose All That Apply Any of the Below Risk Factors Present?: Yes Each Factor Represents 1 point: Obesity (BMI >25) Other Risk Factors: Yes Each Risk Factor Represents 3 Points: Age 75 years or older Thrombosis Risk Factor Assessment Total Risk Factor Score: 4 Thrombosis Risk Factor Assessment Level: Moderate Risk Assessment and Plan Plan: -Chest pain appears to be as atypical musculoskeletal related to degenerative neck disease continue with anti-intermittent medication and patient can use a GI prophylaxis. -Gastroesophageal reflux disease: Patient will be started on Protonix -Atrial fibrillation chronic presently rate controlled, not on anti-correlation probably because of fall risk. -Type 2 diabetes mellitus -Hypertension patient is actually hypotensive now. For above-mentioned chronic medical problems patient will be resumed and continued on appropriate home medications.
[2019-04-26] MEDS: PANTOPRAZOLE 40 MG/10 ML VIAL IVP SCH (16:39)
[2019-04-26 16:52] LABS: Glucose,Whole Blood 154 mg/dL (75-99)
[2019-04-26 20:06] LABS: Glucose,Whole Blood 158 mg/dL (75-99)
[2019-04-26] MEDS: FAMOTIDINE 20 MG TAB PO SCH (21:53)
[2019-04-27 06:42] LABS: Glucose,Whole Blood 130 mg/dL (75-99)
[2019-04-27 08:06] LABS: HCT 34.6 % (34.0-46.0); HGB 11.3 gm/dL (11.4-16.0); MCHC 32.8 g/dL (31.0-37.0); MCV 88.7 fL (80.0-100.0); Mean Platelet Volume 7.9; Platelet Count 209 k/uL (150-450); RBC 3.91 m/uL (3.80-5.40); WBC 8.8 k/uL (3.8-10.6)
[2019-04-27 08:21] LABS: Calcium 8.9 mg/dL (8.4-10.2); Potassium 4.2 mmol/L (3.5-5.1)
[2019-04-27] MEDS: INSULIN ASPART (NovoLOG) 100 UNIT/ML VIAL SQ SCH ×4 (09:29→21:55)
[2019-04-27] MEDS: MAGNESIUM OXIDE 400 MG TAB PO SCH ×2 (09:49→21:55)
[2019-04-27] MEDS: ASPIRIN 81 MG PO SCH (09:49)
[2019-04-27] MEDS: GABAPENTIN 300 MG CAP PO SCH ×2 (09:49→21:55)
[2019-04-27] MEDS: buPROPion XL 150 MG TAB.ER.24H PO SCH (09:49)
[2019-04-27] MEDS: PANTOPRAZOLE 40 MG/10 ML VIAL IVP SCH (09:49)
[2019-04-27] MEDS: METOPROLOL TARTRATE 12.5 MG TAB PO SCH ×2 (09:49→21:55)
[2019-04-27] MEDS: OXYBUTYNIN XL 5 MG TAB.ER.24 PO SCH (09:50)
[2019-04-27] MEDS: ISOSORBIDE MONONITRATE ER 60 MG TAB.ER.24H PO SCH (09:50)
[2019-04-27] MEDS: CYCLOBENZAPRINE 10 MG TAB PO SCH ×2 (09:50→21:55)
[2019-04-27] MEDS: INSULN ASP PRT/INSULIN ASPART 100 UNIT/ML 10 ML VIAL SQ SCH ×2 (09:50→21:56)
[2019-04-27 11:44] LABS: Glucose,Whole Blood 218 mg/dL (75-99)
--- NOTE | 2019-04-27 13:28 | P.DS ---
Providers Date of admission: 04/25/19 16:45 Attending physician: Arik Dalton MD Consults: 04/25/19 17:46 Consult Physician Routine Consulting Provider: Willy Alegria Consult Reason/Comments: CHF, chest pain Do you want consulting provider notified?: Yes Primary care physician: Ruthie Jacob [facility] Course: 78-year-old female legally blind came in with compensative chest pain appears to be muscular skeletal coming from the neck. Patient today is also comparing of epigastric burning sensation because the ibuprofen she is receiving patient chest pain is tingling numbness radiating to the left left shoulder as well as left the L arm area. Patient was evaluated by cardiology patient stated chest pain is moderate, nonpleuritic. Patient has and epigastric pain as well that is associated with food but the neck pain is not associated with food. Patient had 3 sets of cardiac enzymes to negative troponins are negative. Patient was on IV Lasix which probably is not necessary patient is not in heart failure exacerbation IV Lasix will be Discontinued and patient can resume her no oral Lasix patient has no evidence of pulmonary edema patient doesn't have any elevated JVD patient had normal ejection fraction was seen and valvular abnormalities. Patient blood pressure is low normal. Patient underwent stress test in 2017 which was not abnormal. Cardiology is not recommending any more further testing but the increased her isosorbide mononitrate and recommending monitoring for 1 more night. 04/27/2019 Patient is cleared from cardiology perspective will be discharged. Although patient is comparing of dysuria left any AV this abdominal patient will be discharged on 3 days of antibiotics for the UTI. Her serum creatinine went up a little bit because of which I'll repeat the basic metabolic profile in 3 days for results to be faxed to PCPs office PHYSICAL EXAMINATION: GENERAL: The patient is alert and oriented x3, not in any acute distress. Well developed, well nourished. HEENT: Pupils are round and equally reacting to light. EOMI. No scleral icterus. No conjunctival pallor. Normocephalic, atraumatic. No pharyngeal erythema. No thyromegaly. CARDIOVASCULAR: S1 and S2 present. No murmurs, rubs, or gallops. PULMONARY: Chest is clear to auscultation, no wheezing or crackles. ABDOMEN: Soft, nontender, nondistended, normoactive bowel sounds. No palpable organomegaly. MUSCULOSKELETAL: No joint swelling or deformity. EXTREMITIES: No cyanosis, clubbing, or pedal edema. NEUROLOGICAL: Gross neurological examination did not reveal any focal deficits. SKIN: No rashes. Assessment and Plan Plan: -Chest pain appears to be as atypical musculoskeletal related to degenerative neck disease continue with anti-intermittent medication and patient can use a GI prophylaxis. -Gastroesophageal reflux disease: -Atrial fibrillation chronic presently rate controlled, not on anti-coagulation probably because of fall risk. -Type 2 diabetes mellitus -Hypertension - Possible UTI UA pending Plan - Discharge Summary New Discharge Prescriptions: New Ibuprofen [Advil] 400 mg PO Q8HR PRN tab PRN Reason: Pain Isosorbide Mononitrate ER [Imdur] 60 mg PO QAM #30 tab.er.24h Continue Cyclobenzaprine [Flexeril] 10 mg PO BID Gabapentin [Neurontin] 300 mg PO BID metFORMIN HCL 1,000 mg PO BID Meclizine [Antivert] 12.5 mg PO Q6H PRN PRN Reason: Vertigo Famotidine [Pepcid] 20 mg PO HS buPROPion XL [Wellbutrin XL] 150 mg PO DAILY Metoprolol Tartrate [Lopressor] 12.5 mg PO BID Magnesium Oxide [Mag-Ox] 250 mg PO BID Insulin NPH Hum/Reg Insulin Hm [NovoLIN 70-30 100 UNIT/ML VIAL] 14 unit SQ BID Oxybutynin Xl [Ditropan XL] 5 mg PO DAILY Aspirin [Adult Low Dose Aspirin EC] 81 mg PO DAILY Discontinued Isosorbide Mononitrate [Isosorbide Mononitrate ER] 30 mg PO QAM Ibuprofen [Motrin] 600 mg PO Q8HR PRN PRN Reason: Pain Discharge Medication List Cyclobenzaprine [Flexeril] 10 mg PO BID 05/31/15 [History] Gabapentin [Neurontin] 300 mg PO BID 05/31/15 [History] metFORMIN HCL 1,000 mg PO BID 05/31/15 [History] Famotidine [Pepcid] 20 mg PO HS 09/06/16 [History] Meclizine [Antivert] 12.5 mg PO Q6H PRN 09/06/16 [History] Aspirin [Adult Low Dose Aspirin EC] 81 mg PO DAILY 04/25/19 [History] Insulin NPH Hum/Reg Insulin Hm [NovoLIN 70-30 100 UNIT/ML VIAL] 14 unit SQ BID 04/25/19 [History] Magnesium Oxide [Mag-Ox] 250 mg PO BID 04/25/19 [History] Metoprolol Tartrate [Lopressor] 12.5 mg PO BID 04/25/19 [History] Oxybutynin Xl [Ditropan XL] 5 mg PO DAILY 04/25/19 [History] buPROPion XL [Wellbutrin XL] 150 mg PO DAILY 04/25/19 [History] Ibuprofen [Advil] 400 mg PO Q8HR PRN tab 04/27/19 [Rx] Isosorbide Mononitrate ER [Imdur] 60 mg PO QAM #30 tab.er.24h 04/27/19 [Rx] Follow up Appointment(s)/Referral(s): Ruthie Jacob MD [Primary Care Provider] - 3 Days Ambulatory/Diagnostic Orders: Basic Metabolic Panel [LAB.AMB] Time Frame: 3 Days, Location: None Selected Discharge Disposition: HOME SELF-CARE
--- NOTE | 2019-04-27 13:28 | P.PN ---
Subjective This is a pleasant 78-year-old female past medicla history significant for hypertension, coronary artery disease, dyslipidemia, diabetes mellitus, atrial fibrillation and she is blind. She follows in the office with Dr. Alegria. Echocardiogram obtained reveals preserved LV systolic function with ejection fraction 55-60% moderate to severe mitral regurgitation and mild tricuspid regurgitation. Laboratory data reviewed, WBC 8.8, hemoglobin 11.3, platelets 209, sodium 141, potassium 4.2, creatinine 1.16. Blood pressure 113/74 heart ra te 63 afebrile maintaining oxygen saturation on room air. Currently maintained on aspirin 81 mg daily, Imdur 60 mg daily and metoprolol 12.5 mg twice a day. She is seen and examined sitting up eating lunch in no acute distress. She denies symptoms of chest discomfort, shortness of breath, dizziness or palpitations. She states overall she feels weak and fatigued. She also noticed this morning increased burning with urination and a foul smell to her urine. GENERAL: Well-appearing, well-nourished and in no acute distress. NECK: Supple without JVD or thyromegaly. LUNGS: Breath sounds clear to auscultation bilaterally. Respiration equal and unlabored. No wheezes, rales or rhonchi. HEART: Regular rate and rhythm with systolic ejection murmur at the apex, no rubs or gallops. S1 and S2 heard. EXTREMITIES: Normal range of motion, trace bilateral lower extremity nonpitting edema. No clubbing or cyanosis. Peripheral pulses intact. ASSESSMENT Chest pain, atypical. An acute coronary event has been ruled out. History of coronary artery disease Hypertension Dyslipidemia Diabetes mellitus Chronic persistent atrial fibrillation not on half-way anticoagulation secondary to increased risk of falls PLAN Stable from a cardiac perspective. follow up with Dr. Alegria in 2 weeks. Ongoing medical management of possible urinary tract infection per primary care team. Nurse Practitioner note has been reviewed, I agree with a documented findings and plan of care. Patient was seen and examined. Objective - Vital Signs Vital signs: Vital Signs Temp 98.1 F 04/27/19 12:00 Pulse 63 04/27/19 12:00 Resp 18 04/27/19 12:00 BP 113/74 04/27/19 12:00 Pulse Ox 98 04/27/19 12:00 Intake & Output 05/28/19 05/29/19 05/29/19 18:59 06:59 18:59 Intake Total 300 180 480 Balance 300 180 480 Weight 110.223 kg Intake: Oral 300 180 480 Other: Voiding Method Toilet Toilet Toilet Diaper Diaper Diaper # Voids 1 2 - Labs CBC & Chem 7: 04/27/19 07:39 04/27/19 07:39 Labs: Abnormal Lab Results - Last 24 Hours (Table) 04/26/19 04/26/19 04/27/19 Range/Units 16:49 20:04 06:37 Hgb (11.4-16.0) gm/dL Carbon Dioxide (22-30) mmol/L BUN (7-17) mg/dL Creatinine (0.52-1.04) mg/dL Glucose (74-99) mg/dL POC Glucose (mg/dL) 154 H 158 H 130 H (75-99) mg/dL 04/27/19 04/27/19 04/27/19 Range/Units 07:39 07:39 11:42 Hgb 11.3 L (11.4-16.0) gm/dL Carbon Dioxide 32 H (22-30) mmol/L BUN 27 H (7-17) mg/dL Creatinine 1.16 H (0.52-1.04) mg/dL Glucose 129 H (74-99) mg/dL POC Glucose (mg/dL) 218 H (75-99) mg/dL Microbiology - Last 24 Hours (Table) 04/25/19 15:14 Urine Culture - Final Urine,Voided
[2019-04-27 15:49] LABS: Glucose,Whole Blood 117 mg/dL (75-99)
[2019-04-27 15:58] LABS: Appearance,Urine Turbid (Clear); Bacteria,Urine Many /hpf; Bilirubin,Urine Negative (Negative); Blood,Urine Moderate (Negative); Color,Urine Yellow; Glucose,Urine (UA) Trace (Negative); Ketones,Urine Negative (Negative); Leukocyte Esterase,Urine Large (Negative); Mucus,Urine Occasional /hpf; Nitrite,Urine Positive (Negative); Protein,Urine 2+ (Negative); RBC,Urine 70 /hpf (0-5); Specific Gravity,Urine 1.028 (1.001-1.035); Squamous Epithelial Cell,Urine 1 /hpf (0-4); Urobilinogen,Urine <2.0 mg/dL (<2.0); WBC,Urine >182 /hpf (0-5)
[2019-04-27 16:30] LABS: Glucose,Whole Blood 135 mg/dL (75-99)
[2019-04-27 20:36] LABS: Glucose,Whole Blood 143 mg/dL (75-99)
[2019-04-28 07:11] LABS: Glucose,Whole Blood 99 mg/dL (75-99)
[2019-04-28] MEDS: INSULIN ASPART (NovoLOG) 100 UNIT/ML VIAL SQ SCH ×2 (07:20→12:17)
[2019-04-28] MEDS ORDERED: PANTOPRAZOLE 40 MG TABLET PO SCH (07:30)
[2019-04-28] MEDS: METOPROLOL TARTRATE 12.5 MG TAB PO SCH (09:12)
[2019-04-28] MEDS: MAGNESIUM OXIDE 400 MG TAB PO SCH (09:12)
[2019-04-28] MEDS: GABAPENTIN 300 MG CAP PO SCH (09:12)
[2019-04-28] MEDS: ASPIRIN 81 MG PO SCH (09:12)
[2019-04-28] MEDS: CYCLOBENZAPRINE 10 MG TAB PO SCH (09:12)
[2019-04-28] MEDS: INSULN ASP PRT/INSULIN ASPART 100 UNIT/ML 10 ML VIAL SQ SCH (09:13)
[2019-04-28] MEDS: buPROPion XL 150 MG TAB.ER.24H PO SCH (09:13)
[2019-04-28] MEDS: ISOSORBIDE MONONITRATE ER 60 MG TAB.ER.24H PO SCH (09:13)
[2019-04-28] MEDS: OXYBUTYNIN XL 5 MG TAB.ER.24 PO SCH (09:13)
[2019-04-28 12:02] LABS: Glucose,Whole Blood 92 mg/dL (75-99)
[2019-04-28 12:15] VITALS: BP 106/71; PULSE 66; RESP 14; TEMP 97.8
== END 2019-04-28 13:52 | disposition home or self-care (01) ==
LOC: EC 13:43 → 1SOBS 16:45
PROVIDERS: ADMIT Internal Medicine; ATTEND Internal Medicine
DX: R07.89 Other chest pain (principal); M25.512 Pain in left shoulder; R20.0 Anesthesia of skin; R53.1 Weakness; R20.2 Paresthesia of skin; R30.0 Dysuria; M50.30 Other cervical disc degeneration, unspecified cervical region; K21.9 Gastro-esophageal reflux disease without esophagitis; I48.2 Chronic atrial fibrillation; Z91.81 History of falling; I11.0 Hypertensive heart disease with heart failure; I50.9 Heart failure, unspecified; I95.9 Hypotension, unspecified; H54.8 Legal blindness, as defined in USA; T39.315A Adverse effect of propionic acid derivatives, initial encounter; H91.90 Unspecified hearing loss, unspecified ear; I25.10 Atherosclerotic heart disease of native coronary artery without angina pectoris; E78.5 Hyperlipidemia, unspecified; Z91.048 Other nonmedicinal substance allergy status; M19.90 Unspecified osteoarthritis, unspecified site; R32 Unspecified urinary incontinence; E11.319 Type 2 diabetes mellitus with unspecified diabetic retinopathy without macular edema; I25.2 Old myocardial infarction; F32.9 Major depressive disorder, single episode, unspecified; E66.9 Obesity, unspecified; Z68.41 Body mass index [BMI] 40.0-44.9, adult; Z88.0 Allergy status to penicillin; Z86.74 Personal history of sudden cardiac arrest; Z87.440 Personal history of urinary (tract) infections; Z90.49 Acquired absence of other specified parts of digestive tract; Z79.899 Other long term (current) drug therapy; Z79.82 Long term (current) use of aspirin; Z79.4 Long term (current) use of insulin; Z79.1 Long term (current) use of non-steroidal anti-inflammatories (NSAID); Z81.8 Family history of other mental and behavioral disorders; Z82.0 Family history of epilepsy and other diseases of the nervous system; Z80.0 Family history of malignant neoplasm of digestive organs
CPT/HCPCS: 96365; 96375 ×2; 96376 ×2; 99285; 36415; 93005; 93306; 97162; 83880; 80053; 80048; 83735; 84484 ×2; 85025; 85027; 85610; 85730; 81001 ×2; 87086; 71046; G0378 ×4; J1940 ×2; J0696 ×2; C9113 ×2

== ENCOUNTER 2019-08-22 15:01 | Observation (INO) | payer MEDICARE ==
[2019-08-22] MEDS ORDERED: SODIUM CHLORIDE 0.9% 500 ML 500 ML IV STA (15:14)
[2019-08-22] MEDS ORDERED: ACETAMINOPHEN TAB 325 MG TAB PO STA (15:20)
--- NOTE | 2019-08-22 15:20 | ED ---
General Adult HPI - General Chief complaint: Syncope Stated complaint: fall Time Seen by Provider: 08/22/19 15:01 Source: EMS, RN notes reviewed Mode of arrival: EMS Limitations: no limitations - History of Present Illness Initial comments: This is an 79-year-old female who presents emergency department after having had a syncopal episode. She states she was cold and wanted to go in the shower to get warm she took a shower and then she was trying to get out of the shower but she really she couldn't do it difficult for help and the next thing oh she woke up with EMS around. Patient states she doesn't know if she hit her head or hurt her neck but at this time she denies headache but does have some left-sided neck pain. Patient denies any chest pain palpitations difficulty breathing or shortness of breath per patient denies any recent fever chills per patient denies abdominal pain patient denies nausea vomiting diarrhea. Patient denies any dysuria hematuria urinary frequency. Patient states she does have swelling to legs but it's normal. Patient denies any extremity injury or injuries of the hip. Patient denies any back pain. - Related Data Home Medications Medication Instructions Recorded Confirmed Cyclobenzaprine [Flexeril] 10 mg PO HS 05/31/15 08/22/19 Gabapentin [Neurontin] 300 mg PO BID 05/31/15 08/22/19 metFORMIN HCL 1,000 mg PO BID 05/31/15 08/22/19 Aspirin [Adult Low Dose Aspirin EC] 81 mg PO DAILY 04/25/19 08/22/19 Insulin NPH Hum/Reg Insulin Hm 12 unit SQ BID 04/25/19 08/22/19 [NovoLIN 70-30 100 UNIT/ML VIAL] Magnesium Oxide [Mag-Ox] 250 mg PO DAILY 04/25/19 08/22/19 Metoprolol Tartrate [Lopressor] 12.5 mg PO BID 04/25/19 08/22/19 Furosemide [Lasix] 20 mg PO DAILY 08/22/19 08/22/19 Previous Rx's Medication Instructions Recorded Isosorbide Mononitrate ER [Imdur] 60 mg PO QAM #30 tab.er.24h 04/27/19 Allergies Allergy/AdvReac Type Severity Reaction Status Date / Time iodine Allergy Wheezing Verified 08/22/19 16:24 amoxicillin trihydrate AdvReac Nausea & Verified 08/22/19 16:24 [From Augmentin] Vomiting potassium clavulanate AdvReac Nausea & Verified 08/22/19 16:24 [From Augmentin] Vomiting Review of Systems ROS Statement: Those systems with pertinent positive or pertinent negative responses have been documented in the HPI. ROS Other: All systems not noted in ROS Statement are negative. Past Medical History Past Medical History: Atrial Fibrillation, Coronary Artery Disease (CAD), Chest Pain / Angina, Heart Failure, Diabetes Mellitus, Eye Disorder, GERD/Reflux, Hypertension, Neurologic Disorder, Osteoarthritis (OA), Syncope Additional Past Medical History / Comment(s): C/O "LT EYE ITCHING AND PUFFINESS"DIABETIC RETINOPATHY- HAD MULTIPLE LASER SX BUT ISLEGALLY BLIND, PASTCARDIAC ARREST-SON STATED PT HAD 2 HEART ATTACKS", NUMBNESS TO FINGERS , PAST FALL D/T SYNCOPE-BROKE LT ANKLE-WORE A BOOT. ANKLE SWELLING. "VERY SENSA TIVE TO BP MEDS", SEVERAL ABD HERNIAS, MULTIPLE UTI'S,HERNIATED DISC, PAST BROKEN ANKLE(LT), NUMBNESS LOWER FINGERS. PT HAS AN IDENTICAL TWIN SISTER THAT ALSO IS BLIND D/T RETINOPATHY History of Any Multi-Drug Resistant Organisms: None Reported Past Surgical History: Appendectomy, Cholecystectomy, Heart Catheterization, Hernia Repair Additional Past Surgical History / Comment(s): MULTIPLE EYE SURGERIES, LOOP RECORDER , COLONOSCOPY Past Anesthesia/Blood Transfusion Reactions: No Reported Reaction Past Psychological History: Depression Smoking Status: Never smoker Past Alcohol Use History: None Reported Past Drug Use History: None Reported - Past Family History Mother Family Medical History: No Reported History Additional Family Medical History / Comment(s): FROM COMPLICATIONS OF A SURGURY WHEN PT WAS 4 YEARS OLD. Father Family Medical History: Dementia Additional Family Medical History / Comment(s): AT AGE 88 FROM [place] Sister(s) Family Medical History: Hypertension, Myocardial Infarction ([place]) Additional Family Medical History / Comment(s): [place] General Exam - General Exam Comments Initial Comments: GENERAL: Patient is well-developed and well-nourished. Patient is nontoxic and well- hydrated and is in mild distress. ENT: Neck is soft and supple. No significant lymphadenopathy is noted. Oropharynx is clear. Moist mucous membranes. Neck has full range of motion without eliciting any pain. EYES: The sclera were anicteric and conjunctiva were pink and moist. Extraocular movements were intact and pupils were equal round and reactive to light. Eyelids were unremarkable. PULMONARY: Unlabored respirations. Good breath sounds bilaterally. No audible rales rhonchi or wheezing was noted. CARDIOVASCULAR: There is a regular rate and rhythm without any murmurs gallops or rubs. ABDOMEN: Soft and nontender with normal bowel sounds. No palpable organomegaly was noted. There is no palpable pulsatile mass. SKIN: Skin is clear with no lesions or rashes and otherwise unremarkable. NEUROLOGIC: Patient is alert and oriented x3. Cranial nerves II through XII are grossly intact. Motor and sensory are also intact. Normal speech, volume and content. Symmetrical smile. MUSCULOSKELETAL: Normal extremities with adequate strength and full range of motion. Scant edema bilaterally LYMPHATICS: No significant lymphadenopathy is noted PSYCHIATRIC: Normal psychiatric evaluation. Limitations: no limitations Course Vital Signs 08/22/19 15:03 Temperature 100.2 F H Pulse Rate 97 Respiratory 18 Rate Blood Pressure 177/81 O2 Sat by Pulse 100 Oximetry Medical Decision Making - Medical Decision Making EKG shows atrial fibrillation at 100 bpm QRS is 84 QT interval 362 QTC is 466 per patient's EKG shows no ST segment elevation or depression. Chest x-ray shows no acute abnormality. CT of the brain and C-spine showed no acute abnormality. - Lab Data Result diagrams: 08/22/19 15:37 08/22/19 15:37 Lab Results 08/22/19 08/22/19 08/22/19 Range/Units 15:37 15:37 15:37 WBC 14.5 H (3.8-10.6) k/uL RBC 4.80 (3.80-5.40) m/uL Hgb 13.9 (11.4-16.0) gm/dL Hct 42.5 (34.0-46.0) % MCV 88.5 (80.0-100.0) fL MCH 29.0 (25.0-35.0) pg MCHC 32.8 (31.0-37.0) g/dL RDW 14.2 (11.5-15.5) % Plt Count 209 (150-450) k/uL Neutrophils % 90 % Lymphocytes % 4 % Monocytes % 5 % Eosinophils % 1 % Basophils % 0 % Neutrophils # 13.1 H (1.3-7.7) k/uL Lymphocytes # 0.5 L (1.0-4.8) k/uL Monocytes # 0.7 (0-1.0) k/uL Eosinophils # 0.1 (0-0.7) k/uL Basophils # 0.0 (0-0.2) k/uL PT (9.0-12.0) sec INR (<1.2) APTT (22.0-30.0) sec Sodium 142 (137-145) mmol/L Potassium 3.6 (3.5-5.1) mmol/L Chloride 101 (98-107) mmol/L Carbon Dioxide 27 (22-30) mmol/L Anion Gap 14 mmol/L BUN 20 H (7-17) mg/dL Creatinine 0.97 (0.52-1.04) mg/dL Est GFR (CKD-EPI)AfAm 64 (>60 ml/min/1.73 sqM) Est GFR (CKD-EPI)NonAf 55 (>60 ml/min/1.73 sqM) Glucose 191 H (74-99) mg/dL Plasma Lactic Acid Clint 2.7 H* (0.7-2.0) mmol/L Calcium 9.8 (8.4-10.2) mg/dL Magnesium 1.7 (1.6-2.3) mg/dL Total Bilirubin 1.0 (0.2-1.3) mg/dL AST 30 (14-36) U/L ALT 30 (9-52) U/L Alkaline Phosphatase 111 (38-126) U/L Troponin I (0.000-0.034) ng/mL Total Protein 7.8 (6.3-8.2) g/dL Albumin 4.5 (3.5-5.0) g/dL Urine Color Urine Appearance (Clear) Urine pH (5.0-8.0) Ur Specific [place] (1.001-1.035) Urine Protein (Negative) Urine Glucose (UA) (Negative) Urine Ketones (Negative) Urine Blood (Negative) Urine Nitrite (Negative) Urine Bilirubin (Negative) Urine Urobilinogen (<2.0) mg/dL Ur Leukocyte Esterase (Negative) Urine RBC (0-5) /hpf Urine WBC (0-5) /hpf Ur Squamous Epith Cells (0-4) /hpf Urine Bacteria (None) /hpf Urine Mucus (None) /hpf 08/22/19 08/22/19 08/22/19 Range/Units 15:37 15:37 15:37 WBC (3.8-10.6) k/uL RBC (3.80-5.40) m/uL Hgb (11.4-16.0) gm/dL Hct (34.0-46.0) % MCV (80.0-100.0) fL MCH (25.0-35.0) pg MCHC (31.0-37.0) g/dL RDW (11.5-15.5) % Plt Count (150-450) k/uL Neutrophils % % Lymphocytes % % Monocytes % % Eosinophils % % Basophils % % Neutrophils # (1.3-7.7) k/uL Lymphocytes # (1.0-4.8) k/uL Monocytes # (0-1.0) k/uL Eosinophils # (0-0.7) k/uL Basophils # (0-0.2) k/uL PT 10.5 (9.0-12.0) sec INR 1.0 (<1.2) APTT 24.8 (22.0-30.0) sec Sodium (137-145) mmol/L Potassium (3.5-5.1) mmol/L Chloride (98-107) mmol/L Carbon Dioxide (22-30) mmol/L Anion Gap mmol/L BUN (7-17) mg/dL Creatinine (0.52-1.04) mg/dL Est GFR (CKD-EPI)AfAm (>60 ml/min/1.73 sqM) Est GFR (CKD-EPI)NonAf (>60 ml/min/1.73 sqM) Glucose (74-99) mg/dL Plasma Lactic Acid Clint (0.7-2.0) mmol/L Calcium (8.4-10.2) mg/dL Magnesium (1.6-2.3) mg/dL Total Bilirubin (0.2-1.3) mg/dL AST (14-36) U/L ALT (9-52) U/L Alkaline Phosphatase (38-126) U/L Troponin I <0.012 (0.000-0.034) ng/mL Total Protein (6.3-8.2) g/dL Albumin (3.5-5.0) g/dL Urine Color Yellow Urine Appearance Turbid H (Clear) Urine pH 7.0 (5.0-8.0) Ur Specific [place] 1.009 (1.001-1.035) Urine Protein Negative (Negative) Urine Glucose (UA) Negative (Negative) Urine Ketones Negative (Negative) Urine Blood Small H (Negative) Urine Nitrite Negative (Negative) Urine Bilirubin Negative (Negative) Urine Urobilinogen <2.0 (<2.0) mg/dL Ur Leukocyte Esterase Small H (Negative) Urine RBC 68 H (0-5) /hpf Urine WBC 5 (0-5) /hpf Ur Squamous Epith Cells 1 (0-4) /hpf Urine Bacteria Many H (None) /hpf Urine Mucus Rare H (None) /hpf Disposition Clinical Impression: Syncope, Fever Disposition: ADMITTED IP TO THIS [facility] Referrals: Ruthie Jacob MD [Primary Care Provider] - 1-2 days Time of Disposition: 16:57
[2019-08-22 15:57] LABS: Basophils % (A) 0 %; Eosinophils # (A) 0.1 k/uL (0-0.7); Eosinophils % (A) 1 %; HCT 42.5 % (34.0-46.0); HGB 13.9 gm/dL (11.4-16.0); Lymphocytes # (A) 0.5 k/uL (1.0-4.8); Lymphocytes % (A) 4 %; MCHC 32.8 g/dL (31.0-37.0); MCV 88.5 fL (80.0-100.0); Mean Platelet Volume 7.5; Monocytes # (A) 0.7 k/uL (0-1.0); Monocytes % (A) 5 %; Neutrophils # (A) 13.1 k/uL (1.3-7.7); Neutrophils % (A) 90 %; Platelet Count 209 k/uL (150-450); RDW 14.2 % (11.5-15.5); WBC 14.5 k/uL (3.8-10.6)
[2019-08-22 16:02] LABS: Partial Thromboplastin Time 24.8 sec (22.0-30.0); Prothrombin Time 10.5 sec (9.0-12.0)
[2019-08-22 16:04] LABS: Albumin 4.5 g/dL (3.5-5.0); Calcium 9.8 mg/dL (8.4-10.2); Magnesium 1.7 mg/dL (1.6-2.3); Potassium 3.6 mmol/L (3.5-5.1); Total Protein 7.8 g/dL (6.3-8.2)
--- NOTE | 2019-08-22 16:11 | CT ---
EXAMINATION TYPE: CT brain chencho bae DATE OF EXAM: 08/22/2019 COMPARISON: HISTORY: Syncopal episode today with injury, trauma and pain CT DLP: 1744.5 mGycm Automated exposure control for dose reduction was used. TECHNIQUE: CT scan of the head and cervical spine are performed without contrast. FINDINGS: There is no acute intracranial hemorrhage, mass effect, or midline shift identified. The ventricles and sulci are within normal limits in size. Periventricular white matter shows patchy low attenuation. Cortical atrophy is present. The globes are abnormal and atrophic, calcified, and the visualized sinuses are clear. Changes of hyperostosis from talus interna are noted along the calvariu m. Cervical spine is visualized in its entirety from C1 through upper thoracic levels and demonstrates s atisfactory alignment without evidence of acute fracture or dislocation. Prevertebral soft tissue ap pears within normal limits. The C1-C2 articulation is unremarkable. IMPRESSION: 1. There is no acute fracture or dislocation evident in the cervical spine. 2. No acute intracranial hemorrhage, mass effect, or midline shift is seen.
[2019-08-22 16:13] LABS: Appearance,Urine Turbid (Clear); Bacteria,Urine Many /hpf; Bilirubin,Urine Negative (Negative); Blood,Urine Small (Negative); Color,Urine Yellow; Glucose,Urine (UA) Negative (Negative); Ketones,Urine Negative (Negative); Leukocyte Esterase,Urine Small (Negative); Mucus,Urine Rare /hpf; Nitrite,Urine Negative (Negative); Protein,Urine Negative (Negative); RBC,Urine 68 /hpf (0-5); Specific Gravity,Urine 1.009 (1.001-1.035); Squamous Epithelial Cell,Urine 1 /hpf (0-4); Urobilinogen,Urine <2.0 mg/dL (<2.0); WBC,Urine 5 /hpf (0-5)
[2019-08-22] MEDS ORDERED: cefTRIAXone IN SWFI 1,000 MG/10 ML SYRINGE IVP STA (16:41)
--- NOTE | 2019-08-22 16:41 | XR ---
EXAMINATION TYPE: XR chest 2V DATE OF EXAM: 08/22/2019 COMPARISON: 04/25/2019 HISTORY: Fall and weakness TECHNIQUE: Frontal and lateral views of the chest are obtained. FINDINGS: There is no heart failure nor confluent pneumonic infiltrate. Heart size is normal. There are chest leads. Costophrenic angles are clear. There is minor spurring in the thoracic spine. IMPRESSION: No active cardiopulmonary disease. Normal heart. There is clearing of minimal interstiti al infiltrates compared to old exam.
[2019-08-22] MEDS ORDERED: NITROGLYCERIN SL TABS 0.4 MG TAB SUBLINGUAL PRN (16:57)
[2019-08-22 18:42] LABS: Glucose,Whole Blood 173 mg/dL (75-99)
--- NOTE | 2019-08-22 23:50 | P.HPIM ---
History of Present Illness H&P Date: 08/22/19 Chief Complaint: Syncope Ms. Aguilar is a 79 y/o female with the PMH of Atrial Fibrillation, Coronary Artery Disease, Angina, Heart Failure, Diabetes Mellitus, Eye Disorder, TIANNA D/Reflux, Hypertension, Neurologic Disorder, Osteoarthritis (OA), Syncope, Blindness and hearing loss coming in with the c/o Syncope.Patient is very hard of hearing and she is legally blind. She states that she was having chills at home and felt cold, so took a hot shower. When she was coming out of the hot shower she felt dizzy and fell to the ground. Her family members brought her to the hospital via EMS. She states that the last thing she remembers is falling in the shower and later she woke up, when EMS people were around. Patient denies having any headaches or any injuries. She has mild left-sided neck pain. Patient denies having any chest pain or palpitations. No difficulty in breathing. Patient denies having any nausea vomiting or diarrhea. The only thing she says that was different is that she had increased frequency of urination. She denies having any hematuria or dysuria. Patient denies having any runny nose, sore throat or no sick contacts.During the entire conversation with the patient, her son. Patient lives with her another son who went outside to get a sandwich. At the time of admission patient had a temperature of 100.2, heart rate of 97 and she was saturating at 100% on room air. As a part of work-up for her fever she had a chest x-ray that was within normal limits and a urinalysis showing small blood, small leukocyte esterase and many bacteria. She also had a white count of 14.5 and a lactic acid of 2.7. Patient received a dose of ceftriaxone in the ED after getting blood cultures. Review of Systems REVIEW OF SYSTEMS: PSYCH:no Anxiety or depression NEURO:No c/o weakness of the extremties, No facial droop, No speech abnormalities. VASCULAR: Peripheral nervous system within the normal limits no edema HEMATOLOGIC: No history of easy bleeding and bruising . No recent infections . RESPIRATORY: No cough, No SOB, No chest discomfort. IMMUNE: No recurrent infections INTEGUMENT: no rashes OPHTHALMOLOGIC: No blurry vision and no eye discharge : No dysuria or hematuria CARDIAC: No chest pain , shortness of breath , paroxysmal nocturnal dyspnea MUSCULOSKELETAL : Chronic low back pain GI: No abdominal pain, Nausea or vomiting. No constipation or diarrhea. All 13 review of systems done and negative except for the ones mentioned above. Past Medical History Past Medical History: Atrial Fibrillation, Coronary Artery Disease (CAD), Chest Pain / Angina, Heart Failure, Diabetes Mellitus, Eye Disorder, GERD/Reflux, Hypertension, Neurologic Disorder, Osteoarthritis (OA), Syncope Additional Past Medical History / Comment(s): C/O "LT EYE ITCHING AND PUFFINESS"DIABETIC RETINOPATHY- HAD MULTIPLE LASER SX BUT ISLEGALLY BLIND, PASTCARDIAC ARREST-SON STATED PT HAD 2 HEART ATTACKS", NUMBNESS TO FINGERS , PAST FALL D/T SYNCOPE-BROKE LT ANKLE-WORE A BOOT. ANKLE SWELLING. "VERY SENSATIVE TO BP MEDS", SEVERAL ABD HERNIAS, MULTIPLE UTI'S,HERNIATED DISC, PAST BROKEN ANKLE(LT), NUMBNESS LOWER FINGERS. PT HAS AN IDENTICAL TWIN SISTER THAT ALSO IS BLIND D/T RETINOPATHY History of Any Multi-Drug Resistant Organisms: None Reported Past Surgical History: Appendectomy, Cholecystectomy, Heart Catheterization, Hernia Repair Additional Past Surgical History / Comment(s): MULTIPLE EYE SURGERIES, LOOP RECORDER , COLONOSCOPY Past Anesthesia/Blood Transfusion Reactions: No Reported Reaction Past Psychological History: Depression Smoking Status: Never smoker Past Alcohol Use History: None Reported Past Drug Use History: None Reported - Past Family History Mother Family Medical History: No Reported History Additional Family Medical History / Comment(s): FROM COMPLICATIONS OF A SURGURY WHEN PT WAS 4 YEARS OLD. Father Family Medical History: Dementia Additional Family Medical History / Comment(s): AT AGE 88 FROM [place] Sister(s) Family Medical History: Hypertension, Myocardial Infarction (CT) Additional Family Medical History / Comment(s): COLON CA Medications and Allergies Home Medications Medication Instructions Recorded Confirmed Type Cyclobenzaprine [Flexeril] 10 mg PO HS 05/31/15 08/22/19 History Gabapentin [Neurontin] 300 mg PO BID 05/31/15 08/22/19 History metFORMIN HCL 1,000 mg PO BID 05/31/15 08/22/19 History Aspirin [Adult Low Dose Aspirin EC] 81 mg PO DAILY 04/25/19 08/22/19 History Insulin NPH Hum/Reg Insulin Hm 12 unit SQ BID 04/25/19 08/22/19 History [NovoLIN 70-30 100 UNIT/ML VIAL] Magnesium Oxide [Mag-Ox] 250 mg PO DAILY 04/25/19 08/22/19 History Metoprolol Tartrate [Lopressor] 12.5 mg PO BID 04/25/19 08/22/19 History Isosorbide Mononitrate ER [Imdur] 60 mg PO QAM #30 tab.er.24h 04/27/19 08/22/19 Rx Furosemide [Lasix] 20 mg PO DAILY 08/22/19 08/22/19 History Allergies Allergy/AdvReac Type Severity Reaction Status Date / Time iodine Allergy Wheezing Verified 08/22/19 16:24 amoxicillin trihydrate AdvReac Nausea & Verified 08/22/19 16:24 [From Augmentin] Vomiting potassium clavulanate AdvReac Nausea & Verified 08/22/19 16:24 [From Augmentin] Vomiting Physical Exam Vitals: Vital Signs Temp Pulse Resp BP Pulse Ox 08/22/19 19:22 98.8 F 95 18 146/90 100 08/22/19 18:30 96 18 153/78 100 08/22/19 18:00 90 20 135/69 100 08/22/19 17:30 79 20 135/72 08/22/19 17:13 99.2 F 87 16 135/72 99 08/22/19 17:00 93 20 141/80 91 L 08/22/19 16:30 145/84 08/22/19 16:00 92 18 177/81 94 L 08/22/19 15:30 177/81 08/22/19 15:03 100.2 F H 97 18 177/81 95 Intake and Output 08/22/19 08/22/19 08/22/19 06:59 14:59 22:59 Other: Weight 105.324 kg GEN. APPEARANCE: alert, in no apparent distress, obese HEAD EXAM: atraumatic, normocephalic, normal inspection EYE EXAM: pupils are white in color in both eyes ENT EXAM: moist mucus membranes NECK EXAM: short webbed neck RESPIRATORY EXAM: normal lung sounds bilaterally. Few coarse breath sounds in bilateral lower lung green CARDIOVASCULAR EXAM: regular rate, normal rhythm, normal heart sounds. GI/ABDOMINAL EXAM: soft, normal bowel sounds. Ventral hernia. Thick abdominal wall. No suprapubic tenderness. EXTREMITIES EXAM: no pedal edema, but very tender to touch all over her legs. No leg swelling or redness. She states that she has diabetic neuropathy. NEUROLOGICAL EXAM: alert, oriented X3, No focal deficits PSYCHIATRIC EXAM: normal affect, normal mood SKIN EXAM: warm, dry, intact, normal color. Absent: rash Results CBC & Chem 7: 08/22/19 15:37 08/22/19 15:37 Labs: Abnormal Lab Results - Last 24 Hours (Table) 08/22/19 08/22/19 08/22/19 Range/Units 15:37 15:37 15:37 WBC 14.5 H (3.8-10.6) k/uL Neutrophils # 13.1 H (1.3-7.7) k/uL Lymphocytes # 0.5 L (1.0-4.8) k/uL BUN 20 H (7-17) mg/dL Glucose 191 H (74-99) mg/dL POC Glucose (mg/dL) (75-99) mg/dL Plasma Lactic Acid Clint 2.7 H* (0.7-2.0) mmol/L Urine Appearance (Clear) Urine Blood (Negative) Ur Leukocyte Esterase (Negative) Urine RBC (0-5) /hpf Urine Bacteria (None) /hpf Urine Mucus (None) /hpf 08/22/19 08/22/19 Range/Units 15:37 18:40 WBC (3.8-10.6) k/uL Neutrophils # (1.3-7.7) k/uL Lymphocytes # (1.0-4.8) k/uL BUN (7-17) mg/dL Glucose (74-99) mg/dL POC Glucose (mg/dL) 173 H (75-99) mg/dL Plasma Lactic Acid Clint (0.7-2.0) mmol/L Urine Appearance Turbid H (Clear) Urine Blood Small H (Negative) Ur Leukocyte Esterase Small H (Negative) Urine RBC 68 H (0-5) /hpf Urine Bacteria Many H (None) /hpf Urine Mucus Rare H (None) /hpf Assessment and Plan Assessment: ASSESSMENT Syncope Sepsis-source probably UTI History of coronary disease Type 2 diabetes mellitus Hypertension Osteoarthritis -multiple joints Legally blind in both eyes Hearing Obesity with BMI of 38.6 PLAN: The patient had a syncopal episode when getting out after taking a hot s hower, could be secondary to hypotension due to her UTI. Patient received a dose of ceftriaxone in the ED. Blood cultures and urine cultures pending. Patient also received IV fluids in the ED. Patient's repeat lactic acid has come down from 2.7-1.7 after IV fluids and ceftriaxone.Will hold off on the patient's Lasix. Continue with the rest of her medication regimen. The treatment plan was discussed in detail with the patient and her son at bedside. Further recommendations to follow depending on the progress of the patient.
[2019-08-23] MEDS: METOPROLOL TARTRATE 25 MG TAB PO SCH ×2 (00:35→09:59)
[2019-08-23 04:01] LABS: Calcium 8.9 mg/dL (8.4-10.2); Cholesterol 155 mg/dL (<200); HDL Cholesterol 62 mg/dL (40-60); LDL Cholesterol,Calculated 81 mg/dL (0-99); Potassium 3.7 mmol/L (3.5-5.1); Triglycerides 62 mg/dL (<150)
[2019-08-23 04:06] LABS: Anisocytosis Slight; Basophils % (A) 0 %; Eosinophils # (A) 0.1 k/uL (0-0.7); Eosinophils % (A) 1 %; HCT 35.9 % (34.0-46.0); Lymphocytes # (A) 1.3 k/uL (1.0-4.8); Lymphocytes % (A) 11 %; MCH 29.4 pg (25.0-35.0); MCHC 33.4 g/dL (31.0-37.0); Mean Platelet Volume 7.6; Monocytes # (A) 0.6 k/uL (0-1.0); Monocytes % (A) 5 %; Neutrophils # (A) 9.8 k/uL (1.3-7.7); Neutrophils % (A) 82 %; Platelet Count 193 k/uL (150-450); RBC 4.08 m/uL (3.80-5.40); RDW 16.1 % (11.5-15.5)
[2019-08-23 07:30] LABS: Glucose,Whole Blood 183 mg/dL (75-99)
[2019-08-23] MEDS ORDERED: ASPIRIN 325 MG TAB PO SCH (09:00)
[2019-08-23] MEDS ORDERED: ENOXAPARIN 40 MG/0.4 ML SYRINGE SQ SCH (09:00)
[2019-08-23] MEDS ORDERED: NON FORMULARY DRUG (Magnesium Oxide 250 MG) PO SCH (09:00)
[2019-08-23] MEDS ORDERED: NON FORMULARY DRUG (Aspirin [Adult Low Dose Aspirin Ec] 81 MG) PO SCH (09:00)
[2019-08-23] MEDS ORDERED: INSULN ASP PRT/INSULIN ASPART 100 UNIT/ML 10 ML VIAL SQ SCH (09:00)
[2019-08-23] MEDS: GABAPENTIN 300 MG CAP PO SCH (09:59)
[2019-08-23 10:08] LABS: Glucose,Whole Blood 186 mg/dL (75-99)
[2019-08-23 13:00] VITALS: BP 108/54; PULSE 67; RESP 18; TEMP 98
--- NOTE | 2019-08-23 15:03 | P.DS ---
Providers Date of admission: 08/22/19 16:57 Attending physician: Krista Askew Primary care physician: Ruthie Jacob [facility] Course: 79-year-old pleasant female was admitted secondary to syncope. Patient is legally blind is probably responsible for most of falls. Patient was extensively evaluated in the past for syncope. Patient had an echocardiogram in the past which did not show any significant abnormality was believed headrest syncope secondary to hypotension which was again attributed to urinary tract infection patient received the Rocephin with significant improvement in her symptoms of fever. Patient will be discharged on 5 more days of Ceftin. PHYSICAL EXAMINATION: GENERAL: The patient is alert and oriented x3, not in any acute distress. Well developed, well nourished. HEENT: Patient is legally blind No scleral icterus. No conjunctival pallor. Normocephalic, atraumatic. No pharyngeal erythema. No thyromegaly. CARDIOVASCULAR: S1 and S2 present. No murmurs, rubs, or gallops. PULMONARY: Chest is clear to auscultation, no wheezing or crackles. ABDOMEN: Soft, nontender, nondistended, normoactive bowel sounds. No palpable organomegaly. MUSCULOSKELETAL: No joint swelling or deformity. EXTREMITIES: No cyanosis, clubbing, or pedal edema. NEUROLOGICAL: Gross neurological examination did not reveal any focal deficits. SKIN: No rashes. Please refer to documentation from Dr. Askew from yesterday for further details Plan - Discharge Summary New Discharge Prescriptions: New Cefuroxime Axetil [Ceftin] 500 mg PO BID 5 Days #10 tab Continue Cyclobenzaprine [Flexeril] 10 mg PO HS Gabapentin [Neurontin] 300 mg PO BID metFORMIN HCL 1,000 mg PO BID Metoprolol Tartrate [Lopressor] 12.5 mg PO BID Magnesium Oxide [Mag-Ox] 250 mg PO DAILY Insulin NPH Hum/Reg Insulin Hm [NovoLIN 70-30 100 UNIT/ML VIAL] 12 unit SQ BID Aspirin [Adult Low Dose Aspirin EC] 81 mg PO DAILY Isosorbide Mononitrate ER [Imdur] 60 mg PO QAM #30 tab.er.24h Discontinued Furosemide [Lasix] 20 mg PO DAILY Discharge Medication List Cyclobenzaprine [Flexeril] 10 mg PO HS 05/31/15 [History] Gabapentin [Neurontin] 300 mg PO BID 07/02/15 [History] metFORMIN HCL 1,000 mg PO BID 05/31/15 [History] Aspirin [Adult Low Dose Aspirin EC] 81 mg PO DAILY 04/25/19 [History] Insulin NPH Hum/Reg Insulin Hm [NovoLIN 70-30 100 UNIT/ML VIAL] 12 unit SQ BID 04/25/19 [History] Magnesium Oxide [Mag-Ox] 250 mg PO DAILY 04/25/19 [History] Metoprolol Tartrate [Lopressor] 12.5 mg PO BID 04/25/19 [History] Isosorbide Mononitrate ER [Imdur] 60 mg PO QAM #30 tab.er.24h 04/27/19 [Rx] Cefuroxime Axetil [Ceftin] 500 mg PO BID 5 Days #10 tab 08/23/19 [Rx] Follow up Appointment(s)/Referral(s): Willy Alegria MD [STAFF PHYSICIAN] - 1 Week Ruthie Jacob MD [Primary Care Provider] - 3 Days Patient Instructions/Handouts: Cefuroxime (By mouth), Urinary Tract Infection in Women (DC), Syncope (DC) Discharge Disposition: HOME SELF-CARE
== END 2019-08-23 12:55 | disposition home or self-care (01) ==
LOC: EC 15:01 → 1SOBS 16:57 → UNDODISOB 08-23 13:00
PROVIDERS: ADMIT Internal Medicine; ATTEND Internal Medicine
DX: R55 Syncope and collapse (principal); Z91.81 History of falling; H54.8 Legal blindness, as defined in USA; I48.91 Unspecified atrial fibrillation; I11.0 Hypertensive heart disease with heart failure; I25.10 Atherosclerotic heart disease of native coronary artery without angina pectoris; I50.9 Heart failure, unspecified; E11.9 Type 2 diabetes mellitus without complications; K21.9 Gastro-esophageal reflux disease without esophagitis; M19.90 Unspecified osteoarthritis, unspecified site; M54.2 Cervicalgia; I25.2 Old myocardial infarction; E11.319 Type 2 diabetes mellitus with unspecified diabetic retinopathy without macular edema; R20.0 Anesthesia of skin; Z90.49 Acquired absence of other specified parts of digestive tract; F32.9 Major depressive disorder, single episode, unspecified; E66.9 Obesity, unspecified; Z68.38 Body mass index [BMI] 38.0-38.9, adult; N39.0 Urinary tract infection, site not specified; A41.9 Sepsis, unspecified organism; H91.90 Unspecified hearing loss, unspecified ear; Z86.74 Personal history of sudden cardiac arrest; Z87.440 Personal history of urinary (tract) infections; W18.2XXA Fall in (into) shower or empty bathtub, initial encounter; Y93.E1 Activity, personal bathing and showering; Y92.002 Bathroom of unspecified non-institutional (private) residence as the place of occurrence of the external cause; Z79.899 Other long term (current) drug therapy; Z79.82 Long term (current) use of aspirin; Z79.4 Long term (current) use of insulin; Z88.0 Allergy status to penicillin; Z91.048 Other nonmedicinal substance allergy status; Z81.8 Family history of other mental and behavioral disorders; Z82.0 Family history of epilepsy and other diseases of the nervous system; Z82.49 Family history of ischemic heart disease and other diseases of the circulatory system; Z80.0 Family history of malignant neoplasm of digestive organs; Z82.1 Family history of blindness and visual loss
CPT/HCPCS: 96361; 96372; 96374; 99285; 36415; 93005 ×2; 80061; 80053; 80048; 83605; 83735; 84484 ×2; 85025 ×2; 85610; 85730; 81001; 87040; 87086; 87077; 87186; 71046; 72125; 70450; G0378 ×2; J1650; J0696

== ENCOUNTER → 2019-12-21 | Outpatient (CLI) | payer MEDICARE ==
[2019-12-21 10:16] VITALS: BP 134/61; PULSE 80; RESP 18; TEMP 97.7
--- NOTE | 2019-12-21 11:46 | P.HPOB ---
History of Present Illness H&P Date: 12/21/19 Chief Complaint: The patient is here for her routine gynecologic exam. This is an 79-year-old with an LMP of 1990. The patient is here to establish with this office. She states it is been about 15 years since her last pelvic exam. Two of the patient's children, Toney and Kristy, are here with her. The patient lives with these 2 children. The patient had a urine test done at her primary care physician's office about 3 weeks ago and blood was noted in the urine. Because of this the decision to insert a tampon into the vagina was made in order to determine if there was any vaginal bleeding causing the blood in the urine. There was a pinpoint spot of blood at the tip of the tampon. The patient states the tampon insertion was uncomfortable. The patient states she also had an episode where she passed out about 2 months ago and she had fallen and was hospitalized for a day. After that, she states she has had some low body numbness and doesn't feel quite right. She briefly had some low abdominal discomfort which did resolve after she fell. The patient and her 2 children deny any vaginal bleeding other than the blood noted on the tampon that was inserted. They deny any blood on bed sheets or clothing. She has never taken HRT. Review of Systems Her weight can fluctuate by plus or -10 pounds. Respiratory: Occasional shortness of breath. She denies cardiac or GI problems. She denies maltreatment. She has occasionally fallen when she loses her balance and this has been more frequent since becoming blind. : She has had some issues with urinary leakage especially in the morning after getting out of bed. Past Medical History Past Medical History: Atrial Fibrillation, Coronary Artery Disease (CAD), Chest Pain / Angina, Heart Failure, Diabetes Mellitus, Eye Disorder, GERD/Reflux, Hypertension, Myocardial Infarction (NM), Neurologic Disorder, Osteoarthritis (OA), Syncope Additional Past Medical History / Comment(s): DIABETIC RETINOPATHY- HAD MULTIPLE LASER SX BUT ISLEGALLY BLIND, 2 MIs, ANKLE SWELLING. SEVERAL ABD HERNIAS, MULTIPLE UTI'S,HERNIATED DISC. Type 2 diabetes requiring insulin. 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 History of Any Multi-Drug Resistant Organisms: None Reported Past Surgical History: Appendectomy, Cholecystectomy, Heart Catheterization, Hernia Repair Additional Past Surgical History / Comment(s): MULTIPLE EYE SURGERIES, LOOP RECORDER , COLONOSCOPY 2009, ABDOMINAL HERNIA SURGERY. Past Anesthesia/Blood Transfusion Reactions: No Reported Reaction Past Psychological History: Depression Additional Psychological History / Comment(s): PT'S SON LIVES WITH HER .BETWEEN SON AND DAUGHTER THEY CARE FOR PT. PT USES A CANE INSIDE HOME AND WALKER WHEN OUTSIDE. PAST FALLS. NO OTHER OUTSIDE SERVICES RECIEVED. HAS BERTA READER,GLUCOSE MONITOR, CANE/WALKER. BARS ON BED AND IN BATHROOM. Smoking Status: Former smoker Past Alcohol Use History: None Reported Additional Past Alcohol Use History / Comment(s): Smoked only for 2 years in her late 20s. Past Drug Use History: None Reported Additional History: She is and is now seeing anybody at this time and is not sexually active. She lives with her son and daughter who care for her. - Past Family History Mother Family Medical History: No Reported History Additional Family Medical History / Comment(s): FROM COMPLICATIONS OF A SURGURY WHEN PT WAS 4 YEARS OLD. Father Family Medical History: Dementia Additional Family Medical History / Comment(s): AT AGE 88 FROM [place] Sister(s) Family Medical History: Diabetes Mellitus, Hypertension, Myocardial Infarction (NM) Additional Family Medical History / Comment(s): Breast cancer. Her niece also had breast cancer. Another sister had lung cancer. Brother(s) Family Medical History: Dementia Son(s) Family Medical History: Diabetes Mellitus Daughter(s) Family Medical History: Diabetes Mellitus Medications and Allergies Home Medications Medication Instructions Recorded Confirmed Type Cyclobenzaprine [Flexeril] 10 mg PO HS 05/31/15 12/21/19 History Gabapentin [Neurontin] 300 mg PO BID 05/31/15 12/21/19 History metFORMIN HCL 1,000 mg PO BID 05/31/15 12/21/19 History Aspirin [Adult Low Dose Aspirin EC] 325 mg PO DAILY 04/25/19 12/21/19 History Insulin NPH Hum/Reg Insulin Hm 12 unit SQ BID 04/25/19 12/21/19 History [NovoLIN 70-30 100 UNIT/ML VIAL] Magnesium Oxide [Mag-Ox] 250 mg PO DAILY 04/25/19 12/21/19 History Metoprolol Tartrate [Lopressor] 12.5 mg PO BID 04/25/19 12/21/19 History Isosorbide Mononitrate ER [Imdur] 30 mg PO QAM 12/21/19 12/21/19 History Allergies Allergy/AdvReac Type Severity Reaction Status Date / Time iodine Allergy Wheezing Verified 12/21/19 10:09 amoxicillin trihydrate AdvReac Nausea & Verified 12/21/19 10:09 [From Augmentin] Vomiting potassium clavulanate AdvReac Nausea & Verified 12/21/19 10:09 [From Augmentin] Vomiting Exam Vital Signs Temp Pulse Resp BP Pulse Ox 12/21/19 10:11 97.7 F 80 18 134/61 99 Intake and Output 12/20/19 12/21/19 12/21/19 22:59 06:59 14:59 Other: Weight 105.233 kg Height 5 feet 3 inches, weight 232 pounds, BMI 41.1. This is a well-developed well-nourished obese white female who is alert and oriented times 3 in no acute distress. HEENT: She is blind. Otherwise within normal limits. NECK: Supple without mass or thyromegaly. CHEST AND LUNGS: Clear to auscultation. HEART: Regular rate and rhythm. BREASTS: Are without mass or discharge. AXILLARY EXAM: Negative for adenopathy. BACK: Negative for CVA tenderness. ABDOMEN: Soft, obese, nontender, with a large abdominal hernias in the upper abdomen measuring approximately 15 cm in the right upper quadrant and 10 cm and the left upper quadrant. These are nontender and soft. PELVIC EXAM: Normal external genitalia with mild atrophy. Cervix and vagina appear normal mild atrophy. There is no unusual discharge. There is no evidence of blood. There is no evidence of prolapse. The uterus is midposition, nongravid size and nontender. There are no palpable adnexal masses or tenderne ss. Bimanual examination is somewhat limited secondary to her size. RECTAL EXAM: Rectovaginal exam is negative for mass or tenderness and is negative for occult blood. EXTREMITIES: Nontender. IMPRESSION: 1. 79-year-old menopausal female with normal gynecologic exam. 2. Small blood noted on tampon after it was inserted by her primary care physician's office after blood was noted on urinalysis 3 weeks ago. The patient and her caregivers deny any other vaginal bleeding on clothing or bed sheets. Differential diagnosis will include minor vaginal trauma with tampon insertion, and less likely uterine bleeding. 3. Multiple medical problems. PLAN: 1. Pap smear was performed. 2. Self breast awareness was discussed with the patient. 3. Mammograms have been done on a regular basis according to the patient and her last one was done at [facility] within the past year. She will have these done through her primary care physician. 4. The patient will be scheduled for pelvic ultrasound. The order slip was given to the patient for this. If endometrial thickness is normal, we will probably proceed with observation for any additional vaginal bleeding. If thickened endometrium, we will plan on doing some type of endometrial sampling. 5. She does not get flu shots in the fall. 6. The patient was advised to return in 1-2 years for her well woman examination and as needed.
--- NOTE | 2019-12-27 16:45 | P.PN ---
Progress Note - Text Progress Note Date: 12/27/19 OUTPATIENT FOLLOW-UP NOTE TEST(S)/RESULTS: Pap smear done on 12/21/2019 was negative. There was a note stating there was a shift in the vaginal marcelo suggestive of bacterial vaginosis. METHOD OF NOTIFICATION: The patient was notified by phone. PATIENT COMMENTS: The patient states she has been noticing a vaginal odor. She is scheduled for her pelvic ultrasound tomorrow. DIAGNOSIS: Negative Pap smear. Bacterial vaginosis. DISCUSSION: PLAN: Metronidazole 500 mg by mouth twice a day 7 days. The electronic prescription will be sent to [facility] pharmacy in [place]. Pelvic ultrasound is scheduled for 12/28/2019.
== END ==
LOC: WWCWWP 09:52
PROVIDERS: ATTEND Obstetrics & Gynecology
DX: Z53.9 Procedure and treatment not carried out, unspecified reason (principal)

== ENCOUNTER → 2019-12-21 | Outpatient (CLI) | payer SELFPAY ==
[2019-12-21 16:17] LABS: African American GFR (CKD) 40.7 (60.0-200.0); Anion Gap 10.9 mmol/L (4.00-12.00); BUN/Creat Ratio 30.71 Ratio (12.00-20.00); Calcium 9.4 mg/dL (8.7-10.3); Carbon Dioxide 33.1 mmol/L (21.6-31.8); Non-African American GFR(CKD) 35.1 (60.0-200.0); Potassium 3.8 mmol/L (3.5-5.5)
== END | disposition home or self-care (01) ==
LOC: LABWHC1 11:25
PROVIDERS: ATTEND Nurse Practitioner Adult Health
DX: I10 Essential (primary) hypertension (principal)
CPT/HCPCS: 36415; 80048; 83735

== ENCOUNTER → 2019-12-28 | Outpatient (CLI) | payer SELFPAY ==
--- NOTE | 2019-12-29 08:57 | US ---
EXAMINATION TYPE: US pelvis complete transvag DATE OF EXAM: 12/28/2019 COMPARISON: NONE CLINICAL HISTORY: N95.0 Small PMB. small PMB TECHNIQUE: Transvaginal (TV) and Transabdominal (TA) . Transabdominal sonographic images of the pel vis were acquired. 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 Uterus: Retroverted Multiple peripheral echogenic foci visualized 2. Endometrium: wnl 3. Right Ovary: Obscured by overlying bowel gas 4. Left Ovary: Obscured by overlying bowel gas 5. Bilateral Adnexa: no free fluid 6. Posterior cul-de-sac: no free fluid IMPRESSION: 1. Endometrial atrophy. Endometrial thickness measures 1 mm. 2. Innumerable punctate uterine myometrial calcifications, typically a benign finding that may relate to prior involuted leiomyomas. 3. Obscuration of the bilateral ovaries by overlying bowel gas.
--- NOTE | 2020-01-03 17:30 | P.PN ---
Progress Note - Text Progress Note Date: 01/03/20 OUTPATIENT FOLLOW-UP NOTE TEST(S)/RESULTS: Pelvic ultrasound on 12/28/2019 shows a very thin endometrial thickness of 1 mm. Also some benign-appearing findings suggestive of prior involuted leiomyomas. METHOD OF NOTIFICATION: A she was notified by phone. PATIENT COMMENTS: DIAGNOSIS: Benign appearing pelvic ultrasound with thin endometrial thickness following minimal vaginal blood after a tampon was inserted to determine if there was vaginal bleeding. The patient denies any vaginal bleeding other than what was seen on the tampon. DISCUSSION: The patient was reassured with this finding that there is no evidence of endometrial hyperplasia or endometrial malignancy. PLAN: The patient will follow up with her primary care physician, Dr. Jacob, for her ongoing medical care. She can return as needed.
== END | disposition home or self-care (01) ==
LOC: RADUSWWP 16:25
PROVIDERS: ATTEND Obstetrics & Gynecology
DX: N85.8 Other specified noninflammatory disorders of uterus (principal)
CPT/HCPCS: 76830; 76856

== ENCOUNTER 2021-06-20 18:50 | Inpatient (IN) | payer MEDICARE ==
[2021-06-20] MEDS ORDERED: HEPARIN SODIUM 1,000 UN/ML (10ML VL) IV PRN (19:54)
[2021-06-20] MEDS ORDERED: HEPARIN SODIUM 1,000 UN/ML (10ML VL) IV ONE (19:54)
[2021-06-20] MEDS ORDERED: HEPARIN SOD,PORK IN 0.45% NACL 25,000 UNIT in 0.45% NACL 1 250ML.BAG IV SCH (20:00)
--- NOTE | 2021-06-20 20:38 | ED ---
General Adult HPI - General Chief complaint: Chest Pain Stated complaint: NSTEMI Source: patient, EMS Mode of arrival: EMS Limitations: physical limitation - History of Present Illness Initial comments: Patient is an 80-year-old female past history of A. fib, coronary artery dise ase, diabetes who presents emergency department as a transfer from [facility]. Patient went into their facility after having generalized weakness for the past several days. Her Bath's notes she has had some chest pain, shortness of breath, nausea without vomiting and abdominal discomfort over the past couple of days. Reports that yesterday she began having significant gum pain for which her family gave her nitro and she did have some improvement in her pain. States that she does not have any chest discomfort today. At their facility the patient had a complete workup and was found have a troponin of 25. Acute ST segment elevation. She sees Dr. Santos therefore was transported to our facility for further evaluation. She states her last cardiac catheterization was greater than 20 years ago. She denies any shortness of breath. No other alleviating, precipitating or modifying factors - Related Data Home Medications Medication Instructions Recorded Confirmed Cyclobenzaprine [Flexeril] 10 mg PO HS 05/31/15 12/21/19 Gabapentin [Neurontin] 300 mg PO BID 05/31/15 12/21/19 metFORMIN HCL [Glucophage] 1,000 mg PO BID 05/31/15 12/21/19 Aspirin [Adult Low Dose Aspirin EC] 325 mg PO DAILY 04/25/19 12/21/19 Insulin NPH Hum/Reg Insulin Hm 12 unit SQ BID 04/25/19 12/21/19 [NovoLIN 70-30 100 UNIT/ML VIAL] Magnesium Oxide [Mag-Ox] 250 mg PO DAILY 04/25/19 12/21/19 Metoprolol Tartrate [Lopressor] 12.5 mg PO BID 04/25/19 12/21/19 Isosorbide Mononitrate ER [Imdur] 30 mg PO QAM 12/21/19 12/21/19 Previous Rx's Medication Instructions Recorded metroNIDAZOLE [Flagyl] 500 mg PO BID 7 Days #14 tab 12/27/19 Allergies Allergy/AdvReac Type Severity Reaction Status Date / Time iodine Allergy Wheezing Verified 12/21/19 10:09 amoxicillin trihydrate AdvReac Nausea & Verified 12/21/19 10:09 [From Augmentin] Vomiting potassium clavulanate AdvReac Nausea & Verified 12/21/19 10:09 [From Augmentin] Vomiting Review of Systems ROS Statement: Those systems with pertinent positive or pertinent negative responses have been documented in the HPI. ROS Other: All systems not noted in ROS Statement are negative. Past Medical History Past Medical History: Atrial Fibrillation, Coronary Artery Disease (CAD), Chest Pain / Angina, Heart Failure, Diabetes Mellitus, Eye Disorder, GERD/Reflux, Hypertension, Neurologic Disorder, Osteoarthritis (OA), Syncope Additional Past Medical History / Comment(s): C/O "LT EYE ITCHING AND PUFFINESS"DIABETIC RETINOPATHY- HAD MULTIPLE LASER SX BUT ISLEGALLY BLIND, PASTCARDIAC ARREST-SON STATED PT HAD 2 HEART ATTACKS", NUMBNESS TO FINGERS , PAST FALL D/T SYNCOPE-BROKE LT ANKLE-WORE A BOOT. ANKLE SWELLING. "VERY SENSATIVE TO BP MEDS", SEVERAL ABD HERNIAS, MULTIPLE UTI'S,HERNIATED DISC, PAST BROKEN ANKLE(LT), NUMBNESS LOWER FINGERS. PT HAS AN IDENTICAL TWIN SISTER THAT ALSO IS BLIND D/T RETINOPATHY History of Any Multi-Drug Resistant Organisms: None Reported Past Surgical History: Appendectomy, Cholecystectomy, Heart Catheterization, Hernia Repair Additional Past Surgical History / Comment(s): MULTIPLE EYE SURGERIES, LOOP RECORDER , COLONOSCOPY Past Anesthesia/Blood Transfusion Reactions: No Reported Reaction Past Psychological History: Depression Additional Psychological History / Comment(s): PT'S SON LIVES WITH HER .BETWEEN SON AND DAUGHTER THEY CARE FOR PT. PT USES A CANE INSIDE HOME AND WALKER WHEN OUTSIDE. PAST FALLS. NO OTHER OUTSIDE SERVICES RECIEVED. HAS BERTA READER,GLUCOSE MONITOR, CANE/WALKER. BARS ON BED AND IN BATHROOM. Past Alcohol Use History: None Reported Past Drug Use History: None Reported - Past Family History Mother Family Medical History: No Reported History Additional Family Medical History / Comment(s): FROM COMPLICATIONS OF A SURGURY WHEN PT WAS 4 YEARS OLD. Father Family Medical History: Dementia Additional Family Medical History / Comment(s): AT AGE 88 FROM [place] Brother(s) Family Medical History: Dementia Son(s) Family Medical History: Diabetes Mellitus Daughter(s) Family Medical History: Diabetes Mellitus Sister(s) Family Medical History: Diabetes Mellitus, Hypertension, Myocardial Infarction ([place]) Additional Family Medical History / Comment(s): Breast cancer. Her niece also had breast cancer. Another sister had lung cancer. General Exam Limitations: physical limitation Course Vital Signs 06/20/21 19:36 Temperature 98.8 F Pulse Rate 69 Respiratory 18 Rate Blood Pressure 99/68 O2 Sat by Pulse 99 Oximetry - Reevaluation(s) Reevaluation #1: 06/20/21 22:[address] Varner. He is requesting EKG in the morning. Patient will be made nothing by mouth after midnight. Heparin is continued. He would also like the patient to get her home medications of Imdur and Lopressor. He would also like the patient on 75 mL of normal saline per hour 06/20/21 22:12 EKG Findings - EKG Comments: EKG Findings:: EKG demonstrates A. fib with a rate of 73. QRS 90. QTC of 363. Mild ST elevation in lead 3. Inverted T-wave 1 and aVL. No change from the patient's previous EKGs Medical Decision Making - Medical Decision Making Upon arrival the patient was placed into room 23. A thorough history and physical exam is performed. She was given a full dose aspirin and started on heparin. Upon arrival we did repeat an EKG which continues to show the same m orphology as [facility]. Repeat laboratory studies were performed. Troponin is 21.7. Patient is continued on heparin drip. She has no active chest pain. Patient will be admitted to [facility]. She remains symptom free and is awaiting a bed on the floor - Lab Data Result diagrams: 06/20/21 20:10 06/20/21 20:10 Lab Results 06/20/21 06/20/21 06/20/21 Range/Units 20:10 20:10 20:10 WBC 10.6 (3.8-10.6) k/uL RBC 3.53 L (3.80-5.40) m/uL Hgb 10.8 L (11.4-16.0) gm/dL Hct 32.1 L (34.0-46.0) % MCV 91.0 (80.0-100.0) fL MCH 30.5 (25.0-35.0) pg MCHC 33.5 (31.0-37.0) g/dL RDW 12.8 (11.5-15.5) % Plt Count 178 (150-450) k/uL MPV 8.4 Neutrophils % 76 % Lymphocytes % 11 % Monocytes % 10 % Eosinophils % 1 % Basophils % 0 % Neutrophils # 8.1 H (1.3-7.7) k/uL Lymphocytes # 1.2 (1.0-4.8) k/uL Monocytes # 1.0 (0-1.0) k/uL Eosinophils # 0.1 (0-0.7) k/uL Basophils # 0.0 (0-0.2) k/uL PT 10.9 (9.0-12.0) sec INR 1.0 (<1.2) APTT 30.5 H (22.0-30.0) sec Sodium 135 L (137-145) mmol/L Potassium 3.7 (3.5-5.1) mmol/L Chloride 97 L (98-107) mmol/L Carbon Dioxide 35 H (22-30) mmol/L Anion Gap 3 mmol/L BUN 30 H (7-17) mg/dL Creatinine 1.06 H (0.52-1.04) mg/dL Est GFR (CKD-EPI)AfAm 57 (>60 ml/min/1.73 sqM) Est GFR (CKD-EPI)NonAf 49 (>60 ml/min/1.73 sqM) Glucose 163 H (74-99) mg/dL Calcium 8.8 (8.4-10.2) mg/dL Total Bilirubin 0.5 (0.2-1.3) mg/dL AST 85 H (14-36) U/L ALT 18 (4-34) U/L Alkaline Phosphatase 74 (38-126) U/L Troponin I (0.000-0.034) ng/mL Total Protein 6.1 L (6.3-8.2) g/dL Albumin 3.4 L (3.5-5.0) g/dL 06/20/21 Range/Units 20:10 WBC (3.8-10.6) k/uL RBC (3.80-5.40) m/uL Hgb (11.4-16.0) gm/dL Hct (34.0-46.0) % MCV (80.0-100.0) fL MCH (25.0-35.0) pg MCHC (31.0-37.0) g/dL RDW (11.5-15.5) % Plt Count (150-450) k/uL MPV Neutrophils % % Lymphocytes % % Monocytes % % Eosinophils % % Basophils % % Neutrophils # (1.3-7.7) k/uL Lymphocytes # (1.0-4.8) k/uL Monocytes # (0-1.0) k/uL Eosinophils # (0-0.7) k/uL Basophils # (0-0.2) k/uL PT (9.0-12.0) sec INR (<1.2) APTT (22.0-30.0) sec Sodium (137-145) mmol/L Potassium (3.5-5.1) mmol/L Chloride (98-107) mmol/L Carbon Dioxide (22-30) mmol/L Anion Gap mmol/L BUN (7-17) mg/dL Creatinine (0.52-1.04) mg/dL Est GFR (CKD-EPI)AfAm (>60 ml/min/1.73 sqM) Est GFR (CKD-EPI)NonAf (>60 ml/min/1.73 sqM) Glucose (74-99) mg/dL Calcium (8.4-10.2) mg/dL Total Bilirubin (0.2-1.3) mg/dL AST (14-36) U/L ALT (4-34) U/L Alkaline Phosphatase (38-126) U/L Troponin I 21.700 H* (0.000-0.034) ng/mL Total Protein (6.3-8.2) g/dL Albumin (3.5-5.0) g/dL Disposition Clinical Impression: Acute non-ST elevation myocardial infarction (NSTEMI), Chest pain Disposition: ADMITTED IP TO THIS [facility] Condition: Serious Is patient prescribed a controlled substance at d/c from ED?: No Decision to Admit Reason: Admit from EC Decision Date: 06/20/21 Decision Time: 20:39
[2021-06-20] MEDS ORDERED: NALOXONE 0.4 MG/ML 1 ML VIAL IV PRN (20:39)
[2021-06-20 20:48] LABS: Basophils % (A) 0 %; Eosinophils # (A) 0.1 k/uL (0-0.7); Eosinophils % (A) 1 %; HCT 32.1 % (34.0-46.0); HGB 10.8 gm/dL (11.4-16.0); Lymphocytes # (A) 1.2 k/uL (1.0-4.8); Lymphocytes % (A) 11 %; MCH 30.5 pg (25.0-35.0); MCHC 33.5 g/dL (31.0-37.0); Mean Platelet Volume 8.4; Monocytes % (A) 10 %; Neutrophils # (A) 8.1 k/uL (1.3-7.7); Neutrophils % (A) 76 %; Platelet Count 178 k/uL (150-450); RBC 3.53 m/uL (3.80-5.40); RDW 12.8 % (11.5-15.5); WBC 10.6 k/uL (3.8-10.6)
[2021-06-20 20:54] LABS: Partial Thromboplastin Time 30.5 sec (22.0-30.0); Prothrombin Time 10.9 sec (9.0-12.0)
[2021-06-20 20:57] LABS: Albumin 3.4 g/dL (3.5-5.0); Potassium 3.7 mmol/L (3.5-5.1); Total Protein 6.1 g/dL (6.3-8.2)
[2021-06-20 20:58] LABS: Calcium 8.8 mg/dL (8.4-10.2); Total Bilirubin 0.5 mg/dL (0.2-1.3)
[2021-06-20] MEDS ORDERED: SODIUM CHLORIDE 0.9% 1,000 ML IV SCH (22:15)
[2021-06-21 04:15] LABS: Calcium 8.8 mg/dL (8.4-10.2); Potassium 3.9 mmol/L (3.5-5.1)
--- NOTE | 2021-06-21 10:00 | ECHOF ---
Referral Reason:co MEASUREMENTS -------- HEIGHT: 162.6 cm WEIGHT: 98.9 kg BP: 108/57 RVIDd: 3.5 cm (< 3.3) IVSd: 1.1 cm (0.6 - 1.1) LVIDd: 4.1 cm (3.9 - 5.3) LVPWd: 1.3 cm (0.6 - 1.1) IVSs: 2.0 cm LVIDs: 2.7 cm LVPWs: 1.6 cm LA Diam: 3.9 cm (2.7 - 3.8) LAESV Index (A-L): 36.79 ml/m Ao Diam: 3.3 cm (2.0 - 3.7) AV Cusp: 1.4 cm (1.5 - 2.6) MV EXCURSION: 18.742 mm (> 18.000) MV EF SLOPE: 154 mm/s (70 - 150) EPSS: 0.6 cm AR PHT: 854 ms RAP: 15.00 mmHg RVSP: 52.90 mmHg FINDINGS -------- Atrial fibrillation. This was a technically adequate study. The left ventricular size is normal. There is mild concentric left ventricular hypertrophy. Overa ll left ventricular systolic function is mild-moderately impaired with, an EF between 40 - 45 %. The right ventricle is mildly enlarged. LA is moderately dilated 34-39 ml/m2 The right atrium is normal in size. Interatrial and interventricular septum intact. There is mild aortic valve sclerosis. There is mild aortic regurgitation. Mild mitral annular calcification present. Fpod-ue-bunqzpou mitral regurgitation is present. Mild tricuspid regurgitation present. There is moderate pulmonary hypertension. The right ventric ular systolic pressure, as measured by Doppler, is 52.90mmHg. Trace/mild (physiologic) pulmonic regurgitation. The aortic root size is normal. The inferior vena cava is dilated with no significant inspiratory collapse which is consistent estima isaias right atrial pressure of >15 mmHg. There is no pericardial effusion. CONCLUSIONS -------- 1. The left ventricular size is normal. 2. There is mild concentric left ventricular hypertrophy. 3. Overall left ventricular systolic function is mild-moderately impaired with, an EF between 40 - 45 %. 4. The right ventricle is mildly enlarged. 5. LA is moderately dilated 34-39 ml/m2 6. There is mild aortic valve sclerosis. 7. There is mild aortic regurgitation. 8. Mild mitral annular calcification present. 9. Exox-gj-zxqsruuj mitral regurgitation is present. 10. Mild tricuspid regurgitation present. 11. There is moderate pulmonary hypertension. 12. The right ventricular systolic pressure, as measured by Doppler, is 52.90mmHg. 13. Trace/mild (physiologic) pulmonic regurgitation. 14. The inferior vena cava is dilated with no significant inspiratory collapse which is consistent es timated right atrial pressure of >15 mmHg. 15. There is no pericardial effusion. FORDER OPERATOR: Deyanira Frederick RDCS
[2021-06-21] MEDS ORDERED: ASPIRIN 325 MG TAB PO STA (10:01)
[2021-06-21] MEDS ORDERED: ALPRAZolam 0.25 MG TAB PO PRN (10:01)
[2021-06-21] MEDS ORDERED: ALPRAZolam 0.5 MG TAB PO PRN (10:01)
[2021-06-21] MEDS ORDERED: SODIUM CHLORIDE 0.9% 1,000 ML in EMPTY BAG 1 BAG IV ONE (10:01)
[2021-06-21] MEDS ORDERED: ATORVASTATIN 80 MG TAB PO STA (10:01)
[2021-06-21] MEDS ORDERED: NITROGLYCERIN SL TABS 0.4 MG TAB SUBLINGUAL PRN ×2 (10:01→12:59)
--- NOTE | 2021-06-21 11:00 | CONS ---
CONSULTATION HISTORY OF PRESENT ILLNESS: Mrs. Aguilar is an 80-year-old female who is followed by Dr. Alegria, was transferred to [facility] from [facility] because of symptoms of fatigue, weakness and dyspnea and nausea and some abdominal pain. She had vague discomfort in the chest, although is not very clear. In the emergency room, she was noted to have initial troponin that was elevated at 21.7. The patient has been under stress with the of her twin sister about a year ago. She has underwent cardiac catheterization in 1999 and had an obstructive disease in the LAD. Her left ventricular systolic function in the past was normal. She has no recent change in her breathing. She has no dizziness or palpitation. No syncope. Her coronary risk factors are remarkable for history of hypertension, diabetes and hyperlipidemia. She is a non smoker. She had a chest x-ray yesterday. She has some peripheral edema in the past related to cellulitis that improved. MEDICATION: His medications at home included: Insulin, metformin 1 gram twice a day, metoprolol tartrate 12.5 mg twice a day, isosorbide mononitrate 30 mg daily, gabapentin, aspirin. REVIEW OF SYSTEMS: RESPIRATORY system: She has some dyspnea on exertion. No recent wheezing or cough. GI system: No recent GI bleeding. She had the diarrhea and the nausea. No vomiting. system: No dysuria or hematuria. Nervous system: No stroke or seizure. PHYSICAL EXAMINATION: She is an 80-year-old female, alert, oriented, no apparent distress, legally blind. Blood pressure 132/70 with a heart rate in 70s. HEAD: Normocephalic. Eyes sclerae anicteric. NECK: Good carotid upstroke. No bruit. No jugular venous distention. LUNGS: Clear to auscultation. HEART: Irregularly irregular S1, S2. No S3, with systolic murmur at the base and a systolic murmur. No diastolic murmur. No rub. ABDOMEN: Soft and nontender. EXTREMITIES: No edema. LAB DATA: EKG revealed atrial fibrillation with QS in the inferior leads and nonspecific ST- segment changes. Lab data initial troponin of 21, subsequently 16, then 15. BUN creatinine 31 and 0.06. Potassium 3.9. Hemoglobin of 10.8. IMPRESSION: 1. Myocardial infarction could be inferior wall. I do not have a recent evaluation of her systolic function. 2. History of coronary artery disease by cardiac catheterization in 1999. 3. History of hypertension. 4. Hyperlipidemia. 5. Diabetes mellitus. 6. History of being legally blind. RECOMMENDATIONS: In view of the findings, I recommend proceeding with angiography to assess her status and guide her treatment. The rationale behind the procedures risks and the complications were discussed with the patient who is in full understanding and agreement. The procedure will be done by Dr. Alegria. Thank you for this consult. We will follow with you. MMODL / IJN: [id number] /
[2021-06-21] MEDS ORDERED: IV FLUID CONTINUATION 1,000 ML IV ONE (11:30)
--- NOTE | 2021-06-21 11:37 | P.HPIM ---
History of Present Illness This is a pleasant 80-year-old female with the legal blindness came in with some vague nonspecific symptoms of for generalized weakness back pain and nausea denied any significant chest pain and an episode of diaphoresis SYMPTOMS has been going patient didn't feel something is not right in the hospital found to have elevated troponin of 21 patient was started on IV heparin. Patient had an EKG which showed ST depressions in inferolateral leads. Patient had a cardiac catheterization 1999 which showed obstructive disease in left anterior descending. Her left radical systolic function at the time was within normal limits. Patient had a repeat echocardiogram today which showed decreased EF of around 40-45% without any wall motion abnormalities, RVSP of around 50 for consistent with moderate pulmonary hypertension and dilated inferior vena cava 15 cm consistent with congestive heart failure exacerbation, IV fluids will be discontinued patient will undergo cardiac catheterization because of which I'm not starting her on Lasix patient will eventually need Lasix. Metformin will be held REVIEW OF SYSTEMS: CONSTITUTIONAL: As mentioned in HPI HEENT: No recent visual problems or hearing problems. Denied any sore throat. CARDIOVASCULAR: No chest pain, orthopnea, PND, no palpitations, no syncope. PULMONARY: No shortness of breath, no cough, no hemoptysis. GASTROINTESTINAL: No diarrhea, no nausea, no vomiting, no abdominal pain. NEUROLOGICAL: No headaches, no weakness, no numbness. HEMATOLOGICAL: Denies any bleeding or petechiae. GENITOURINARY: Denies any burning micturition, frequency, or urgency. MUSCULOSKELETAL/RHEUMATOLOGICAL: Denies any joint pain, swelling, or any muscle pain. ENDOCRINE: Denies any polyuria or polydipsia. The rest of the 14-point review of systems is negative. PHYSICAL EXAMINATION: GENERAL: The patient is alert and oriented x3, not in any acute distress. Well developed, well nourished. HEENT: Patient is legally blind with opacified cornea No scleral icterus. No conjunctival pallor. Normocephalic, atraumatic. No pharyngeal erythema. No thyromegaly. CARDIOVASCULAR: S1 and S2 present. No murmurs, rubs, or gallops. PULMONARY: Good air entry into bilateral lung green admitted mild bibasilar crackles ABDOMEN: Soft, nontender, nondistended, normoactive bowel sounds. No palpable organomegaly. MUSCULOSKELETAL: No joint swelling or deformity. EXTREMITIES: No cyanosis, clubbing, or pedal edema. NEUROLOGICAL: Gross neurological examination did not reveal any focal deficits. SKIN: No rashes. Assessment and plan -Acute non-ST elevation myocardial infarction: Patient will undergo cardiac catheterization patient is presently on IV heparin which will be continued -Congestive heart failure probably acute systolic dysfunction from him acute myocardial infarction with the volume overload and acute exacerbation this can you IV fluids patient may need to IV Lasix -Hypertension -Hyperlipidemia Hypertension type 2 diabetes mellitus: Discontinue 70/30 patient will be started on Lantus or Levemir at nighttime 8 units this can you metformin patient was started on sliding scale insulin. - diabetic peripheral neuropathy DVT prophylaxis: Patient on IV heparin at this time Past Medical History Past Medical History: Atrial Fibrillation, Coronary Artery Disease (CAD), Chest Pain / Angina, Heart Failure, Diabetes Mellitus, Eye Disorder, GERD/Reflux, Hypertension, Neurologic Disorder, Osteoarthritis (OA), Syncope Additional Past Medical History / Comment(s): C/O "LT EYE ITCHING AND PUFFINESS"DIABETIC RETINOPATHY- HAD MULTIPLE LASER SX BUT ISLEGALLY BLIND, PASTCARDIAC ARREST-SON STATED PT HAD 2 HEART ATTACKS", NUMBNESS TO FINGERS , PAST FALL D/T SYNCOPE-BROKE LT ANKLE-WORE A BOOT. ANKLE SWELLING. "VERY SENSATIVE TO BP MEDS", SEVERAL ABD HERNIAS, MULTIPLE UTI'S,HERNIATED DISC, PAST BROKEN ANKLE(LT), NUMBNESS LOWER FINGERS. PT HAS AN IDENTICAL TWIN SISTER THAT ALSO IS BLIND D/T RETINOPATHY History of Any Multi-Drug Resistant Organisms: None Reported Past Surgical History: Appendectomy, Cholecystectomy, Heart Catheterization, Hernia Repair Additional Past Surgical History / Comment(s): MULTIPLE EYE SURGERIES, LOOP RECORDER , COLONOSCOPY Past Anesthesia/Blood Transfusion Reactions: No Reported Reaction Past Psychological History: Depression Additional Psychological History / Comment(s): PT'S SON LIVES WITH HER .BETWEEN SON AND DAUGHTER THEY CARE FOR PT. PT USES A CANE INSIDE HOME AND WALKER WHEN OUTSIDE. PAST FALLS. NO OTHER OUTSIDE SERVICES RECIEVED. HAS BERTA READER,GLUCOSE MONITOR, CANE/WALKER. BARS ON BED AND IN BATHROOM. Smoking Status: Heavy tobacco smoker Past Alcohol Use History: None Reported Past Drug Use History: None Reported - Past Family History Mother Family Medical History: No Reported History Additional Family Medical History / Comment(s): FROM COMPLICATIONS OF A SURGURY WHEN PT WAS 4 YEARS OLD. Father Family Medical History: Dementia Additional Family Medical History / Comment(s): AT AGE 88 FROM [place] Brother(s) Family Medical History: Dementia Son(s) Family Medical History: Diabetes Mellitus Daughter(s) Family Medical History: Diabetes Mellitus Sister(s) Family Medical History: Diabetes Mellitus, Hypertension, Myocardial Infarction ([place]) Additional Family Medical History / Comment(s): Breast cancer. Her niece also had breast cancer. Another sister had lung cancer. Medications and Allergies Home Medications Medication Instructions Recorded Confirmed Type Gabapentin [Neurontin] 300 mg PO BID 05/31/15 06/20/21 History metFORMIN HCL [Glucophage] 1,000 mg PO BID 05/31/15 06/20/21 History Aspirin [Adult Low Dose Aspirin EC] 325 mg PO DAILY 04/25/19 06/20/21 History Metoprolol Tartrate [Lopressor] 12.5 mg PO BID 04/25/19 06/20/21 History Isosorbide Mononitrate ER [Imdur] 30 mg PO QAM 12/21/19 06/20/21 History Oxybutynin Xl [Ditropan XL] 5 mg PO DAILY 06/20/21 06/20/21 History Insulin NPH Hum/Reg Insulin Hm 7 unit SQ BID-W/MEALS 06/21/21 06/21/21 History [NovoLIN 70-30 100 UNIT/ML VIAL] Allergies Allergy/AdvReac Type Severity Reaction Status Date / Time iodine Allergy Wheezing Verified 12/21/19 10:09 amoxicillin trihydrate AdvReac Nausea & Verified 12/21/19 10:09 [From Augmentin] Vomiting potassium clavulanate AdvReac Nausea & Verified 12/21/19 10:09 [From Augmentin] Vomiting vancomycin AdvReac Unknown Verified 06/20/21 22:28 Physical Exam Vitals: Vital Signs Temp Pulse Pulse Resp BP BP Pulse Ox 06/21/21 08:00 98.5 F 77 16 132/77 100 06/21/21 07:45 98.0 F 89 16 112/62 99 06/21/21 06:00 68 14 108/57 98 06/21/21 05:00 70 18 111/64 100 06/21/21 04:00 65 18 102/53 100 06/21/21 01:59 74 18 103/68 98 06/20/21 22:22 79 06/20/21 22:00 79 18 115/58 97 06/20/21 21:00 75 18 108/72 99 06/20/21 20:00 65 18 106/63 98 06/20/21 19:36 98.8 F 69 18 99/68 99 Intake and Output 06/20/21 06/21/21 06/21/21 22:59 06:59 14:59 Intake Total 81.142 Balance 81.142 Intake: Intake, IV Titration 81.142 Amount Heparin Sod,Pork in 0.45% 81.142 NaCl 25,000 unit In 0.45 % NaCl 1 250ml.bag @ 10. 11 UNITS/KG/HR 9.997 mls/ hr IV .Q24H [facility] Rx#: [id number] Other: Weight 98.883 kg 98.883 kg Results CBC & Chem 7: 06/20/21 20:10 06/21/21 03:20 Labs: Abnormal Lab Results - Last 24 Hours (Table) 06/20/21 06/20/21 06/20/21 Range/Units 20:10 20:10 20:10 RBC 3.53 L (3.80-5.40) m/uL Hgb 10.8 L (11.4-16.0) gm/dL Hct 32.1 L (34.0-46.0) % Neutrophils # 8.1 H (1.3-7.7) k/uL APTT 30.5 H (22.0-30.0) sec Sodium 135 L (137-145) mmol/L Chloride 97 L (98-107) mmol/L Carbon Dioxide 35 H (22-30) mmol/L BUN 30 H (7-17) mg/dL Creatinine 1.06 H (0.52-1.04) mg/dL Glucose 163 H (74-99) mg/dL AST 85 H (14-36) U/L Troponin I (0.000-0.034) ng/mL Total Protein 6.1 L (6.3-8.2) g/dL Albumin 3.4 L (3.5-5.0) g/dL 06/20/21 06/21/21 06/21/21 Range/Units 20:10 01:17 03:20 RBC (3.80-5.40) m/uL Hgb (11.4-16.0) gm/dL Hct (34.0-46.0) % Neutrophils # (1.3-7.7) k/uL APTT (22.0-30.0) sec Sodium 135 L (137-145) mmol/L Chloride (98-107) mmol/L Carbon Dioxide 32 H (22-30) mmol/L BUN 30 H (7-17) mg/dL Creatinine 1.06 H (0.52-1.04) mg/dL Glucose 346 H (74-99) mg/dL AST (14-36) U/L Troponin I 21.700 H* 16.100 H* (0.000-0.034) ng/mL Total Protein (6.3-8.2) g/dL Albumin (3.5-5.0) g/dL 06/21/21 06/21/21 06/21/21 Range/Units 03:20 04:40 09:54 RBC (3.80-5.40) m/uL Hgb (11.4-16.0) gm/dL Hct (34.0-46.0) % Neutrophils # (1.3-7.7) k/uL APTT 37.0 H 58.0 H (22.0-30.0) sec Sodium (137-145) mmol/L Chloride (98-107) mmol/L Carbon Dioxide (22-30) mmol/L BUN (7-17) mg/dL Creatinine (0.52-1.04) mg/dL Glucose (74-99) mg/dL AST (14-36) U/L Troponin I 15.400 H* (0.000-0.034) ng/mL Total Protein (6.3-8.2) g/dL Albumin (3.5-5.0) g/dL Thrombosis Risk Factor Assmnt - Choose All That Apply Each Risk Factor Represents 3 Points: Age 75 years or older Thrombosis Risk Factor Assessment Total Risk Factor Score: 3 Thrombosis Risk Factor Assessment Level: Moderate Risk
[2021-06-21] MEDS ORDERED: methylPREDNISolone SOD SUCCI 125 MG/2 ML VIAL IV ONE (11:42)
[2021-06-21] MEDS ORDERED: LIDOCAINE 1% INJ 10MG/ML (20 ML MDV) SQ ONE (12:10)
[2021-06-21] MEDS: MIDAZOLAM 2 MG/2 ML VIAL IV ONE ×2 (12:10→12:16)
[2021-06-21] MEDS ORDERED: VERAPAMIL SYRINGE (5 MG/10 ML) INTRAARTER ONE (12:11)
[2021-06-21] MEDS ORDERED: HEPARIN SODIUM 1,000 UN/ML (10ML VL) IV ONE (12:15)
[2021-06-21] MEDS ORDERED: NITROGLYCERIN 1000MCG/10ML SYRINGE INTRACORON ONE (12:33)
[2021-06-21] MEDS ORDERED: niCARdipine Syringe (1,000 mcg/10 mL) INTRACORON ONE (12:41)
[2021-06-21] MEDS ORDERED: IOPAMIDOL-370 100ML BTL INJ ONE (12:44)
[2021-06-21] MEDS ORDERED: CLOPIDOGREL 75 MG TAB PO ONE (12:44)
[2021-06-21] MEDS ORDERED: ZOLPIDEM 5 MG TAB PO PRN (12:59)
[2021-06-21] MEDS ORDERED: ATROPINE SULFATE 0.1 MG/ML 10ML SYRINGE IV PRN (12:59)
[2021-06-21] MEDS ORDERED: MAG HYDROX/AL HYDROX/SIMETH 30 ML CUP PO PRN (12:59)
[2021-06-21] MEDS ORDERED: RX INFO: IV CONTRAST WAS GIVEN 1 EACH MISC MISCELLANE PRN (12:59)
[2021-06-21] MEDS ORDERED: SODIUM CHLORIDE 0.9% 1,000 ML IV SCH (13:00)
[2021-06-21 13:24] LABS: Glucose,Whole Blood 237 mg/dL (75-99)
[2021-06-21] MEDS: INSULIN ASPART (NovoLOG) 100 UNIT/ML VIAL SQ SCH ×3 (13:25→21:34)
--- NOTE | 2021-06-21 16:02 | XR ---
EXAMINATION TYPE: XR chest 1V portable DATE OF EXAM: 06/21/2021 COMPARISON: 08/22/2019 HISTORY: Heart failure TECHNIQUE: Single frontal view of the chest is obtained. FINDINGS: There is minimal bilateral prominence of the interstitium. No large airspace disease. Cardiac silhouette is not enlarged. IMPRESSION: There is minimal bilateral prominence of the interstitium. No large airspace disease.
[2021-06-21 17:24] LABS: Glucose,Whole Blood 326 mg/dL (75-99)
--- NOTE | 2021-06-21 18:38 | CC ---
CARDIAC CATHETERIZATION REPORT DATE OF SERVICE: 06/21/2021 PERFORMING PHYSICIAN: Willy Alegria MD. PROCEDURE PERFORMED: 1. Selective right and left coronary angiogram. 2. Left heart catheterization. 3. Successful stenting of the distal right coronary artery using 2.75 x 38 mm Xience drug-eluting stent with an excellent angiographic result and reduction of stenosis from 100% to 0%. 4. Successful stenting of the proximal right coronary artery using 3.0 x 18 mm Xience drug-eluting stent with an excellent angiographic result and reduction of stenosis from 80% to 0%. INDICATION: This is an 80-year-old female patient with hypertension and dyslipidemia who presented to the hospital with chest discomfort and ruled in for acute coronary syndrome. She was seen by Dr. Matrinez who advised proceeding with a heart catheterization. APPROACH: Right radial artery. COMPLICATION: None. LEVEL OF SEDATION: Moderate with sedation length of 35 minutes. PROCEDURE DESCRIPTION: After obtaining informed consent, the patient was brought to the cardiac cardiovascular lab director. The right radial artery was cannulated using micropuncture technique, the micropuncture wire passed easily. Then I placed a 6-Sudanese sheath at the right radial artery. I gave the patient 2 mg of [place]ap[place] [address] units of heparin IV. Continuous ECG monitoring was done throughout the procedure. Subsequently, I did selective right and left coronary angiogram. I did selective right and left coronary angiogram with JR4 and JL3.5 catheters. I did, after that, intervene on the RCA. Please see a separate paragraph for that. After that, I did leave heart catheterization using 5-Sudanese pigtail catheter. The procedure was completed without any complication. SELECTIVE CORONARY ANGIOGRAM: 1. The right coronary artery is a large caliber vessel. It is a dominant vessel. The proximal RCA has eccentric lesion, appeared to be in the range of 80%. The mid RCA has mild disease only and RCA distally appeared to be 100% occluded. 2. The left main is angiographically normal. It bifurcates into left circumflex and left anterior descending artery. 3. The left circumflex is a large caliber vessel. It is a nondominant vessel. The left circumflex, as I mentioned, is a large caliber vessel. It is a nondominant vessel. The left circumflex itself appeared to have mild disease proximally and gives rise into a large OM branch, which only has mild disease. The circumflex continues after that as a medium caliber vessel in the AV groove. 4. The LAD is a large caliber vessel. The LAD is calcified. Proximally, has mild disease only and gives rise into a large diagonal branch, which seems to be angiographically normal. The mid LAD, just proximal to the bifurcation of another large diagonal branch, has a lesion appeared to be in the range of 60%. The LAD distally appeared to be angiographically normal. HEMODYNAMICS: The LVEDP was 25 mmHg without significant gradient across aortic valve. PCI of the RCA. Anticoagulation was initiated and achieved with heparin only with continuous ACT monitoring. Subsequently, I did engage the RCA using JR4 guiding catheter. I did wire the RCA using a Whisper wire and the acute total occlusion was crossed distally. Subsequently, I did balloon angioplasty using 2.0 x 12 mm balloon before I deployed distally 2.75 x 28 mm x 38 mm Xience drug-eluting stent, where the stent was positioned under fluoroscopic guidance and deployed under 20 atmospheres for 20 seconds and proximally 3.0 x 18 mm Xience drug-eluting stent where the stent again was positioned under fluoroscopic guidance and deployed under 20 atmospheres for 20 seconds. The following angiogram showed excellent angiographic results and the procedure was completed without any complication. Please note that after the angioplasty, the patient was given 600 mg of Plavix. CONCLUSION: 1. Acute coronary syndrome. 2. Calcified right and left coronary system. 3. Severe single-vessel coronary artery disease involving the RCA proximally and distally. I performed successful stenting of both lesions. 4. Intermediate lesion involving the mid LAD. 5. Elevated LVEDP. POSTPROCEDURE MANAGEMENT: 1. Dual anti-platelet therapy, along with aggressive cholesterol control and risk factor modifications. 2. Consider medical treatment for the lesion in the left anterior descending artery since is not flow limiting. 3. Follow up with the patient. MMODL / IJN: [id number] /
[2021-06-21 20:19] LABS: Glucose,Whole Blood 422 mg/dL (75-99)
[2021-06-21] MEDS ORDERED: INSULIN ASPART (NovoLOG) 100 UNIT/ML VIAL SQ ONE (20:51)
[2021-06-21] MEDS ORDERED: HYDROcodone/APAP 5-325MG 1 EACH TAB PO PRN (20:52)
[2021-06-21] MEDS ORDERED: INSULIN DETEMIR (LEVEMIR) 100 UNIT/ML SYR SQ SCH (21:00)
[2021-06-21] MEDS: METOPROLOL TARTRATE 12.5 MG TAB PO SCH (21:34)
[2021-06-21] MEDS: GABAPENTIN 300 MG CAP PO SCH (21:34)
[2021-06-21 22:33] LABS: Chol/HDL Ratio 2.53; LDL Cholesterol,Calculated 69.8 mg/dL (0.0-131.0); VLDL Calculation 17.2 mg/dL (5.00-40.00)
[2021-06-22 06:08] LABS: Glucose,Whole Blood 265 mg/dL (75-99)
[2021-06-22] MEDS ORDERED: HEPARIN SODIUM,PORCINE 10,000 UNIT in SODIUM CHLORIDE 0.9% 1,000 ML IRRIGATION PRN (07:00)
[2021-06-22] MEDS: INSULIN ASPART (NovoLOG) 100 UNIT/ML VIAL SQ SCH ×4 (07:00→21:29)
[2021-06-22] MEDS ORDERED: HEPARIN SODIUM,PORCINE 2,500 UNIT in SODIUM CHLORIDE 0.9% 250 ML IRRIGATION PRN (07:00)
[2021-06-22 08:24] LABS: Calcium 8.8 mg/dL (8.4-10.2)
[2021-06-22] MEDS: ISOSORBIDE MONONITRATE ER 30 MG TAB.ER.24H PO SCH (09:51)
[2021-06-22] MEDS: ASPIRIN 81 MG PO SCH (09:51)
[2021-06-22] MEDS: GABAPENTIN 300 MG CAP PO SCH ×2 (09:52→21:29)
[2021-06-22] MEDS: OXYBUTYNIN XL 5 MG TAB.ER.24 PO SCH (09:52)
[2021-06-22] MEDS: CLOPIDOGREL 75 MG TAB PO SCH (09:52)
[2021-06-22] MEDS: ATORVASTATIN 40 MG TAB PO SCH (09:52)
[2021-06-22] MEDS: METOPROLOL TARTRATE 12.5 MG TAB PO SCH ×2 (09:52→21:29)
--- NOTE | 2021-06-22 10:07 | P.PN ---
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 Patient had an EKG which showed ST depressions in inferolateral leads. Patient had a cardiac catheterization 1999 which showed obstructive disease in left anterior desce nding. Her left radical systolic function at the time was within normal limits. Patient had a repeat echocardiogram today which showed decreased EF of around 40-45% without any wall motion abnormalities, RVSP of around 50 for consistent with moderate pulmonary hypertension and dilated inferior vena cava 15 cm consistent with congestive heart failure exacerbation, IV fluids will be discontinued patient will undergo cardiac catheterization because of which I'm not starting her on Lasix patient will eventually need Lasix. Metformin will be held 06/22/2021 Patient had cardiac catheterization and found to have a complete occlusion of the distal right coronary artery and patient underwent stenting for this artery. Constitutional: Denied any fatigue denied any fever. Cardio vascular: denied any chest pain, palpitations Gastrointestinal denied any nausea vomiting Pulmonary: Denied any shortness of breath cough Neurologic denied any new focal deficits All inpatient medications were reviewed and appropriate changes in these medications as dictated in the interval history and assessment and plan. PHYSICAL EXAMINATION: GENERAL: The patient is alert and oriented x3, not in any acute distress. Well developed, well nourished. HEENT: Patient is legally blind with opacified cornea No scleral icterus. No conjunctival pallor. Normocephalic, atraumatic. No pharyngeal erythema. No thy romegaly. CARDIOVASCULAR: S1 and S2 present. No murmurs, rubs, or gallops. PULMONARY: Good air entry into bilateral lung green admitted mild bibasilar crackles ABDOMEN: Soft, nontender, nondistended, normoactive bowel sounds. No palpable organomegaly. MUSCULOSKELETAL: No joint swelling or deformity. EXTREMITIES: No cyanosis, clubbing, or pedal edema. NEUROLOGICAL: Gross neurological examination did not reveal any focal deficits. SKIN: No rashes. Assessment and plan -Acute non-ST elevation myocardial infarction: Patient had idea catheterization and stents to RCA, patient is presently on dual antiplatelet therapy. Patient may have atrial fibrillation because of which patient may end up needing anticoagulation that decision will be left to cardiology. -Congestive heart failure probably acute systolic dysfunction from him acute myocardial infarction , not in acute exacerbation, patient is presently not fluid overloaded -Hypertension -Hyperlipidemia Hypertension type 2 diabetes mellitus: Discontinued patient will be started on Lantus or Levemir at nighttime 8 units this can you metformin patient was started on sliding scale insulin. - diabetic peripheral neuropathy DVT prophylaxis: Patient on IV heparin at this time Objective - Vital Signs Vital signs: Vital Signs Temp 97.5 F L 06/22/21 04:30 Pulse 66 06/22/21 04:30 Resp 18 06/22/21 04:30 BP 102/64 06/22/21 04:30 Pulse Ox 98 06/22/21 05:59 Intake & Output 06/21/21 06/22/21 06/22/21 18:59 06:59 18:59 Intake Total 390 Output Total 850 Balance 390 -850 Weight 98.883 kg 99.5 kg Intake: IV 150 Oral 240 Output: Urine 850 Other: Voiding Method External Catheter External Catheter - Labs CBC & Chem 7: 06/20/21 20:10 06/22/21 07:27 Labs: Abnormal Lab Results - Last 24 Hours (Table) 06/21/21 06/21/21 06/21/21 Range/Units 09:54 13:22 17:23 APTT 58.0 H (22.0-30.0) sec Sodium (137-145) mmol/L Carbon Dioxide (22-30) mmol/L BUN (7-17) mg/dL Glucose (74-99) mg/dL POC Glucose (mg/dL) 237 H 326 H (75-99) mg/dL 06/21/21 06/22/21 06/22/21 Range/Units 20:18 05:57 07:27 APTT (22.0-30.0) sec Sodium 136 L (137-145) mmol/L Carbon Dioxide 31 H (22-30) mmol/L BUN 32 H (7-17) mg/dL Glucose 278 H (74-99) mg/dL POC Glucose (mg/dL) 422 H 265 H (75-99) mg/dL
--- NOTE | 2021-06-22 10:35 | PN ---
PROGRESS NOTE Mrs. Aguilar is an 80-year-old female who presented with symptoms of nausea and vomiting and mild chest discomfort. Had troponin elevation. Underwent cardiac catheterization and was found to have a totally occluded right coronary artery. He underwent stenting of that vessel by Dr. Alegria. She is feeling well today. She denies any chest pain. Her breathing has been stable. She denies any dizziness or palpitation. She denies any nausea. She continues to be on aspirin once a day, Lipitor 40 mg daily, Plavix 75 mg daily, insulin, metoprolol tartrate 12.5 mg twice a day. PHYSICAL EXAMINATION: VITAL SIGNS: Blood pressure 102/60 with a heart rate in 60s. LUNGS: Clear. HEART: Regular rate and rhythm S1, S2. No S3. No rub. ABDOMEN: Soft and nontender. EXTREMITIES: No edema. Right radial pulse intact. EKG revealed evidence of prior myocardial infarction. LAB DATA: Lab data revealed BUN and creatinine 32 and 0.92, potassium 4.0. Her echocardiogram showed an ejection fraction of 40-45%. IMPRESSION: 1. Status post myocardial infarction and totally occluded right coronary artery, status post stenting. 2. History of hypertension. 3. Hyperlipidemia. 4. Diabetes mellitus. RECOMMENDATION: From the cardiac standpoint, will continue present therapy. Increase her level of activity gradually and depending on her progress, she may be able to be discharged home tomorrow. MMODL / IJN: [id number] /
[2021-06-22 12:03] LABS: Glucose,Whole Blood 432 mg/dL (75-99)
[2021-06-22 12:03] LABS: Glucose,Whole Blood 528 mg/dL (75-99)
[2021-06-22] MEDS: INSULN ASP PRT/INSULIN ASPART 100 UNIT/ML 10 ML VIAL SQ SCH ×2 (12:41→17:27)
[2021-06-22 13:42] VITALS: BMI 37.6
[2021-06-22 16:58] LABS: Glucose,Whole Blood 402 mg/dL (75-99)
[2021-06-22 19:56] LABS: Glucose,Whole Blood 348 mg/dL (75-99)
[2021-06-23 06:13] LABS: Glucose,Whole Blood 237 mg/dL (75-99)
[2021-06-23] MEDS: INSULIN ASPART (NovoLOG) 100 UNIT/ML VIAL SQ SCH ×4 (06:36→22:02)
[2021-06-23 08:03] LABS: Calcium 8.8 mg/dL (8.4-10.2); Potassium 3.9 mmol/L (3.5-5.1)
--- NOTE | 2021-06-23 08:27 | P.DS ---
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 Patient had an EKG which showed ST depressions in inferolateral leads. Patient had a cardiac catheterization 1999 which showed obstructive disease in left anterior descending. Her left radical systolic function at the time was within normal limits. Patient had a repeat echocardiogram today which showed decreased EF of around 40-45% without any wall motion abnormalities, RVSP of around 50 for consistent with moderate pulmonary hypertension and dilated inferior vena cava 15 cm consistent with congestive heart failure exacerbation, IV fluids will be discontinued patient will undergo cardiac catheterization because of which I'm not starting her on Lasix patient will eventually need Lasix. Metformin will be held 06/22/2021 Patient had cardiac catheterization and found to have a complete occlusion of the distal right coronary artery and patient underwent stenting for this artery. Multivitamin, of Hemodynamically stable, eating O2 saturations 95% on room air. Clinically not having any chest pain, palpitation or shortness of breath. EKG was reviewed, shows possible atrial fibrillation. Heart rate is controlled, she is on metoprolol once daily, states she takes it twice daily at home we'll continue on once daily as her heart rate isn't controlled at this time. Mild to moderate MR, mild TR, moderate pulmonary hypertension RVSP 52.9 mmHg. Constitutional: Denied any fatigue denied any fever. Cardio vascular: denied any chest pain, palpitations Gastrointestinal denied any nausea vomiting Pulmonary: Denied any shortness of breath cough Neurologic denied any new focal deficits All inpatient medications were reviewed and appropriate changes in these medications as dictated in the interval history and assessment and plan. PHYSICAL EXAMINATION: GENERAL: The patient is alert and oriented x3, not in any acute distress. Well developed, well nourished. HEENT: Patient is legally blind with opacified cornea No scleral icterus. No conjunctival pallor. Normocephalic, atraumatic. No pharyngeal erythema. No thyromegaly. CARDIOVASCULAR: S1 and S2 present. No murmurs, rubs, or gallops. PULMONARY: Good air entry into bilateral lung green admitted mild bibasilar crackles ABDOMEN: Soft, nontender, nondistended, normoactive bowel sounds. No palpable organomegaly. MUSCULOSKELETAL: No joint swelling or deformity. EXTREMITIES: No cyanosis, clubbing, or pedal edema. NEUROLOGICAL: Gross neurological examination did not reveal any focal deficits. SKIN: No rashes. Assessment and plan -Acute non-ST elevation myocardial infarction: Patient had idea catheterization and stents to distal and proximal RCA, patient is presently on dual antiplatelet therapy. Patient may have atrial fibrillation because of which patient may end up needing anticoagulation that decision will be left to cardiology. Antiplatelets per cardiology -Possible atrial fibrillation: Rate controlled, we'll defer recommendation for potential need for anticoagulation to cardiology -Chronic CHF with systolic dysfunction LVEF 40-45%, not presently in acute exacerbation: She is not currently on diuretics -Hypertension -Hyperlipidemia: continue on Lipitor Hypertension type 2 diabetes mellitus: On insulin 70/3 which will be increased to 12 units twice daily with meals upon discharge and she can continue on metformin. Along with metformin - diabetic peripheral neuropathy: Continue on Neurontin Patient can be discharged home if cleared by cardiology. Patient Condition at Discharge: Serious Plan - Discharge Summary Discharge Rx Participant: No New Discharge Prescriptions: New Atorvastatin [Lipitor] 40 mg PO DAILY #30 tab Continue Gabapentin [Neurontin] 300 mg PO BID metFORMIN HCL [Glucophage] 1,000 mg PO BID Metoprolol Tartrate [Lopressor] 12.5 mg PO BID Aspirin [Adult Low Dose Aspirin EC] 325 mg PO DAILY Isosorbide Mononitrate ER [Imdur] 30 mg PO QAM Oxybutynin Xl [Ditropan XL] 5 mg PO DAILY Changed Insulin NPH Hum/Reg Insulin Hm [NovoLIN 70-30 100 UNIT/ML VIAL] 12 unit SQ BID-W/MEALS #0 Discharge Medication List Gabapentin [Neurontin] 300 mg PO BID 05/31/15 [History] metFORMIN HCL [Glucophage] 1,000 mg PO BID 05/31/15 [History] Aspirin [Adult Low Dose Aspirin EC] 325 mg PO DAILY 04/25/19 [History] Metoprolol Tartrate [Lopressor] 12.5 mg PO BID 04/25/19 [History] Isosorbide Mononitrate ER [Imdur] 30 mg PO QAM 12/21/19 [History] Oxybutynin Xl [Ditropan XL] 5 mg PO DAILY 06/20/21 [History] Atorvastatin [Lipitor] 40 mg PO DAILY #30 tab 06/22/21 [Rx] Insulin NPH Hum/Reg Insulin Hm [NovoLIN 70-30 100 UNIT/ML VIAL] 12 unit SQ BID- W/MEALS #0 06/23/21 [Rx] Follow up Appointment(s)/Referral(s): Willy Alegria MD [STAFF PHYSICIAN] - 1 Week Ruthie Jacob MD [Primary Care Provider] - 3 Days Discharge Disposition: HOME SELF-CARE
[2021-06-23] MEDS: METOPROLOL TARTRATE 12.5 MG TAB PO SCH ×2 (09:26→21:22)
[2021-06-23] MEDS: INSULN ASP PRT/INSULIN ASPART 100 UNIT/ML 10 ML VIAL SQ SCH ×2 (09:26→17:42)
[2021-06-23] MEDS: ISOSORBIDE MONONITRATE ER 30 MG TAB.ER.24H PO SCH (09:27)
[2021-06-23] MEDS: ASPIRIN 81 MG PO SCH (09:27)
[2021-06-23] MEDS: OXYBUTYNIN XL 5 MG TAB.ER.24 PO SCH (09:27)
[2021-06-23] MEDS: GABAPENTIN 300 MG CAP PO SCH ×2 (09:27→21:22)
[2021-06-23] MEDS: CLOPIDOGREL 75 MG TAB PO SCH (09:27)
[2021-06-23] MEDS: ATORVASTATIN 40 MG TAB PO SCH (09:27)
[2021-06-23 11:38] LABS: Glucose,Whole Blood 221 mg/dL (75-99)
--- NOTE | 2021-06-23 15:58 | P.PN ---
Subjective Progress Note Date: 06/23/21 This is a 80-year-old female who initially presented with symptoms of nausea and vomiting with mild chest discomfort. She was noted to have troponin elevation and underwent cardiac catheterization which showed totally occluded RCA. She subsequently underwent stenting of that vessel by Dr. Santos. She has a history of atrial fibrillation and has not been on anticoagulation in the past for unclear reasons. She has a history of falling but nothing recent. Upon examination patient is resting comfortably in bed. She is controlled currently on metoprolol titrate 12.5 milligrams by mouth twice a day, Lipitor 40 mg daily, Plavix 75 mg daily, and aspirin 81 mg by mouth daily. Echocardiogram with Doppl er study showed ejection fraction of 40-45%. Objective - Vital Signs Vital signs: Vital Signs Temp 99.3 F 06/23/21 11:16 Pulse 61 06/23/21 13:07 Resp 18 06/23/21 11:16 BP 108/63 06/23/21 11:16 Pulse Ox 97 06/23/21 11:16 Intake & Output 06/22/21 06/23/21 06/23/21 18:59 06:59 18:59 Intake Total 720 480 Output Total 400 425 100 Balance 320 -425 380 Weight 99.5 kg 99 kg Intake: Oral 720 480 Output: Urine 400 425 100 Other: Voiding Method External Catheter External Catheter External Catheter # Bowel Movements 0 - Exam PHYSICAL EXAMINATION: HEENT: Head is atraumatic, normocephalic. Neck is supple. There is no elevated jugular venous pressure. HEART EXAMINATION: Heart sounds irregular rate and rhythm, S1 and S2 normal. No murmur or gallop heard. CHEST EXAMINATION: Lungs are clear to auscultation and precussion. No chest wall tenderness is noted on palpation or with deep breathing. ABDOMEN: Soft, nontender. Bowel sounds are heard. No organomegaly noted. EXTREMITIES: 2+ peripheral pulses with no evidence of peripheral edema and no calf tenderness noted. A radial puncture site with dressing dry and intact site is soft with palpable pulse. NEUROLOGIC patient is awake, alert and oriented x3. . - Labs CBC & Chem 7: 06/20/21 20:10 06/23/21 07:20 Labs: Abnormal Lab Results - Last 24 Hours (Table) 06/22/21 06/22/21 06/23/21 Range/Units 16:36 19:44 06:08 BUN (7-17) mg/dL Creatinine (0.52-1.04) mg/dL Glucose (74-99) mg/dL POC Glucose (mg/dL) 402 H 348 H 237 H (75-99) mg/dL 06/23/21 06/23/21 Range/Units 07:20 11:37 BUN 39 H (7-17) mg/dL Creatinine 1.18 H (0.52-1.04) mg/dL Glucose 216 H (74-99) mg/dL POC Glucose (mg/dL) 221 H (75-99) mg/dL Assessment and Plan Assessment: 1 status post HI with totally occluded RCA, status post successful stenting #2 hypertension #3 hyperlipidemia #4 diabetes mellitus #5 persistent atrial fibrillation Plan: From cardiology's perspective we will add anticoagulation. She will continue aspirin and Plavix. In 1 week she will stop the aspirin and continue Plavix as well as Eliquis. We anticipate the patient will be discharged home probably tomorrow. We will continue to follow the patient and provide further recommendations accordingly. [employer] SECURITY CONSULTANT note has been reviewed, I agree with a documented findings and plan of care. Patient was seen and examined.
[2021-06-23 16:48] LABS: Glucose,Whole Blood 367 mg/dL (75-99)
[2021-06-23] MEDS: metFORMIN 500 MG TAB PO SCH (17:42)
[2021-06-23 20:52] LABS: Glucose,Whole Blood 436 mg/dL (75-99)
[2021-06-23] MEDS: APIXABAN 5 MG TAB PO SCH (21:22)
[2021-06-23] MEDS ORDERED: INSULIN ASPART (NovoLOG) 100 UNIT/ML VIAL SQ ONE (21:52)
[2021-06-24 05:33] VITALS: TEMP 98.9
[2021-06-24 06:14] LABS: Glucose,Whole Blood 290 mg/dL (75-99)
[2021-06-24] MEDS: metFORMIN 500 MG TAB PO SCH (06:36)
[2021-06-24] MEDS: INSULIN ASPART (NovoLOG) 100 UNIT/ML VIAL SQ SCH ×2 (06:36→12:30)
[2021-06-24] MEDS: METOPROLOL TARTRATE 12.5 MG TAB PO SCH (09:42)
[2021-06-24] MEDS: OXYBUTYNIN XL 5 MG TAB.ER.24 PO SCH (09:43)
[2021-06-24] MEDS: INSULN ASP PRT/INSULIN ASPART 100 UNIT/ML 10 ML VIAL SQ SCH (09:43)
[2021-06-24] MEDS: APIXABAN 5 MG TAB PO SCH (09:43)
[2021-06-24] MEDS: ATORVASTATIN 40 MG TAB PO SCH (09:43)
[2021-06-24] MEDS: ISOSORBIDE MONONITRATE ER 30 MG TAB.ER.24H PO SCH (09:43)
[2021-06-24] MEDS: GABAPENTIN 300 MG CAP PO SCH (09:43)
[2021-06-24] MEDS: CLOPIDOGREL 75 MG TAB PO SCH (09:43)
[2021-06-24] MEDS: ASPIRIN 81 MG PO SCH (09:43)
[2021-06-24 09:48] VITALS: RESP 16
[2021-06-24 11:47] LABS: Glucose,Whole Blood 315 mg/dL (75-99)
[2021-06-24 12:33] VITALS: BP 114/58; PULSE 60
--- NOTE | 2021-06-24 13:41 | P.PN ---
Subjective This is a 80-year-old female history of atrial fibrillation and has not been on anticoagulation in the past for unclear reasons, hypertension, dyslipidemia who initially presented with symptoms of nausea and vomiting with mild chest discomfort. She was noted to have troponin elevation and underwent cardiac catheterization which showed totally occluded RCA. She subsequently underwent stenting of that vessel by Dr. Alegria. Echocardiogram with Doppler study showed ejection fraction of 40-45%. Patient seen and examined at bedside, no acute distress. Blood pressure 105/53, heart rate 60, afebrile, maintaining oxygen saturations on room air. She denies any chest pain, shortness of breath, lightheadedness, dizziness, palpitations. She is controlled currently on Eliquis 5 mg twice a day, metoprolol titrate 12.5mg by mouth twice a day, Lipitor 40 mg daily, Plavix 75 mg daily, and aspirin 81 mg by mouth daily, Imdur 30 mg daily. No new labs from today. GENERAL: Well-appearing, well-nourished and in no acute distress. NECK: Supple without JVD or thyromegaly. LUNGS: Breath sounds clear to auscultation bilaterally. Respiration equal and u nlabored. No wheezes, rales or rhonchi. HEART: Regular rate and rhythm without murmurs, rubs or gallops. S1 and S2 heard. EXTREMITIES: Normal range of motion, no edema. No clubbing or cyanosis. Julia pheral pulses intact. SKIN: Right radial cath site, clean, dry, intact, no hematoma, 2+ pulses ASSESSMENT NSTEMI status post PCI to RCA Chronic persistent atrial fibrillation on Eliquis Ischemic cardiomyopathy History of hypertension Dyslipidemia Type 2 Diabetes Acute Kidney Injury PLAN From cardiology perspective, continue anticoagulation with Eliquis, aspirin, Plavix, beta lacey. Patient not put on ACEI/ARB due to renal function. Recommend patient get BMP re-drawn prior to her follow up appointment. In one week she will stop the aspirin and continue Plavix as well as Eliquis. Patient to follow up with Dr. Alegria in the office. Nurse Practitioner note has been reviewed, I agree with a documented findings and plan of care. Patient was seen and examined. Objective - Vital Signs Vital signs: Vital Signs Temp 98.9 F 06/24/21 04:20 Pulse 60 06/24/21 12:00 Resp 16 06/24/21 12:00 BP 114/58 07/26/21 12:00 Pulse Ox 97 06/24/21 12:00 Intake & Output 06/23/21 06/24/21 06/24/21 18:59 06:59 18:59 Intake Total 720 480 Output Total 250 425 Balance 470 -425 480 Weight 103.3 kg Intake: Oral 720 480 Output: Urine 250 425 Other: Voiding Method External Catheter External Catheter External Catheter - Labs CBC & Chem 7: 06/20/21 20:10 06/23/21 07:20 Labs: Abnormal Lab Results - Last 24 Hours (Table) 06/23/21 06/23/21 06/24/21 Range/Units 16:47 20:33 06:02 POC Glucose (mg/dL) 367 H 436 H 290 H (75-99) mg/dL 06/24/21 Range/Units 11:46 POC Glucose (mg/dL) 315 H (75-99) mg/dL
== END 2021-06-24 15:14 | disposition home or self-care (01) | DRG 247 ==
LOC: EC 18:50 → 3SCARD 20:39
PROVIDERS: ADMIT Internal Medicine; ATTEND Internal Medicine
PROC: B2111ZZ Fluoroscopy of Multiple Coronary Arteries using Low Osmolar Contrast (ICD-10-PCS; 2021-06-21)
PROC: 027035Z Dilation of Coronary Artery, One Artery with Two Drug-eluting Intraluminal Devices, Percutaneous Approach (ICD-10-PCS; principal; 2021-06-21 11:25)
PROC: 4A023N7 Measurement of Cardiac Sampling and Pressure, Left Heart, Percutaneous Approach (ICD-10-PCS; 2021-06-21 11:25)
DX: I21.4 Non-ST elevation (NSTEMI) myocardial infarction (principal); I48.19 Other persistent atrial fibrillation; N17.9 Acute kidney failure, unspecified; I50.22 Chronic systolic (congestive) heart failure; I25.10 Atherosclerotic heart disease of native coronary artery without angina pectoris; Z79.4 Long term (current) use of insulin; Z79.82 Long term (current) use of aspirin; K21.9 Gastro-esophageal reflux disease without esophagitis; M19.90 Unspecified osteoarthritis, unspecified site; E11.319 Type 2 diabetes mellitus with unspecified diabetic retinopathy without macular edema; H54.8 Legal blindness, as defined in USA; F32.9 Major depressive disorder, single episode, unspecified; Z82.49 Family history of ischemic heart disease and other diseases of the circulatory system; Z80.3 Family history of malignant neoplasm of breast; Z80.1 Family history of malignant neoplasm of trachea, bronchus and lung; Z83.3 Family history of diabetes mellitus; E11.42 Type 2 diabetes mellitus with diabetic polyneuropathy; I25.5 Ischemic cardiomyopathy; Z79.01 Long term (current) use of anticoagulants; I27.20 Pulmonary hypertension, unspecified; I11.0 Hypertensive heart disease with heart failure; Z79.02 Long term (current) use of antithrombotics/antiplatelets; Z79.899 Other long term (current) drug therapy; F17.200 Nicotine dependence, unspecified, uncomplicated; E78.5 Hyperlipidemia, unspecified; Z91.81 History of falling; Z87.440 Personal history of urinary (tract) infections; Z82.1 Family history of blindness and visual loss
CPT/HCPCS: 36415; 71045; 80048; 80053; 80061; 84484; 85025; 85610; 85730; 93005; 93306; 93458; 94760; 96365; 96366; 99285

== ENCOUNTER 2025-06-17 18:11 | Inpatient (IN) | payer MEDICARE ==
--- NOTE | 2025-06-17 18:39 | ED ---
Neck Injury/Pain HPI - General Chief Complaint: Extremity Injury, Lower Stated Complaint: Leg pain Time Seen by Provider: 06/17/25 18:12 Source: RN notes reviewed, old records reviewed Mode of arrival: EMS Limitations: no limitations - History of Present Illness Initial Comments: This is a 84-year-old female to the ER for headache and neck pain worsening neck pain so she twisted her neck in the wrong direction. Patient said pain ever since 3 to 4 days of neck pain. MD Complaint: neck pain, neck injury -: days(s) (3) Severity: severe Severity scale (1-10): 7 Quality: sharp, stabbing Consistency: constant Improves With: none Worsens With: none Context: fall Associated Symptoms: none Treatments Prior to Arrival: none - Related Data Home Medications Medication Instructions Recorded Confirmed Metoprolol Tartrate [Lopressor] 12.5 mg PO BID 04/25/19 06/17/25 Isosorbide Mononitrate ER [Imdur] 60 mg PO DAILY 12/21/19 06/17/25 ALPRAZolam [Xanax] 0.25 mg PO DAILY PRN 06/17/25 06/17/25 Aspirin [Adult Low Dose Aspirin EC] 81 mg PO DAILY 06/17/25 06/17/25 Atorvastatin [Lipitor] 40 mg PO DAILY 06/17/25 06/19/25 Clobetasol Propionate [Temovate 1 applic TOPICAL DAILY PRN 06/17/25 06/17/25 0.05% Oint] Furosemide [Lasix] 40 mg PO DAILY 06/17/25 06/17/25 Insulin Glargine,Hum.rec.anlog 6 units SQ DAILY 06/17/25 06/17/25 [Lantus Solostar Pen] Insulin NPH Hum/Reg Insulin Hm 6 unit SQ HS PRN 06/17/25 06/17/25 [NovoLIN 70-30 100 UNIT/ML VIAL] Nitroglycerin Sl Tabs [Nitrostat] 0.4 mg SL Q5M PRN 06/17/25 06/17/25 hydrOXYzine HCL [Atarax] 25 mg PO BID 06/17/25 06/17/25 Nystatin/Triamcin Cream [Mycolog 1 applic TOPICAL BID PRN 06/19/25 06/19/25 Cream -- 100,000-0.1 Unit/gm-%] Allergies Allergy/AdvReac Type Severity Reaction Status Date / Time iodine Allergy Wheezing Verified 06/17/25 19:46 amoxicillin trihydrate AdvReac Nausea & Verified 06/17/25 19:46 [From Augmentin] Vomiting potassium clavulanate AdvReac Nausea & Verified 06/17/25 19:46 [From Augmentin] Vomiting vancomycin AdvReac Unknown Verified 06/17/25 19:46 Review of Systems ROS Statement: Those systems with pertinent positive or pertinent negative responses have been documented in the HPI. ROS Other: All systems not noted in ROS Statement are negative. Past Medical History Past Medical History: Atrial Fibrillation, Coronary Artery Disease (CAD), Chest Pain / Angina, Heart Failure, Diabetes Mellitus, Eye Disorder, GERD/Reflux, Hypertension, Neurologic Disorder, Osteoarthritis (OA), Syncope Additional Past Medical History / Comment(s): C/O "LT EYE ITCHING AND PUFFINESS"DIABETIC RETINOPATHY- HAD MULTIPLE LASER SX BUT ISLEGALLY BLIND, PASTCARDIAC ARREST-SON STATED PT HAD 2 HEART ATTACKS", NUMBNESS TO FINGERS , PAST FALL D/T SYNCOPE-BROKE LT ANKLE-WORE A BOOT. ANKLE SWELLING. "VERY SENSATIVE TO BP MEDS", SEVERAL ABD HERNIAS, MULTIPLE UTI'S,HERNIATED DISC, PAST BROKEN ANKLE(LT), NUMBNESS LOWER FINGERS. PT HAS AN IDENTICAL TWIN SISTER THAT ALSO IS BLIND D/T RETINOPATHY History of Any Multi-Drug Resistant Organisms: None Reported Past Surgical History: Appendectomy, Cholecystectomy, Heart Catheterization, Hernia Repair Additional Past Surgical History / Comment(s): MULTIPLE EYE SURGERIES, LOOP RECORDER , COLONOSCOPY Past Anesthesia/Blood Transfusion Reactions: No Reported Reaction Past Psychological History: Depression Past Alcohol Use History: None Reported Past Drug Use History: None Reported - Past Family History Mother Family Medical History: No Reported History Additional Family Medical History / Comment(s): FROM COMPLICATIONS OF A SURGURY WHEN PT WAS 4 YEARS OLD. Father Family Medical History: Dementia Additional Family Medical History / Comment(s): AT AGE 88 FROM [place] Brother(s) Family Medical History: Dementia Son(s) Family Medical History: Diabetes Mellitus Daughter(s) Family Medical History: Diabetes Mellitus Sister(s) Family Medical History: Diabetes Mellitus, Hypertension, Myocardial Infarction (SD) Additional Family Medical History / Comment(s): Breast cancer. Her niece also had breast cancer. Another sister had lung cancer. General Exam Limitations: no limitations General appearance: alert, in no apparent distress Head exam: Present: atraumatic, normocephalic, normal inspection Eye exam: Present: normal appearance, PERRL, EOMI. Absent: scleral icterus, conjunctival injection, periorbital swelling ENT exam: Present: normal exam, mucous membranes moist Neck exam: Present: normal inspection. Absent: tenderness, meningismus, lymphadenopathy Respiratory exam: Present: normal lung sounds bilaterally. Absent: respiratory distress, wheezes, rales, rhonchi, stridor Cardiovascular Exam: Present: regular rate, normal rhythm, normal heart sounds. Absent: systolic murmur, diastolic murmur, rubs, gallop, clicks GI/Abdominal exam: Present: soft, normal bowel sounds. Absent: distended, tenderness, guarding, rebound, rigid Extremities exam: Present: normal inspection, full ROM, normal capillary refill. Absent: tenderness, pedal edema, joint swelling, calf tenderness Back exam: Present: normal inspection Neurological exam: Present: alert, oriented X3, CN II-XII intact Psychiatric exam: Present: normal affect, normal mood Skin exam: Present: warm, dry, intact, normal color. Absent: rash Course Vital Signs 06/17/25 06/17/25 06/17/25 18:14 20:00 21:27 Temperature Pulse Rate 90 84 82 Respiratory 19 13 18 Rate Blood Pressure 159/77 159/77 138/74 O2 Sat by Pulse 98 99 97 Oximetry 06/17/25 06/17/25 06/17/25 22:00 23:00 23:26 Temperature 98.4 F Pulse Rate 80 72 Respiratory 13 18 Rate Blood Pressure 164/74 132/64 O2 Sat by Pulse 98 97 Oximetry 06/17/25 23:47 Temperature Pulse Rate 80 Respiratory 15 Rate Blood Pressure 128/59 O2 Sat by Pulse 98 Oximetry - Reevaluation(s) Reevaluation #1: 06/17/25 18:47 Medical records reviewed Reevaluation #2: 06/17/25 21:10 Patient's symptoms improved Reevaluation #3: 06/17/25 21:10 Patient informed of results questions answered Reevaluation #4: Was pt. sent in by a medical professional or institution (Dr., PA, OIL CHANGER, urgent care, hospital, or [place] [facility] care facility...) When possible be specific @ -no Did you speak to anyone other than the patient for history (EMS, parent, family, police, friend...)? What history was obtained from this source @ -no Did you review nursing and triage notes (agree or disagree)? Why? @ -agree Are old charts reviewed (outside hosp., previous admission, EMS record, old EKG, old radiological studies, urgent care reports/EKG's, [place] health care facility records)? Report findings @ -yes Differential Diagnosis (chest pain, altered mental status, abdominal pain women, abdominal pain men, vaginal bleeding, weakness, fever, dyspnea, syncope, headache, dizziness, GI bleed, back pain, seizure, CVA, palpatations, mental health, musculoskeletal)? @ -prior EKG interpreted by me (3pts min.). @ -no X-rays interpreted by me (1pt min.). @ -yes negative for acute disease CT interpreted by me (1pt min.). @ -yse negative for acute disease U/S interpreted by me (1pt. min.). @ -no What testing was considered but not performed or refused? (CT, X-rays, U/S, labs)? Why? @ -none What meds were considered but not given or refused? Why? @ -none Did you discuss the management of the patient with other professionals (professionals i.e. ESEQUIEL Sotelo, OIL CHANGER, lab, RT, psych nurse, case management social worker, manager intermediate, teacher, public relations officer, window caser)? Give summary @ -no Was smoking cessation discussed for >3mins.? @ -no Was critical care preformed (if so, how long)? @ -no Were there social determinants of health that impacted care today? How? (Homelessness, low income, unemployed, alcoholism, drug addiction, transportation, low edu. Level, literacy, decrease access to med. care, senior living, rehab)? @ -none Was there de-escalation of care discussed even if they declined (Discuss DNR or withdrawal of care, Hospice)? DNR status @ -no What co-morbidities impacted this encounter? (DM, HTN, Smoking, COPD, CAD, Cancer, CVA, ARF, Chemo, Hep., AIDS, mental health diagnosis, sleep apnea, morbid obesity)? @ -none Was patient admitted / discharged? Hospital course, mention meds given and route, prescriptions, significant lab abnormalities, going to OR and other pertinent info. @ - 84 female to the ER for evaluation of fall with neck pain. Neck injury no acute traumatic injury noted lab testing normal patient feels well and can be discharged home Discharge Undiagnosed new problem with uncertain prognosis? @ -no Drug Therapy requiring intensive monitoring for toxicity (Heparin, Nitro, Insulin, Cardizem)? @ -no Were any procedures done? @ -no Diagnosis/symptom? @ -Fall, neck pain, debility, weakness Acute, or Chronic, or Acute on Chronic? @ -Acute Uncomplicated (without systemic symptoms) or Complicated (systemic symptoms)? @ -Complicated Side effects of treatment? @ -no Exacerbation, Progression, or Severe Exacerbation? @ -exacerbation Poses a threat to life or bodily function? How? (Chest pain, USA, SD, pneumonia, PE, COPD, DKA, ARF, appy, cholecystitis, CVA, Diverticulitis, Homicidal, Suicidal, threat to staff... and all critical care pts) @ -yes extremes of age Reevaluation #5: Differential Headache: Migraine, tension, cluster, carbon monoxide, central venous thrombosis, pension karma temporal arteritis, acute closure glaucoma, intercranial hemorrhage, mastoiditis, sinusitis, head injury, this is not meant to be an all-inclusive list. - Consultations Consultation #1: Spoke with admitting physicians will admit this patient Medical Decision Making - Medical Decision Making 84 female to the ER for evaluation of fall with neck pain. Neck injury no acute traumatic injury noted lab testing normal patient feels well and can be discharged home - Lab Data Result diagrams: 06/20/25 03:04 06/20/25 03:04 Lab Results 06/17/25 06/17/25 06/17/25 Range/Units 19:46 19:46 19:46 WBC 5.88 (4.50-10.00) 10*3/uL RBC 3.68 L (4.10-5.20) 10*6/uL Hgb 11.3 L (12.0-15.0) g/dL Hct 32.9 L (37.2-46.3) % MCV 89.4 (80.0-97.0) fL MCH 30.7 (27.0-32.0) pg MCHC 34.3 (32.0-37.0) g/dL Plt Count 179 (140-440) 10*3/uL MPV 10.0 (9.5-12.2) fL Immature Gran % (Auto) 0.2 % Neutrophils % 74.6 % Lymphocytes % 13.8 % Monocytes % 10.0 % Eosinophils % 1.2 % Basophils % 0.2 % Immature Gran # 0.01 (0.00-0.04) 10*3/uL Neutrophils # 4.39 (1.80-7.70) 10*3/uL Lymphocytes # 0.81 L (0.90-5.00) 10*3/uL Monocytes # 0.59 (0.20-1.00) 10*3/uL Eosinophils # 0.07 (0.04-0.35) 10*3/uL Basophils # 0.01 (0.00-0.10) 10*3/uL PT 11.3 (10.0-12.5) sec INR 1.0 (<1.2) APTT 26.3 (22.0-30.0) sec Sodium 136 L (137-145) mmol/L Potassium 4.4 (3.5-5.1) mmol/L Chloride 99 (98-107) mmol/L Carbon Dioxide 26 (22-30) mmol/L Anion Gap 11 mmol/L BUN 33 H (7-17) mg/dL Creatinine 1.49 H (0.52-1.04) mg/dL Est GFR (CKD-EPI)AfAm 37 (>60 ml/min/1.73 sqM) Est GFR (CKD-EPI)NonAf 32 (>60 ml/min/1.73 sqM) Glucose 261 H (74-99) mg/dL Plasma Lactic Acid Clint (0.7-2.0) mmol/L Calcium 9.4 (8.4-10.2) mg/dL Phosphorus 3.2 (2.5-4.5) mg/dL Magnesium 2.1 (1.6-2.3) mg/dL Total Bilirubin 1.0 (0.2-1.3) mg/dL AST 21 (14-36) U/L ALT 10 (4-34) U/L Alkaline Phosphatase 77 (38-126) U/L Troponin I (0.000-0.034) ng/mL Total Protein 6.9 (6.3-8.2) g/dL Albumin 4.0 (3.5-5.0) g/dL TSH 0.813 (0.465-4.680) mIU/L Urine Color Urine Appearance (Clear) Urine pH (5.0-8.0) Ur Specific [place] (1.001-1.035) Urine Protein (Negative) Urine Glucose (UA) (Negative) Urine Ketones (Negative) Urine Blood (Negative) Urine Nitrite (Negative) Urine Bilirubin (Negative) Urine Urobilinogen (<2.0) mg/dL Ur Leukocyte Esterase (Negative) 06/17/25 06/17/25 06/17/25 Range/Units 19:46 19:46 20:04 WBC (4.50-10.00) 10*3/uL RBC (4.10-5.20) 10*6/uL Hgb (12.0-15.0) g/dL Hct (37.2-46.3) % MCV (80.0-97.0) fL MCH (27.0-32.0) pg MCHC (32.0-37.0) g/dL Plt Count (140-440) 10*3/uL MPV (9.5-12.2) fL Immature Gran % (Auto) % Neutrophils % % Lymphocytes % % Monocytes % % Eosinophils % % Basophils % % Immature Gran # (0.00-0.04) 10*3/uL Neutrophils # (1.80-7.70) 10*3/uL Lymphocytes # (0.90-5.00) 10*3/uL Monocytes # (0.20-1.00) 10*3/uL Eosinophils # (0.04-0.35) 10*3/uL Basophils # (0.00-0.10) 10*3/uL PT (10.0-12.5) sec INR (<1.2) APTT (22.0-30.0) sec Sodium (137-145) mmol/L Potassium (3.5-5.1) mmol/L Chloride (98-107) mmol/L Carbon Dioxide (22-30) mmol/L Anion Gap mmol/L BUN (7-17) mg/dL Creatinine (0.52-1.04) mg/dL Est GFR (CKD-EPI)AfAm (>60 ml/min/1.73 sqM) Est GFR (CKD-EPI)NonAf (>60 ml/min/1.73 sqM) Glucose (74-99) mg/dL Plasma Lactic Acid Clint 1.1 (0.7-2.0) mmol/L Calcium (8.4-10.2) mg/dL Phosphorus (2.5-4.5) mg/dL Magnesium (1.6-2.3) mg/dL Total Bilirubin (0.2-1.3) mg/dL AST (14-36) U/L ALT (4-34) U/L Alkaline Phosphatase (38-126) U/L Troponin I <0.012 (0.000-0.034) ng/mL Total Protein (6.3-8.2) g/dL Albumin (3.5-5.0) g/dL TSH (0.465-4.680) mIU/L Urine Color Colorless Urine Appearance Clear (Clear) Urine pH 7.0 (5.0-8.0) Ur Specific [place] 1.005 (1.001-1.035) Urine Protein Negative (Negative) Urine Glucose (UA) 2+ H (Negative) Urine Ketones Negative (Negative) Urine Blood Negative (Negative) Urine Nitrite Negative (Negative) Urine Bilirubin Negative (Negative) Urine Urobilinogen <2.0 (<2.0) mg/dL Ur Leukocyte Esterase Negative (Negative) - EKG Data -: EKG Interpreted by Me (EKG is A-fib 86 QRS 98 QTc 409) - Radiology Data Radiology results: report reviewed (CT brain C-spine hip and pelvis x-ray negative for acute disease), image reviewed Disposition Clinical Impression: Neck pain, Left hip pain, Debility, Weakness Disposition: ADMITTED IP TO THIS [facility] Condition: Fair Is patient prescribed a controlled substance at d/c from ED?: No Time of Disposition: 21:00
[2025-06-17] MEDS: MORPHINE SULFATE 4 MG/ML SYRINGE IM STA (18:59)
[2025-06-17 19:57] LABS: Basophils # (A) 0.01 10*3/uL (0.00-0.10); Basophils % (A) 0.2 %; Eosinophils # (A) 0.07 10*3/uL (0.04-0.35); Eosinophils % (A) 1.2 %; HCT 32.9 % (37.2-46.3); HGB 11.3 g/dL (12.0-15.0); Lymphocytes # (A) 0.81 10*3/uL (0.90-5.00); Lymphocytes % (A) 13.8 %; MCH 30.7 pg (27.0-32.0); MCHC 34.3 g/dL (32.0-37.0); MCV 89.4 fL (80.0-97.0); Monocytes # (A) 0.59 10*3/uL (0.20-1.00); Monocytes % (A) 10.0 %; Neutrophils # (A) 4.39 10*3/uL (1.80-7.70); Neutrophils % (A) 74.6 %; Platelet Count 179 10*3/uL (140-440); RBC 3.68 10*6/uL (4.10-5.20); RDW 12.3 % (11.5-14.5); WBC 5.88 10*3/uL (4.50-10.00)
[2025-06-17] MEDS: SODIUM CHLORIDE 0.9% 1,000 ML IV ONE (20:02)
[2025-06-17 20:08] LABS: INR 1.0 (<1.2); Partial Thromboplastin Time 26.3 sec (22.0-30.0); Prothrombin Time 11.3 sec (10.0-12.5)
[2025-06-17 20:09] LABS: ALT 10 U/L (4-34); AST 21 U/L (14-36); African American GFR (CKD) 37 (>60 ml/min/1.73 sqM); Albumin 4.0 g/dL (3.5-5.0); Alkaline Phosphatase 77 U/L (38-126); Anion Gap 11 mmol/L; Blood Urea Nitrogen 33 mg/dL (7-17); Calcium 9.4 mg/dL (8.4-10.2); Carbon Dioxide 26 mmol/L (22-30); Chloride 99 mmol/L (98-107); Glucose 261 mg/dL (74-99); Magnesium 2.1 mg/dL (1.6-2.3); Non-African American GFR(CKD) 32 (>60 ml/min/1.73 sqM); Potassium 4.4 mmol/L (3.5-5.1); Sodium 136 mmol/L (137-145); Total Protein 6.9 g/dL (6.3-8.2)
--- NOTE | 2025-06-17 20:30 | XR ---
EXAMINATION TYPE: XR Hip LT and AP Pelvis DATE OF EXAM: 06/17/2025 8:21 PM COMPARISON: None available. CLINICAL INDICATION: Female, 84 years old with history of pain; PHH, pain TECHNIQUE: XR Hip LT and AP Pelvis; hip was examined in the frontal and lateral projections and a AP pelvis. FINDINGS: No evidence for acute process, joint dislocation or significant soft tissue swelling. Moder ate left hip degenerative osteoarthritis. Vascular calcifications present. Lumbosacral spinal degener ative changes partially visualized. IMPRESSION: No acute osseous abnormality. [facility], , 06/17/2025 8:27 PM
--- NOTE | 2025-06-17 20:41 | CT ---
EXAMINATION TYPE: CT brain cspine wo con DATE OF EXAM: 06/17/2025 8:31 PM COMPARISON: Previous CT study dated 08/22/2019. CLINICAL INDICATION: Female, 84 years old with history of pain; strained leg 4 days cannot lift left leg TECHNIQUE: Brain: Multiple axial CT images of the brain were obtained without IV contrast. Cspine: Axial CT images from the skull base to the inferior aspect of T2 we obtained without intraven ous contrast. Coronal and sagittal reformatted images were also reviewed. . CT DLP: 1314.3 mGycm, Automated exposure control for dose reduction was used. FINDINGS: Brain: Extra-axial spaces: No abnormal extra-axial fluid collections. Ventricular system: Dilatation in proportion to cerebral atrophy. Cerebral parenchyma: No acute intraparenchymal hemorrhage or mass effect. The ortega-white junction is well differentiated. Scattered hypoattenuating areas are seen within the white matter. Cerebellum: Unremarkable. Mass effect: No evidence of midline shift. Intracranial vasculature: unremarkable Soft tissues: Normal. Calvarium/osseous structures: No depressed skull fracture. Paranasal sinuses and mastoid air cells: Clear. Visualized orbits: Atrophic and calcified, similar to prior study. Cervical spine: Fracture: None. Osseous structures: Multilevel degenerative disc disease changes with endplate spurring and disc oste ophyte complex's. Vertebral alignment: Within normal limits. Spinal canal/Neural Foramina: Multilevel facet arthropathy, uncovertebral hypertrophy and posterior d isc osteophyte complexes cause varying degrees of multilevel neural foraminal narrowing and spinal ca nal stenosis. Overall, evaluation of spinal canal suboptimal due to streak artifact. Neck soft tissues: Prevertebral soft tissues are within normal limits. Other: The airway is patent. The lung apices are clear. IMPRESSION: 1. No acute intracranial process. 2. No acute fracture or traumatic subluxation of the cervical spine. [facility], , 06/17/2025 8:39 PM
[2025-06-17 20:58] LABS: Bilirubin,Urine Negative (Negative); Blood,Urine Negative (Negative); Color,Urine Colorless; Glucose,Urine (UA) 2+ (Negative); Ketones,Urine Negative (Negative); Leukocyte Esterase,Urine Negative (Negative); Nitrite,Urine Negative (Negative); PH, Urine 7.0 (5.0-8.0); Protein,Urine Negative (Negative); Specific Gravity,Urine 1.005 (1.001-1.035); Urobilinogen,Urine <2.0 mg/dL (<2.0)
[2025-06-17] MEDS: KETOROLAC 15 MG/ML 1 ML VIAL IVP STA (21:58)
--- NOTE | 2025-06-17 22:13 | CT ---
EXAMINATION TYPE: CT hip LT wo con DATE OF EXAM: 06/17/2025 9:54 PM COMPARISON: In the left hip radiograph. CLINICAL INDICATION: Female, 84 years old with history of pain; PHH, strained leg 4 days cannot lift left leg TECHNIQUE: Axial images were obtained of the CT hip LT wo con, Additional coronal and sagittal reform atted images and soft tissue and bone window were obtained for review. 3-D reconstruction was created on a separate workstation. CT DLP: 1043.6 mGycm, Automated exposure control for dose reduction was used. FINDINGS: Osseous structures diffusely demineralized. No acute fracture or dislocation of the left hip. Moderat e to severe left hip degenerative arthritis. Left acetabulum appears intact. Partially visualized lef t pelvic bones also appear intact. Vascular opacification is noted. No large soft tissue hematoma or contusion. No expected of a foreign body. Partially visualized pelvis without acute pathology. IMPRESSION: No acute fracture or dislocation of the left hip. [facility], , 06/17/2025 10:11 PM
[2025-06-17] MEDS ORDERED: NALOXONE 0.4 MG/ML 1 ML VIAL IV PRN (22:25)
[2025-06-17] MEDS ORDERED: HYDROmorphone 1 MG/ML 1 ML SYRINGE IVP PRN (22:25)
[2025-06-17] MEDS: SODIUM CHLORIDE 0.9% 1,000 ML IV SCH (23:13)
[2025-06-18 05:59] LABS: Basophils # (A) 0.01 10*3/uL (0.00-0.10); Basophils % (A) 0.2 %; Eosinophils # (A) 0.06 10*3/uL (0.04-0.35); Eosinophils % (A) 0.9 %; HCT 28.8 % (37.2-46.3); Lymphocytes # (A) 0.84 10*3/uL (0.90-5.00); Lymphocytes % (A) 13.0 %; MCH 30.8 pg (27.0-32.0); MCHC 34.0 g/dL (32.0-37.0); MCV 90.6 fL (80.0-97.0); Monocytes # (A) 0.79 10*3/uL (0.20-1.00); Monocytes % (A) 12.3 %; Neutrophils # (A) 4.72 10*3/uL (1.80-7.70); Neutrophils % (A) 73.3 %; Platelet Count 152 10*3/uL (140-440); RBC 3.18 10*6/uL (4.10-5.20); RDW 12.5 % (11.5-14.5); WBC 6.44 10*3/uL (4.50-10.00)
[2025-06-18 06:09] LABS: ALT 9 U/L (4-34); AST 16 U/L (14-36); African American GFR (CKD) 34 (>60 ml/min/1.73 sqM); Albumin 3.2 g/dL (3.5-5.0); Alkaline Phosphatase 62 U/L (38-126); Anion Gap 7 mmol/L; Blood Urea Nitrogen 33 mg/dL (7-17); Calcium 8.9 mg/dL (8.4-10.2); Carbon Dioxide 29 mmol/L (22-30); Chloride 100 mmol/L (98-107); Glucose 299 mg/dL (74-99); Non-African American GFR(CKD) 30 (>60 ml/min/1.73 sqM); Potassium 3.9 mmol/L (3.5-5.1); Sodium 136 mmol/L (137-145); Total Protein 5.6 g/dL (6.3-8.2)
[2025-06-18 06:11] LABS: Glucose,Whole Blood 355 mg/dL (70-110)
[2025-06-18 06:31] LABS: HGB 9.8 g/dL (12.0-15.0)
[2025-06-18] MEDS: KETOROLAC 15 MG/ML 1 ML VIAL IVP PRN (11:24)
[2025-06-18 11:36] LABS: Glucose,Whole Blood 270 mg/dL (70-110)
[2025-06-18] MEDS ORDERED: ALPRAZolam 0.25 MG TAB PO PRN (11:55)
[2025-06-18] MEDS: ATORVASTATIN 40 MG TAB PO SCH (12:43)
[2025-06-18] MEDS: METOPROLOL TARTRATE 12.5 MG TAB PO SCH (12:43)
[2025-06-18] MEDS: INSULIN GLARGINE (LANTUS) 100 UNIT/ML SYR SQ SCH (12:44)
[2025-06-18] MEDS: ISOSORBIDE MONONITRATE ER 60 MG TAB.ER.24H PO SCH (12:44)
--- NOTE | 2025-06-18 15:24 | P.HPIM ---
History of Present Illness H&P Date: 06/18/25 84-year-old female, history of hypertension, atrial fibrillation, CAD, CHF, diabetes mellitus, osteoarthritis, presents to the ER for headache and neck pain worsening neck pain so she twisted her neck in the wrong direction. Patient said pain ever since 3 to 4 days of neck pain. Patient is very vague and poor historian; not able to tell anything about the said complaint of pain - Reports he is not able to manage by herself at home Blood work completed in ED reveals WBC of 5.88, hemoglobin of 11.3 and platelet count of 179, sodium 136, potassium 4.4, BUN/creatinine of 33/1.49 and blood glucose of 261 UA is unremarkable X-ray of the hip is negative for any acute osseous abnormality -CT of the left hip does not reveal any acute fracture or dislocation CT of the head does not reveal any acute intracranial process CT of the cervical spine is negative for any acute fractures or traumatic sub luxation of cervical spine Review of Systems REVIEW OF SYSTEMS: CONSTITUTIONAL: No fever, no malaise, no fatigue. HEENT: No recent visual problems or hearing problems. Denied any sore throat. CARDIOVASCULAR: No chest pain, orthopnea, PND, no palpitations, no syncope. PULMONARY: No shortness of breath, no cough, no hemoptysis. GASTROINTESTINAL: No diarrhea, no nausea, no vomiting, no abdominal pain. NEUROLOGICAL: No headaches, no weakness, no numbness. HEMATOLOGICAL: Denies any bleeding or petechiae. GENITOURINARY: Denies any burning micturition, frequency, or urgency. MUSCULOSKELETAL/RHEUMATOLOGICAL: Denies any joint pain, swelling, or any muscle pain. ENDOCRINE: Denies any polyuria or polydipsia. The rest of the 14-point review of systems is negative. Past Medical History Past Medical History: Atrial Fibrillation, Coronary Artery Disease (CAD), Chest Pain / Angina, Heart Failure, Diabetes Mellitus, Eye Disorder, GERD/Reflux, Hypertension, Neurologic Disorder, Osteoarthritis (OA), Syncope Additional Past Medical History / Comment(s): C/O "LT EYE ITCHING AND PUFFINESS"DIABETIC RETINOPATHY- HAD MULTIPLE LASER SX BUT ISLEGALLY BLIND, PASTCARDIAC ARREST-SON STATED PT HAD 2 HEART ATTACKS", NUMBNESS TO FINGERS , PAST FALL D/T SYNCOPE-BROKE LT ANKLE-WORE A BOOT. ANKLE SWELLING. "VERY SENSATIVE TO BP MEDS", SEVERAL ABD HERNIAS, MULTIPLE UTI'S,HERNIATED DISC, PAST BROKEN ANKLE(LT), NUMBNESS LOWER FINGERS. PT HAS AN IDENTICAL TWIN SISTER THAT ALSO IS BLIND D/T RETINOPATHY History of Any Multi-Drug Resistant Organisms: None Reported Past Surgical History: Appendectomy, Cholecystectomy, Heart Catheterization, Hernia Repair Additional Past Surgical History / Comment(s): MULTIPLE EYE SURGERIES, LOOP R ECORDER , COLONOSCOPY Past Anesthesia/Blood Transfusion Reactions: No Reported Reaction Past Psychological History: Depression Additional Psychological History / Comment(s): PT'S SON LIVES WITH HER .BETWEEN SON AND DAUGHTER THEY CARE FOR PT. PT USES A CANE INSIDE HOME AND WALKER WHEN OUTSIDE. PAST FALLS. NO OTHER OUTSIDE SERVICES RECIEVED. HAS BERTA READER,GLUCOSE MONITOR, CANE/WALKER. BARS ON BED AND IN BATHROOM. Smoking Status: Heavy tobacco smoker Past Alcohol Use History: None Reported Past Drug Use History: None Reported - Past Family History Mother Family Medical History: No Reported History Additional Family Medical History / Comment(s): FROM COMPLICATIONS OF A SURGURY WHEN PT WAS 4 YEARS OLD. Father Family Medical History: Dementia Additional Family Medical History / Comment(s): AT AGE 88 FROM [place] Brother(s) Family Medical History: Dementia Son(s) Family Medical History: Diabetes Mellitus Daughter(s) Family Medical History: Diabetes Mellitus Sister(s) Family Medical History: Diabetes Mellitus, Hypertension, Myocardial Infarction ([place]) Additional Family Medical History / Comment(s): Breast cancer. Her niece also had breast cancer. Another sister had lung cancer. Medications and Allergies Home Medications Medication Instructions Recorded Confirmed Type Metoprolol Tartrate [Lopressor] 12.5 mg PO BID 04/25/19 06/17/25 History Isosorbide Mononitrate ER [Imdur] 60 mg PO DAILY 12/21/19 06/17/25 History ALPRAZolam [Xanax] 0.25 mg PO DAILY PRN 06/17/25 06/17/25 History Aspirin [Adult Low Dose Aspirin EC] 81 mg PO DAILY 06/17/25 06/17/25 History Atorvastatin [Lipitor] 40 mg PO DIRECTED 06/17/25 06/17/25 History Clobetasol Propionate [Temovate 1 applic TOPICAL DAILY PRN 06/17/25 06/17/25 History 0.05% Oint] Furosemide [Lasix] 40 mg PO DAILY 06/17/25 06/17/25 History Insulin Glargine,Hum.rec.anlog 6 units SQ DAILY 06/17/25 06/17/25 History [Lantus Solostar Pen] Insulin NPH Hum/Reg Insulin Hm 6 unit SQ HS PRN 06/17/25 06/17/25 History [NovoLIN 70-30 100 UNIT/ML VIAL] Nitroglycerin Sl Tabs [Nitrostat] 0.4 mg SL Q5M PRN 06/17/25 06/17/25 History Nystatin 100,000Unit/gm Cream 1 applic TOPICAL DIRECTED PRN 06/17/25 06/17/25 History [Mycostatin Cream] hydrOXYzine HCL [Atarax] 25 mg PO BID 06/17/25 06/17/25 History Allergies Allergy/AdvReac Type Severity Reaction Status Date / Time iodine Allergy Wheezing Verified 06/17/25 19:46 amoxicillin trihydrate AdvReac Nausea & Verified 06/17/25 19:46 [From Augmentin] Vomiting potassium clavulanate AdvReac Nausea & Verified 06/17/25 19:46 [From Augmentin] Vomiting vancomycin AdvReac Unknown Verified 06/17/25 19:46 Physical Exam Vitals: Vital Signs Temp Pulse Pulse Resp BP BP Pulse Ox 06/18/25 07:30 98.2 F 70 15 122/69 99 06/18/25 00:35 98.7 F 88 16 157/84 97 06/17/25 23:47 80 15 128/59 98 06/17/25 23:26 98.4 F 06/17/25 23:00 72 18 132/64 97 06/17/25 22:00 80 13 164/74 98 06/17/25 21:27 82 18 138/74 97 06/17/25 20:00 84 13 159/77 99 06/17/25 18:14 90 19 159/77 98 Intake and Output 06/17/25 06/18/25 06/18/25 22:59 06:59 14:59 Output Total 100 Balance -100 Output: Urine 100 Other: Voiding Method External Catheter Weight 98.883 kg 98.883 kg General appearance: alert, in no apparent distress Head exam: Present: atraumatic, normocephalic, normal inspection Eye exam: Present: normal appearance, PERRL, EOMI. Absent: scleral icterus, conjunctival injection, periorbital swelling ENT exam: Present: normal exam, mucous membranes moist Neck exam: Present: normal inspection. Absent: tenderness, meningismus, lymphadenopathy Respiratory exam: Present: normal lung sounds bilaterally. Absent: respiratory distress, wheezes, rales, rhonchi, stridor Cardiovascular Exam: Present: regular rate, normal rhythm, normal heart sounds. Absent: systolic murmur, diastolic murmur, rubs, gallop, clicks GI/Abdominal exam: Present: soft, normal bowel sounds. Absent: distended, tenderness, guarding, rebound, rigid Extremities exam: Present: normal inspection, full ROM, normal capillary refill. Absent: tenderness, pedal edema, joint swelling, calf tenderness Neurological exam: Present: alert, oriented X3, CN II-XII intact Psychiatric exam: Present: normal affect, normal mood Skin exam: Present: warm, dry, intact, normal color. Absent: rash Results CBC & Chem 7: 06/18/25 05:35 06/18/25 05:35 Labs: Abnormal Lab Results - Last 24 Hours (Table) 06/17/25 06/17/25 06/17/25 Range/Units 19:46 19:46 20:04 RBC 3.68 L (4.10-5.20) 10*6/uL Hgb 11.3 L (12.0-15.0) g/dL Hct 32.9 L (37.2-46.3) % Lymphocytes # 0.81 L (0.90-5.00) 10*3/uL Sodium 136 L (137-145) mmol/L BUN 33 H (7-17) mg/dL Creatinine 1.49 H (0.52-1.04) mg/dL Glucose 261 H (74-99) mg/dL POC Glucose (mg/dL) (70-110) mg/dL Total Protein (6.3-8.2) g/dL Albumin (3.5-5.0) g/dL Urine Glucose (UA) 2+ H (Negative) 06/18/25 06/18/25 06/18/25 Range/Units 05:35 05:35 06:10 RBC 3.18 L (4.10-5.20) 10*6/uL Hgb 9.8 L D (12.0-15.0) g/dL Hct 28.8 L (37.2-46.3) % Lymphocytes # 0.84 L (0.90-5.00) 10*3/uL Sodium 136 L (137-145) mmol/L BUN 33 H (7-17) mg/dL Creatinine 1.57 H (0.52-1.04) mg/dL Glucose 299 H (74-99) mg/dL POC Glucose (mg/dL) 355 H (70-110) mg/dL Total Protein 5.6 L (6.3-8.2) g/dL Albumin 3.2 L (3.5-5.0) g/dL Urine Glucose (UA) (Negative) 06/18/25 Range/Units 11:35 RBC (4.10-5.20) 10*6/uL Hgb (12.0-15.0) g/dL Hct (37.2-46.3) % Lymphocytes # (0.90-5.00) 10*3/uL Sodium (137-145) mmol/L BUN (7-17) mg/dL Creatinine (0.52-1.04) mg/dL Glucose (74-99) mg/dL POC Glucose (mg/dL) 270 H (70-110) mg/dL Total Protein (6.3-8.2) g/dL Albumin (3.5-5.0) g/dL Urine Glucose (UA) (Negative) Thrombosis Risk Factor Assmnt - Choose All That Apply Any of the Below Risk Factors Present?: Yes Each Factor Represents 1 point: Swollen legs (current) Each Risk Factor Represents 3 Points: Age 75 years or older Thrombosis Risk Factor Assessment Total Risk Factor Score: 4 Thrombosis Risk Factor Assessment Level: Moderate Risk Assessment and Plan Assessment: Left hip pain/neck pain X-ray of the hip is negative for any acute osseous abnormality -CT of the left hip does not reveal any acute fracture or dislocation CT of the head does not reveal any acute intracranial process CT of the cervical spine is negative for any acute fractures or traumatic subluxation of cervical spine - Will consult PT/OT Weakness/debility; consult PT OT for possible placement LUCIAN; IV fluid hydration; monitor strict SANTIAGO's, daily weights, renal function electrolyte; avoid nephrotoxins and hypotension Hypertension; Imdur 60 mg daily, metoprolol 25 mg twice daily Hyperlipidemia; Lipitor 40 mg daily Diabetes mellitus with long-term insulin use; Lantus 6 units subcu daily; monitor Accu-Cheks before every meal and at bedtime with insulin sliding scale CAD/CHF; continue home dose of Imdur 60 mg daily, aspirin 81 mg daily, Lipitor 40 mg daily and metoprolol 12.5 mg twice daily DVT prophylaxis; SCDs CODE STATUS; full code
[2025-06-18 16:48] LABS: Glucose,Whole Blood 421 mg/dL (70-110)
[2025-06-18] MEDS: INSULIN LISPRO (HumaLOG) 100 UNIT/ML 10 mL VL SQ SCH (17:37)
[2025-06-18 20:03] LABS: Glucose,Whole Blood 131 mg/dL (70-110)
[2025-06-18 20:49] LABS: Glucose,Whole Blood 113 mg/dL (70-110)
[2025-06-18] MEDS: hydrOXYzine HCL 25 MG TAB PO SCH (21:00)
[2025-06-19] LABS: Glucose,Whole Blood 222 mg/dL (70-110)
[2025-06-19] MEDS: ONDANSETRON 4 MG/2 ML VIAL IVP PRN (01:27)
[2025-06-19] MEDS ORDERED: HYDROmorphone 0.5 MG/0.5 ML SYRINGE IM PRN (04:33)
[2025-06-19] MEDS: HYDROmorphone 0.5 MG/0.5 ML SYRINGE IVP PRN (04:38)
[2025-06-19 06:11] LABS: Glucose,Whole Blood 296 mg/dL (70-110)
[2025-06-19] MEDS: INSULIN GLARGINE (LANTUS) 100 UNIT/ML SYR SQ SCH (06:37)
[2025-06-19 07:46] LABS: Basophils # (A) 0.02 X 10*3/uL (0.00-0.10); Basophils % (A) 0.3 %; Eosinophils # (A) 0.18 X 10*3/uL (0.04-0.35); Eosinophils % (A) 2.4 %; HCT 30.4 % (37.2-46.3); HGB 9.7 g/dL (12.0-15.0); Immature Grans, Automated 0.10 %; Lymphocytes # (A) 0.50 X 10*3/uL (0.90-5.00); Lymphocytes % (A) 6.7 %; MCH 29.3 pg (27.0-32.0); MCHC 31.9 g/dL (32.0-37.0); MCV 91.8 FL (80.0-97.0); Monocytes # (A) 0.91 X 10*3/uL (0.20-1.00); Monocytes % (A) 12.2 %; NRBC Per 100 WBC 0 X 10*3/uL (0.00-0.01); Neutrophils # (A) 5.84 X 10*3/uL (1.80-7.70); Neutrophils % (A) 78.3 %; Platelet Count 155 X 10*3/uL (140-440); RBC 3.31 X 10*6/uL (4.10-5.20); RDW 12.8 % (11.5-14.5); WBC 7.46 X 10*3/uL (4.50-10.00)
[2025-06-19 09:30] LABS: Anion Gap 14.20 mmol/L (4.00-12.00); BUN/Creat Ratio 21.89 Ratio (12.00-20.00); Blood Urea Nitrogen 39.4 mg/dL (9.0-27.0); Calcium 8.5 mg/dL (8.7-10.3); Carbon Dioxide 23.8 mmol/L (21.6-31.8); Chloride 101 mmol/L (96-109); Ferritin 68.2 ng/mL (10.0-291.0); Glucose 257 mg/dL (70-110); Iron 28 UG/DL (50-170); Potassium 4.5 mmol/L (3.5-5.5); Sodium 139 mmol/L (135-145); Total Iron Binding Capacity 290 UG/DL (228-460); Vitamin B12 293.0 pg/mL (200.0-944.0)
[2025-06-19] MEDS: FUROSEMIDE 40 MG TAB PO SCH (10:11)
[2025-06-19] MEDS: ASPIRIN 81 MG PO SCH (10:11)
[2025-06-19 11:18] LABS: Glucose,Whole Blood 232 mg/dL (70-110)
[2025-06-19] MEDS: Acetaminophen-Codeine 300-30mg TAB PO STA (12:44)
--- NOTE | 2025-06-19 14:54 | P.GSCN ---
History of Present Illness Consult date: 06/19/25 History of present illness: CHIEF COMPLAINT: Neck and back pain HISTORY OF PRESENT ILLNESS: This is a 84-year-old female presented the hospital with complaints of headache, neck pain and back pain. Patient was found to be anemic. Hemoglobin on admission 11.3 down to 9.7. Patient is blind. Per nursing staff there has been no blood in her stools or emesis. Patient reports no bowel movement for 3 days. She does report vomiting a large amount last night. But nursing reports no record of vomiting. She denies any abdominal pain. She is not on any blood thinners. She has never had a EGD. Last colonoscopy was several years ago. PAST MEDICAL HISTORY: Atrial Fibrillation, Coronary Artery Disease (CAD), Chest Pain / Angina, Heart Failure, Diabetes Mellitus, Eye Disorder, GERD/Reflux, Hypertension, Neurologic Disorder, Osteoarthritis (OA), Syncope, heart attack, SEVERAL ABD HERNIAS, MULTIPLE UTI'S,HERNIATED DISC, PAST BROKEN ANKLE(LT), NUMBNESS LOWER FINGERS. PAST SURGICAL HISTORY: Appendectomy, Cholecystectomy, Heart Catheterization, Hernia Repair MEDICATIONS: See below ALLERGIES: See below SOCIAL HISTORY: No illicit drug use. REVIEW OF SYSTEMS: CONSTITUTIONAL: Denies fever or chills. HEENT: Denies blurred vision, vision changes, or eye pain. Denies hemoptysis CARDIOVASCULAR: Denies chest pain or pressure. RESPIRATORY: No shortness of breath. GASTROINTESTINAL: See HPI for pertinent findings HEMATOLOGIC: Denies bleeding disorders. GENITOURINARY: Denies any blood in urine or increased urinary frequency. SKIN: Denies pruitis. Denies rash. PHYSICAL EXAM: VITAL SIGNS: Reviewed GENERAL: Well-developed in no acute distress. Legally blind HEENT: No sclera icterus. Extraocular movements grossly intact. Moist buccal mucosa. Head is atraumatic, normocephalic. No nasal drainage. ABDOMEN: Soft. Obese. Nondistended. Nontender NEUROLOGIC: Alert and oriented. Cranial nerves II through XII grossly intact. LABORATORY DATA: WBC 7.46 Hgb 11.3 down to 9.7 plt 155 Na 139 K.5 cr 1.8 Iron low at 28 IMAGING: CT scan of head and cervical spine negative ASSESSMENT: 1. Anemia with no active bleeding 2. Iron deficiency noted PLAN: - Recommend EGD and colonoscopy outpatient - Repeat hemoglobin in a.m. - Continue to monitor for any signs or symptoms of bleeding - Recommend starting iron supplement Physician Runner Worker note has been reviewed by physician. Signing provider agrees with the documented findings, assessment, and plan of care. Past Medical History Past Medical History: Atrial Fibrillation, Coronary Artery Disease (CAD), Chest Pain / Angina, Heart Failure, Diabetes Mellitus, Eye Disorder, GERD/Reflux, Hypertension, Neurologic Disorder, Osteoarthritis (OA), Syncope Additional Past Medical History / Comment(s): C/O "LT EYE ITCHING AND PUFFIN ESS"DIABETIC RETINOPATHY- HAD MULTIPLE LASER SX BUT ISLEGALLY BLIND, PASTCARDIAC ARREST-SON STATED PT HAD 2 HEART ATTACKS", NUMBNESS TO FINGERS , PAST FALL D/T SYNCOPE-BROKE LT ANKLE-WORE A BOOT. ANKLE SWELLING. "VERY SENSATIVE TO BP MEDS", SEVERAL ABD HERNIAS, MULTIPLE UTI'S,HERNIATED DISC, PAST BROKEN ANKLE(LT), NUMBNESS LOWER FINGERS. PT HAS AN IDENTICAL TWIN SISTER THAT ALSO IS BLIND D/T RETINOPATHY History of Any Multi-Drug Resistant Organisms: None Reported Past Surgical History: Appendectomy, Cholecystectomy, Heart Catheterization, Hernia Repair Additional Past Surgical History / Comment(s): MULTIPLE EYE SURGERIES, LOOP RECORDER , COLONOSCOPY Past Anesthesia/Blood Transfusion Reactions: No Reported Reaction Past Psychological History: Depression Additional Psychological History / Comment(s): PT'S SON LIVES WITH HER .BETWEEN SON AND DAUGHTER THEY CARE FOR PT. PT USES A CANE INSIDE HOME AND WALKER WHEN OUTSIDE. PAST FALLS. NO OTHER OUTSIDE SERVICES RECIEVED. HAS BERTA READER,GLUCOSE MONITOR, CANE/WALKER. BARS ON BED AND IN BATHROOM. Smoking Status: Heavy tobacco smoker Past Alcohol Use History: None Reported Past Drug Use History: None Reported - Past Family History Mother Family Medical History: No Reported History Additional Family Medical History / Comment(s): FROM COMPLICATIONS OF A SURGURY WHEN PT WAS 4 YEARS OLD. Father Family Medical History: Dementia Additional Family Medical History / Comment(s): AT AGE 88 FROM [place] Brother(s) Family Medical History: Dementia Son(s) Family Medical History: Diabetes Mellitus Daughter(s) Family Medical History: Diabetes Mellitus Sister(s) Family Medical History: Diabetes Mellitus, Hypertension, Myocardial Infarction ([place]) Additional Family Medical History / Comment(s): Breast cancer. Her niece also had breast cancer. Another sister had lung cancer. Medications and Allergies Home Medications Medication Instructions Recorded Confirmed Type Metoprolol Tartrate [Lopressor] 12.5 mg PO BID 04/25/19 06/17/25 History Isosorbide Mononitrate ER [Imdur] 60 mg PO DAILY 12/21/19 06/17/25 History ALPRAZolam [Xanax] 0.25 mg PO DAILY PRN 06/17/25 06/17/25 History Aspirin [Adult Low Dose Aspirin EC] 81 mg PO DAILY 06/17/25 06/17/25 History Atorvastatin [Lipitor] 40 mg PO DAILY 06/17/25 06/19/25 History Clobetasol Propionate [Temovate 1 applic TOPICAL DAILY PRN 06/17/25 06/17/25 History 0.05% Oint] Furosemide [Lasix] 40 mg PO DAILY 06/17/25 06/17/25 History Insulin Glargine,Hum.rec.anlog 6 units SQ DAILY 06/17/25 06/17/25 History [Lantus Solostar Pen] Insulin NPH Hum/Reg Insulin Hm 6 unit SQ HS PRN 06/17/25 06/17/25 History [NovoLIN 70-30 100 UNIT/ML VIAL] Nitroglycerin Sl Tabs [Nitrostat] 0.4 mg SL Q5M PRN 06/17/25 06/17/25 History hydrOXYzine HCL [Atarax] 25 mg PO BID 06/17/25 06/17/25 History Nystatin/Triamcin Cream [Mycolog 1 applic TOPICAL BID PRN 06/19/25 06/19/25 History Cream -- 100,000-0.1 Unit/gm-%] Allergies Allergy/AdvReac Type Severity Reaction Status Date / Time iodine Allergy Wheezing Verified 06/17/25 19:46 amoxicillin trihydrate AdvReac Nausea & Verified 06/17/25 19:46 [From Augmentin] Vomiting potassium clavulanate AdvReac Nausea & Verified 06/17/25 19:46 [From Augmentin] Vomiting vancomycin AdvReac Unknown Verified 06/17/25 19:46 Surgical - Exam Vital Signs Pulse Resp BP Pulse Ox 90 19 159/77 98 06/17/25 18:14 06/17/25 18:14 06/17/25 18:14 06/17/25 18:14 Results - Labs 06/19/25 02:57 06/19/25 02:57 Abnormal Lab Results - Last 24 Hours (Table) 06/18/25 06/18/25 06/18/25 Range/Units 16:46 20:02 20:48 RBC (4.10-5.20) X 10*6/uL Hgb (12.0-15.0) g/dL Hct (37.2-46.3) % MCHC (32.0-37.0) g/dL Lymphocytes # (0.90-5.00) X 10*3/uL Anion Gap (4.00-12.00) mmol/L BUN (9.0-27.0) mg/dL Creatinine (0.6-1.5) mg/dL Est GFR (CKD-EPI) (>=60) BUN/Creatinine Ratio (12.00-20.00) Ratio Glucose (70-110) mg/dL POC Glucose (mg/dL) 421 H 131 H 113 H (70-110) mg/dL Calcium (8.7-10.3) mg/dL Iron (50-170) UG/DL % Saturation (12.00-45.00) 06/18/25 06/19/25 06/19/25 Range/Units 23:59 02:57 02:57 RBC 3.31 L (4.10-5.20) X 10*6/uL Hgb 9.7 L (12.0-15.0) g/dL Hct 30.4 L (37.2-46.3) % MCHC 31.9 L (32.0-37.0) g/dL Lymphocytes # 0.50 L (0.90-5.00) X 10*3/uL Anion Gap 14.20 H (4.00-12.00) mmol/L BUN 39.4 H (9.0-27.0) mg/dL Creatinine 1.8 H (0.6-1.5) mg/dL Est GFR (CKD-EPI) 27 L (>=60) BUN/Creatinine Ratio 21.89 H (12.00-20.00) Ratio Glucose 257 H (70-110) mg/dL POC Glucose (mg/dL) 222 H (70-110) mg/dL Calcium 8.5 L (8.7-10.3) mg/dL Iron 28 L (50-170) UG/DL % Saturation 9.66 L (12.00-45.00) 06/19/25 06/19/25 Range/Units 06:09 11:17 RBC (4.10-5.20) X 10*6/uL Hgb (12.0-15.0) g/dL Hct (37.2-46.3) % MCHC (32.0-37.0) g/dL Lymphocytes # (0.90-5.00) X 10*3/uL Anion Gap (4.00-12.00) mmol/L BUN (9.0-27.0) mg/dL Creatinine (0.6-1.5) mg/dL Est GFR (CKD-EPI) (>=60) BUN/Creatinine Ratio (12.00-20.00) Ratio Glucose (70-110) mg/dL POC Glucose (mg/dL) 296 H 232 H (70-110) mg/dL Calcium (8.7-10.3) mg/dL Iron (50-170) UG/DL % Saturation (12.00-45.00) Diabetes panel 06/19/25 Range/Units 02:57 Sodium 139 (135-145) mmol/L Potassium 4.5 (3.5-5.5) mmol/L Chloride 101 (96-109) mmol/L Carbon Dioxide 23.8 (21.6-31.8) mmol/L BUN 39.4 H (9.0-27.0) mg/dL Creatinine 1.8 H (0.6-1.5) mg/dL Glucose 257 H (70-110) mg/dL Calcium 8.5 L (8.7-10.3) mg/dL Calcium panel 06/19/25 Range/Units 02:57 Calcium 8.5 L (8.7-10.3) mg/dL Pituitary panel 06/19/25 Range/Units 02:57 Sodium 139 (135-145) mmol/L Potassium 4.5 (3.5-5.5) mmol/L Chloride 101 (96-109) mmol/L Carbon Dioxide 23.8 (21.6-31.8) mmol/L BUN 39.4 H (9.0-27.0) mg/dL Creatinine 1.8 H (0.6-1.5) mg/dL Glucose 257 H (70-110) mg/dL Calcium 8.5 L (8.7-10.3) mg/dL Adrenal panel 06/19/25 Range/Units 02:57 Sodium 139 (135-145) mmol/L Potassium 4.5 (3.5-5.5) mmol/L Chloride 101 (96-109) mmol/L Carbon Dioxide 23.8 (21.6-31.8) mmol/L BUN 39.4 H (9.0-27.0) mg/dL Creatinine 1.8 H (0.6-1.5) mg/dL Glucose 257 H (70-110) mg/dL Calcium 8.5 L (8.7-10.3) mg/dL
[2025-06-19 16:34] LABS: Glucose,Whole Blood 342 mg/dL (70-110)
[2025-06-19 20:14] LABS: Glucose,Whole Blood 272 mg/dL (70-110)
--- NOTE | 2025-06-19 20:16 | P.PN ---
Subjective 84-year-old female, history of hypertension, atrial fibrillation, CAD, CHF, diabetes mellitus, osteoarthritis, presents to the ER for headache and neck pain worsening neck pain so she twisted her neck in the wrong direction. Patient said pain ever since 3 to 4 days of neck pain. Patient is very vague and poor historian; not able to tell anything about the said complaint of pain - Reports he is not able to manage by herself at home Blood work completed in ED reveals WBC of 5.88, hemoglobin of 11.3 and platelet count of 179, sodium 136, potassium 4.4, BUN/creatinine of 33/1.49 and blood glucose of 261 UA is unremarkable X-ray of the hip is negative for any acute osseous abnormality -CT of the left hip does not reveal any acute fracture or dislocation CT of the head does not reveal any acute intracranial process CT of the cervical spine is negative for any acute fractures or traumatic subluxation of cervical spine 06/19 Patient is awake alert sitting in chair looks comfortable Presents because of neck pain but now pain significantly improved She still generally weak She is concerns also about her left leg wound not sure if she complaining from weakness or pain. both legs are covered with jojo bandage Patient denies any blood in the sputum or rectum or urine She is getting normal saline 75 mL/h but we can lowered to 50 Labs reviewed Patient did not sleep well last night till production consultant Patient states that at home she fell twice But patient cannot remember exact details. Active Medications Generic Name Dose Route Start Last Admin Trade Name Freq PRN Reason Stop Dose Admin Acetaminophen/Codeine Phosphate 1 each 06/19/25 12:32 Acetaminophen-Codeine 300-30mg Tab PO Q6HR PRN Pain Alprazolam 0.25 mg 06/18/25 11:55 Alprazolam 0.25 Mg Tab PO DAILY PRN Anxiety Aspirin 81 mg 06/19/25 09:00 06/19/25 10:11 Aspirin 81 Mg PO 81 mg DAILY SAVITA Administration Atorvastatin Calcium 40 mg 06/18/25 12:00 06/19/25 10:11 Atorvastatin 40 Mg Tab PO 40 mg DAILY SAVITA Administration Furosemide 40 mg 06/19/25 09:00 06/19/25 10:11 Furosemide 40 Mg Tab PO 40 mg DAILY SAVITA Administration Hydromorphone HCl 1 mg 06/17/25 22:25 Hydromorphone 1 Mg/Ml 1 Ml Syringe IVP Q3HR PRN Moderate Pain (Scale 4 to 6) Hydromorphone HCl 0.5 mg 06/19/25 04:40 Hydromorphone 0.5 Mg/0.5 Ml Syringe IVP Q4HR PRN Pain Hydroxyzine HCl 25 mg 06/18/25 21:00 06/19/25 10:11 Hydroxyzine Hcl 25 Mg Tab PO 25 mg BID SAVITA Administration Sodium Chloride 1,000 mls @ 75 mls/hr 06/17/25 22:30 06/19/25 17:22 Saline 0.9% IV 75 mls/hr .[id number] SAVITA Administration Insulin Glargine 15 unit 06/19/25 07:00 06/19/25 06:37 Insulin Glargine (Lantus) 100 Unit/Ml Syr SQ 15 unit DAILY@0700 SAVITA Administration Insulin Human Lispro 0 unit 06/18/25 17:30 06/19/25 17:22 Insulin Lispro (Humalog) 100 Unit/Ml 10 Ml Vl SQ 8 unit ACHS SAVITA Administration Protocol Isosorbide Mononitrate 60 mg 06/18/25 12:00 06/19/25 10:11 Isosorbide Mononitrate Er 60 Mg Tab.Er.24h PO 60 mg DAILY SAVITA Administration Metoprolol Tartrate 12.5 mg 06/18/25 12:00 06/19/25 10:11 Metoprolol Tartrate 12.5 Mg Tab PO 12.5 mg BID SAVITA Administration Naloxone HCl 0.2 mg 06/17/25 22:25 Naloxone 0.4 Mg/Ml 1 Ml Vial IV Q2M PRN Opioid Reversal Ondansetron HCl 4 mg 06/17/25 22:25 06/19/25 01:27 Ondansetron 4 Mg/2 Ml Vial IVP 4 mg Q8HR PRN Administration Nausea And Vomiting Objective - Vital Signs Vital signs: Vital Signs Temp 97.8 F 06/19/25 07:18 Pulse 70 06/19/25 10:15 Resp 16 06/19/25 10:15 BP 109/65 06/19/25 07:18 Pulse Ox 98 06/19/25 07:18 FiO2 Intake & Output 06/18/25 06/19/25 06/19/25 18:59 06:59 18:59 Intake Total 1800 Output Total 100 625 Balance 1700 -625 Intake: Oral 1800 Output: Urine 100 625 Other: Voiding Method External Catheter Bedside Commode External Catheter # Voids 3 2 - Exam -GENERAL: The patient is alert and oriented x3, not in any acute distress. Morbidly obese. Generally weak. HEENT: Pupils are round and equally reacting to light. EOMI. No scleral icterus. No conjunctival pallor. Normocephalic, atraumatic. No pharyngeal erythema. No thyromegaly. CARDIOVASCULAR: S1 and S2 present. No murmurs, rubs, or gallops. PULMONARY: Chest is clear to auscultation, no wheezing , no crackles. ABDOMEN: Soft, nontender, nondistended, normoactive bowel sounds. No palpable organomegaly. MUSCULOSKELETAL: No joint swelling or deformity. EXTREMITIES: No cyanosis, clubbing, or pedal edema. NEUROLOGICAL: Gross neurological examination did not reveal any focal deficits. SKIN: No rashes. no petechiae. - Labs CBC & Chem 7: 06/19/25 02:57 06/19/25 02:57 Labs: Abnormal Lab Results - Last 24 Hours (Table) 06/18/25 06/18/25 06/18/25 Range/Units 16:46 20:02 20:48 RBC (4.10-5.20) X 10*6/uL Hgb (12.0-15.0) g/dL Hct (37.2-46.3) % MCHC (32.0-37.0) g/dL Lymphocytes # (0.90-5.00) X 10*3/uL Anion Gap (4.00-12.00) mmol/L BUN (9.0-27.0) mg/dL Creatinine (0.6-1.5) mg/dL Est GFR (CKD-EPI) (>=60) BUN/Creatinine Ratio (12.00-20.00) Ratio Glucose (70-110) mg/dL POC Glucose (mg/dL) 421 H 131 H 113 H (70-110) mg/dL Calcium (8.7-10.3) mg/dL Iron (50-170) UG/DL % Saturation (12.00-45.00) 06/18/25 06/19/25 06/19/25 Range/Units 23:59 02:57 02:57 RBC 3.31 L (4.10-5.20) X 10*6/uL Hgb 9.7 L (12.0-15.0) g/dL Hct 30.4 L (37.2-46.3) % MCHC 31.9 L (32.0-37.0) g/dL Lymphocytes # 0.50 L (0.90-5.00) X 10*3/uL Anion Gap 14.20 H (4.00-12.00) mmol/L BUN 39.4 H (9.0-27.0) mg/dL Creatinine 1.8 H (0.6-1.5) mg/dL Est GFR (CKD-EPI) 27 L (>=60) BUN/Creatinine Ratio 21.89 H (12.00-20.00) Ratio Glucose 257 H (70-110) mg/dL POC Glucose (mg/dL) 222 H (70-110) mg/dL Calcium 8.5 L (8.7-10.3) mg/dL Iron 28 L (50-170) UG/DL % Saturation 9.66 L (12.00-45.00) 06/19/25 06/19/25 Range/Units 06:09 11:17 RBC (4.10-5.20) X 10*6/uL Hgb (12.0-15.0) g/dL Hct (37.2-46.3) % MCHC (32.0-37.0) g/dL Lymphocytes # (0.90-5.00) X 10*3/uL Anion Gap (4.00-12.00) mmol/L BUN (9.0-27.0) mg/dL Creatinine (0.6-1.5) mg/dL Est GFR (CKD-EPI) (>=60) BUN/Creatinine Ratio (12.00-20.00) Ratio Glucose (70-110) mg/dL POC Glucose (mg/dL) 296 H 232 H (70-110) mg/dL Calcium (8.7-10.3) mg/dL Iron (50-170) UG/DL % Saturation (12.00-45.00) Assessment and Plan Assessment: Fall at home few days and weeks earlier Left hip pain/neck pain Weakness/debility LUCIAN Possible fluid overload Hypertension; Hyperlipidemia Diabetes mellitus with long-term insulin use Acute on chronic CHF, systolic with ejection fraction 40 to 45% with acute exacerbation Coronary artery disease DVT prophylaxis; SCDs CODE STATUS; full code Plan: Continue monitoring hemoglobin Will do anemia workup and occult blood in stool General Surgery consult. There is no GI team in this facility during this week Acute kidney injury worsened therefore discontinued IV fluid and give small dose of IV Lasix 20 mg today and continue to the oral Lasix 4 mg daily. Monitor creatinine if continue to worsen tomorrow consider nephrology consult. Check a bladder scan Pain management Labs and medication were reviewed.. Continue same treatment. Continue with symptomatic treatment. Resume home medication. Monitor labs and vitals. DVT and GI prophylaxis. Further recommendations as per clinical course of the patient DVT prophylaxis: Subcutaneous heparin GI Prophylaxis: Pepcid PT/OT: Pending Prognosis is guarded
[2025-06-19] MEDS: HEPARIN SODIUM,PORCINE 5,000 UNIT/ML 1 ML VIAL SQ SCH (21:27)
[2025-06-19] MEDS: FAMOTIDINE 20 MG/2 ML VIAL IV SCH (21:27)
[2025-06-19] MEDS: FUROSEMIDE 10 MG/ML 2 ML VIAL IV ONE (21:27)
[2025-06-20] MEDS: Acetaminophen-Codeine 300-30mg TAB PO PRN (01:59)
[2025-06-20 03:56] LABS: Basophils # (A) 0.01 10*3/uL (0.00-0.10); Basophils % (A) 0.2 %; Eosinophils # (A) 0.27 10*3/uL (0.04-0.35); Eosinophils % (A) 4.8 %; HCT 26.8 % (37.2-46.3); HGB 9.0 g/dL (12.0-15.0); Lymphocytes # (A) 0.79 10*3/uL (0.90-5.00); Lymphocytes % (A) 13.9 %; MCH 30.8 pg (27.0-32.0); MCHC 33.6 g/dL (32.0-37.0); MCV 91.8 fL (80.0-97.0); Monocytes # (A) 0.70 10*3/uL (0.20-1.00); Monocytes % (A) 12.3 %; Neutrophils # (A) 3.90 10*3/uL (1.80-7.70); Neutrophils % (A) 68.6 %; Platelet Count 148 10*3/uL (140-440); RBC 2.92 10*6/uL (4.10-5.20); RDW 13.0 % (11.5-14.5); WBC 5.68 10*3/uL (4.50-10.00)
[2025-06-20 06:13] LABS: Glucose,Whole Blood 197 mg/dL (70-110)
[2025-06-20 08:20] LABS: Anion Gap 9.50 mmol/L (4.00-12.00); BUN/Creat Ratio 19.65 Ratio (12.00-20.00); Blood Urea Nitrogen 39.3 mg/dL (9.0-27.0); Calcium 8.2 mg/dL (8.7-10.3); Carbon Dioxide 27.5 mmol/L (21.6-31.8); Chloride 104 mmol/L (96-109); Glucose 190 mg/dL (70-110); Potassium 4.2 mmol/L (3.5-5.5); Sodium 141 mmol/L (135-145)
--- NOTE | 2025-06-20 10:10 | P.PN ---
Subjective Progress Note Date: 06/20/25 SURGICAL PROGRESS NOTE CHIEF COMPLAINT: Neck and back pain HISTORY OF PRESENT ILLNESS: Surgical service following in regards to patient's anemia. Nursing staff reports no bowel movement. Patient has had no bleeding noted from rectum. Hemoglobin stable at 9.0. She complains mostly of back neck and hip pain today. She is sitting at bedside chair. Denies any abdominal pain. Denies any nausea or vomiting. PHYSICAL EXAM: VITAL SIGNS: Reviewed. GENERAL: Well-developed in no acute distress. ABDOMEN: Soft. Nondistended. Nontender. NEUROLOGIC: Alert and oriented. Cranial nerves II through XII grossly intact. ASSESSMENT: 1. Anemia with no active bleeding 2. Iron deficiency noted PLAN: - Recommend EGD and colonoscopy outpatient - Continue to monitor for any signs or symptoms of bleeding - Recommend iron supplement Physician Street Vendor note has been reviewed by physician. Signing provider agrees with the documented findings, assessment, and plan of care. Objective - Vital Signs Vital signs: Vital Signs Temp 97.6 F 06/20/25 07:56 Pulse 67 06/20/25 07:56 Resp 17 06/20/25 07:56 BP 105/61 06/20/25 07:56 Pulse Ox 99 06/20/25 07:56 FiO2 Intake & Output 06/19/25 06/20/25 06/20/25 18:59 06:59 18:59 Output Total 800 600 Balance -800 -600 Output: Urine 800 600 Other: Voiding Method Bedside Commode External Catheter # Voids 1 - Labs CBC & Chem 7: 06/20/25 03:04 06/20/25 03:04 Labs: Abnormal Lab Results - Last 24 Hours (Table) 06/19/25 06/19/25 06/19/25 Range/Units 11:17 16:33 20:12 RBC (4.10-5.20) 10*6/uL Hgb (12.0-15.0) g/dL Hct (37.2-46.3) % Lymphocytes # (0.90-5.00) 10*3/uL BUN (9.0-27.0) mg/dL Creatinine (0.6-1.5) mg/dL Est GFR (CKD-EPI) (>=60) Glucose (70-110) mg/dL POC Glucose (mg/dL) 232 H 342 H 272 H (70-110) mg/dL Calcium (8.7-10.3) mg/dL 06/20/25 06/20/25 06/20/25 Range/Units 03:04 03:04 06:12 RBC 2.92 L (4.10-5.20) 10*6/uL Hgb 9.0 L (12.0-15.0) g/dL Hct 26.8 L (37.2-46.3) % Lymphocytes # 0.79 L (0.90-5.00) 10*3/uL BUN 39.3 H (9.0-27.0) mg/dL Creatinine 2.0 H (0.6-1.5) mg/dL Est GFR (CKD-EPI) 24 L (>=60) Glucose 190 H (70-110) mg/dL POC Glucose (mg/dL) 197 H (70-110) mg/dL Calcium 8.2 L (8.7-10.3) mg/dL
[2025-06-20 11:26] LABS: Glucose,Whole Blood 298 mg/dL (70-110)
[2025-06-20 16:24] LABS: Glucose,Whole Blood 198 mg/dL (70-110)
--- NOTE | 2025-06-20 19:48 | P.PN ---
Subjective 84-year-old female, history of hypertension, atrial fibrillation, CAD, CHF, diabetes mellitus, osteoarthritis, presents to the ER for headache and neck pain worsening neck pain so she twisted her neck in the wrong direction. Patient said pain ever since 3 to 4 days of neck pain. Patient is very vague and poor historian; not able to tell anything about the said complaint of pain - Reports he is not able to manage by herself at home Blood work completed in ED reveals WBC of 5.88, hemoglobin of 11.3 and platelet count of 179, sodium 136, potassium 4.4, BUN/creatinine of 33/1.49 and blood glucose of 261 UA is unremarkable X-ray of the hip is negative for any acute osseous abnormality -CT of the left hip does not reveal any acute fracture or dislocation CT of the head does not reveal any acute intracranial process CT of the cervical spine is negative for any acute fractures or traumatic subluxation of cervical spine 06/19 Patient is awake alert sitting in chair looks comfortable Presents because of neck pain but now pain significantly improved She still generally weak She is concerns also about her left leg wound not sure if she complaining from weakness or pain. both legs are covered with jojo bandage Patient denies any blood in the sputum or rectum or urine She is getting normal saline 75 mL/h but we can lowered to 50 Labs reviewed Patient did not sleep well last night till administrative support coordinator Patient states that at home she fell twice But patient cannot remember exact details. 06/20 Left hip pain to left leg still there However it is improving Patient currently able to move her leg which she could not do prior Creatinine went up to 2.0. IV fluids stopped. Nephrology team consulted Neurology also evaluated patient for her symptoms of weakness following and other neurological symptoms. General surgery recommend outpatient workup with EGD and colonoscopy as patient hemoglobin is stable Active Medications Acetaminophen/Codeine Phosphate (Acetaminophen-Codeine 300-30mg Tab) 1 each PO Q6HR PRN PRN Reason: Pain Last Admin: 06/20/25 13:21 Dose: 1 each Alprazolam (Alprazolam 0.25 Mg Tab) 0.25 mg PO DAILY PRN PRN Reason: Anxiety Aspirin (Aspirin 81 Mg) 81 mg PO DAILY SAVITA Last Admin: 06/20/25 09:50 Dose: 81 mg Atorvastatin Calcium (Atorvastatin 40 Mg Tab) 40 mg PO DAILY SAVITA Last Admin: 06/20/25 09:50 Dose: 40 mg Famotidine (Famotidine 20 Mg Tab) 20 mg PO DAILY [facility] Furosemide (Furosemide 40 Mg Tab) 40 mg PO DAILY [facility] Last Admin: 06/20/25 09:50 Dose: 40 mg Heparin Sodium (Porcine) (Heparin Sodium,Porcine 5,000 Unit/Ml 1 Ml Vial) 5,000 unit SQ Q12HR [facility] Last Admin: 06/20/25 09:49 Dose: 5,000 unit Hydromorphone HCl (Hydromorphone 1 Mg/Ml 1 Ml Syringe) 1 mg IVP Q3HR PRN PRN Reason: Moderate Pain (Scale 4 to 6) Hydromorphone HCl (Hydromorphone 0.5 Mg/0.5 Ml Syringe) 0.5 mg IVP Q4HR PRN PRN Reason: Pain Hydroxyzine HCl (Hydroxyzine Hcl 25 Mg Tab) 25 mg PO BID [facility] Last Admin: 06/20/25 09:49 Dose: 25 mg Insulin Glargine (Insulin Glargine (Lantus) 100 Unit/Ml Syr) 15 unit SQ DAILY@0700 [facility] Last Admin: 06/20/25 06:44 Dose: 15 unit Insulin Human Lispro (Insulin Lispro (Humalog) 100 Unit/Ml 10 Ml Vl) 0 unit SQ ACHS [facility]; Protocol Last Admin: 06/20/25 18:23 Dose: 2 unit Isosorbide Mononitrate (Isosorbide Mononitrate Er 60 Mg Tab.Er.24h) 60 mg PO DAILY [facility] Last Admin: 06/20/25 09:50 Dose: 60 mg Metoprolol Tartrate (Metoprolol Tartrate 12.5 Mg Tab) 12.5 mg PO BID [facility] Last Admin: 06/20/25 09:50 Dose: 12.5 mg Naloxone HCl (Naloxone 0.4 Mg/Ml 1 Ml Vial) 0.2 mg IV Q2M PRN PRN Reason: Opioid Reversal Ondansetron HCl (Ondansetron 4 Mg/2 Ml Vial) 4 mg IVP Q8HR PRN PRN Reason: Nausea And Vomiting Last Admin: 06/19/25 01:27 Dose: 4 mg Objective - Vital Signs Vital signs: Vital Signs Temp 97.4 F L 06/20/25 14:00 Pulse 55 L 06/20/25 14:00 Resp 18 06/20/25 14:00 BP 112/55 07/22/25 14:00 Pulse Ox 98 06/20/25 14:00 FiO2 Intake & Output 06/20/25 06/20/25 06/21/25 06:59 18:59 06:59 Output Total 600 Balance -600 Output: Urine 600 Other: Voiding Method Bedside Commode Bedside Commode External Catheter External Catheter # Voids 1 750 - Exam -GENERAL: The patient is alert and oriented x3, not in any acute distress. Morbidly obese. Generally weak. HEENT: Pupils are round and equally reacting to light. EOMI. No scleral icterus. No conjunctival pallor. Normocephalic, atraumatic. No pharyngeal erythema. No thyromegaly. CARDIOVASCULAR: S1 and S2 present. No murmurs, rubs, or gallops. PULMONARY: Chest is clear to auscultation, no wheezing , no crackles. ABDOMEN: Soft, nontender, nondistended, normoactive bowel sounds. No palpable organomegaly. MUSCULOSKELETAL: No joint swelling or deformity. EXTREMITIES: No cyanosis, clubbing, or pedal edema. NEUROLOGICAL: Gross neurological examination did not reveal any focal deficits. SKIN: No rashes. no petechiae. - Labs CBC & Chem 7: 06/20/25 03:04 06/20/25 03:04 Labs: Abnormal Lab Results - Last 24 Hours (Table) 06/19/25 06/20/25 06/20/25 Range/Units 20:12 03:04 03:04 RBC 2.92 L (4.10-5.20) 10*6/uL Hgb 9.0 L (12.0-15.0) g/dL Hct 26.8 L (37.2-46.3) % Lymphocytes # 0.79 L (0.90-5.00) 10*3/uL BUN 39.3 H (9.0-27.0) mg/dL Creatinine 2.0 H (0.6-1.5) mg/dL Est GFR (CKD-EPI) 24 L (>=60) Glucose 190 H (70-110) mg/dL POC Glucose (mg/dL) 272 H (70-110) mg/dL Calcium 8.2 L (8.7-10.3) mg/dL 07/22/25 07/22/25 07/22/25 Range/Units 06:12 11:24 16:22 RBC (4.10-5.20) 10*6/uL Hgb (12.0-15.0) g/dL Hct (37.2-46.3) % Lymphocytes # (0.90-5.00) 10*3/uL BUN (9.0-27.0) mg/dL Creatinine (0.6-1.5) mg/dL Est GFR (CKD-EPI) (>=60) Glucose (70-110) mg/dL POC Glucose (mg/dL) 197 H 298 H 198 H (70-110) mg/dL Calcium (8.7-10.3) mg/dL Assessment and Plan Assessment: Fall at home few days and weeks earlier Left hip pain/neck pain Weakness/debility LUCIAN Possible fluid overload Hypertension; Hyperlipidemia Diabetes mellitus with long-term insulin use Acute on chronic CHF, systolic with ejection fraction 40 to 45% with acute exacerbation Coronary artery disease DVT prophylaxis; SCDs CODE STATUS; full code Plan: Continue monitoring hemoglobin Will do anemia workup and occult blood in stool General Surgery consult. There is no GI team in this facility during this week Acute kidney injury worsened therefore discontinued IV fluid and give small dose of IV Lasix 20 mg today and continue to the oral Lasix 4 mg daily. Monitor creatinine if continue to worsen tomorrow consider nephrology consult. Check a bladder scan Pain management Nephrology team consult Labs and medication were reviewed.. Continue same treatment. Continue with symptomatic treatment. Resume home medication. Monitor labs and vitals. DVT and GI prophylaxis. Further recommendations as per clinical course of the patient DVT prophylaxis: Subcutaneous heparin GI Prophylaxis: Pepcid PT/OT: Pending Prognosis is guarded
[2025-06-20 20:58] LABS: Glucose,Whole Blood 223 mg/dL (70-110)
[2025-06-20] MEDS: CYANOCOBALAMIN 1,000 MCG/ML 1 ML VIAL IM SCH (21:25)
[2025-06-21 06:25] LABS: Glucose,Whole Blood 207 mg/dL (70-110)
[2025-06-21] MEDS: FAMOTIDINE 20 MG TAB PO SCH (08:16)
--- NOTE | 2025-06-21 11:09 | P.NPCON ---
History of Present Illness - Reason for Consult acute renal failure - History of Present Illness Patient is an 84-year-old female with history of hypertension, coronary artery disease, CHF, type 2 diabetes and chronic kidney disease stage IIIb with baseline creatinine about 1.5 to 1.6 mg/dL secondary to nephrosclerosis. Patient is admitted to the hospital with complaints of pain in the neck and upper abdomen area. Patient denied any significant chest pain. She does state that her legs have been swollen and she takes diuretics. No recent worsening of swelling No significant urinary symptoms Serum creatinine was 1.49 on admission and increased to 2.0 today. Occasional low blood pressures with systolic around 109 to 105 mmHg. No other hypotension noted. Currently with external catheter. Maintained on oral Lasix at home UA is benign No nephrotoxic agents noted. Past Medical History Past Medical History: Atrial Fibrillation, Coronary Artery Disease (CAD), Chest Pain / Angina, Heart Failure, Diabetes Mellitus, Eye Disorder, GERD/Reflux, Hypertension, Neurologic Disorder, Osteoarthritis (OA), Syncope Additional Past Medical History / Comment(s): C/O "LT EYE ITCHING AND PUFFINESS"DIABETIC RETINOPATHY- HAD MULTIPLE LASER SX BUT ISLEGALLY BLIND, PASTCARDIAC ARREST-SON STATED PT HAD 2 HEART ATTACKS", NUMBNESS TO FINGERS , PA ST FALL D/T SYNCOPE-BROKE LT ANKLE-WORE A BOOT. ANKLE SWELLING. "VERY SENSATIVE TO BP MEDS", SEVERAL ABD HERNIAS, MULTIPLE UTI'S,HERNIATED DISC, PAST BROKEN ANKLE(LT), NUMBNESS LOWER FINGERS. PT HAS AN IDENTICAL TWIN SISTER THAT ALSO IS BLIND D/T RETINOPATHY History of Any Multi-Drug Resistant Organisms: None Reported Past Surgical History: Appendectomy, Cholecystectomy, Heart Catheterization, Hernia Repair Additional Past Surgical History / Comment(s): MULTIPLE EYE SURGERIES, LOOP RECORDER , COLONOSCOPY Past Anesthesia/Blood Transfusion Reactions: No Reported Reaction Past Psychological History: Depression Past Alcohol Use History: None Reported Past Drug Use History: None Reported - Past Family History Mother Family Medical History: No Reported History Additional Family Medical History / Comment(s): FROM COMPLICATIONS OF A NGUYỄN RGURY WHEN PT WAS 4 YEARS OLD. Father Family Medical History: Dementia Additional Family Medical History / Comment(s): AT AGE 88 FROM [place] Brother(s) Family Medical History: Dementia Son(s) Family Medical History: Diabetes Mellitus Daughter(s) Family Medical History: Diabetes Mellitus Sister(s) Family Medical History: Diabetes Mellitus, Hypertension, Myocardial Infarction ([place]) Additional Family Medical History / Comment(s): Breast cancer. Her niece also had breast cancer. Another sister had lung cancer. Medications and Allergies Home Medications Medication Instructions Recorded Confirmed Type Metoprolol Tartrate [Lopressor] 12.5 mg PO BID 04/25/19 06/17/25 History Isosorbide Mononitrate ER [Imdur] 60 mg PO DAILY 12/21/19 06/17/25 History ALPRAZolam [Xanax] 0.25 mg PO DAILY PRN 06/17/25 06/17/25 History Aspirin [Adult Low Dose Aspirin EC] 81 mg PO DAILY 06/17/25 06/17/25 History Atorvastatin [Lipitor] 40 mg PO DAILY 06/17/25 06/19/25 History Clobetasol Propionate [Temovate 1 applic TOPICAL DAILY PRN 06/17/25 06/17/25 History 0.05% Oint] Furosemide [Lasix] 40 mg PO DAILY 06/17/25 06/17/25 History Insulin Glargine,Hum.rec.anlog 6 units SQ DAILY 06/17/25 06/17/25 History [Lantus Solostar Pen] Insulin NPH Hum/Reg Insulin Hm 6 unit SQ HS PRN 06/17/25 06/17/25 History [NovoLIN 70-30 100 UNIT/ML VIAL] Nitroglycerin Sl Tabs [Nitrostat] 0.4 mg SL Q5M PRN 06/17/25 06/17/25 History hydrOXYzine HCL [Atarax] 25 mg PO BID 06/17/25 06/17/25 History Nystatin/Triamcin Cream [Mycolog 1 applic TOPICAL BID PRN 06/19/25 06/19/25 History Cream -- 100,000-0.1 Unit/gm-%] Allergies Allergy/AdvReac Type Severity Reaction Status Date / Time iodine Allergy Wheezing Verified 06/17/25 19:46 amoxicillin trihydrate AdvReac Nausea & Verified 06/17/25 19:46 [From Augmentin] Vomiting potassium clavulanate AdvReac Nausea & Verified 06/17/25 19:46 [From Augmentin] Vomiting vancomycin AdvReac Unknown Verified 06/17/25 19:46 Physical Exam Vitals: Vital Signs Temp Pulse Resp BP Pulse Ox 06/21/25 07:50 68 18 06/21/25 07:12 98.2 F 68 18 109/68 96 06/21/25 01:10 97.7 F 57 L 18 131/76 96 06/20/25 19:07 98.4 F 65 18 111/62 96 06/20/25 14:00 97.4 F L 55 L 18 112/55 98 Intake and Output 06/20/25 06/21/25 06/21/25 22:59 06:59 14:59 Output Total 800 Balance -800 Output: Urine 800 Other: Voiding Method Bedside Commode Bedside Commode External Catheter # Voids 750 Patient is awake, comfortable, no acute distress. She is hard of hearing Patient is also blind Examination of the heart S1 and S2 Examination of the lungs bilateral breath sounds are heard Abdomen is soft nontender Examination of lower extremities shows bilateral legs to be wrapped, significant edema noted LAST REPAIRER exam grossly intact Results - Lab Results Most recent lab results Calcium 8.2 mg/dL (8.7-10.3) L 06/20/25 03:04 Phosphorus 3.2 mg/dL (2.5-4.5) 06/17/25 19:46 Magnesium 2.1 mg/dL (1.6-2.3) 06/17/25 19:46 06/20/25 03:04 06/20/25 03:04 Assessment and Plan Assessment: 1. Acute kidney injury, rule out urine retention, possible ATN. UA is completely benign. No significant nephrotoxic agents noted. 2. Chronic kidney disease stage IIIb with baseline creatinine 1.5 to 1.6 mg/dL secondary to nephrosclerosis 3. Hypertension with CKD stage III 4. Anemia of chronic disease with significant iron deficiency noted 5. Generalized weakness Plan: Check bladder scan Continue with current dose of oral Lasix Continue off of IV fluids Add low-dose midodrine Repeat labs in a.m. Continue to avoid nephrotoxic agents IV iron Add aranesp. Thank you for the consultation. We will continue to follow the patient with you during her hospitalization.
--- NOTE | 2025-06-21 11:09 | P.PN ---
Subjective Progress Note Date: 06/21/25 SURGICAL PROGRESS NOTE CHIEF COMPLAINT: Neck and back pain HISTORY OF PRESENT ILLNESS: Surgical service following in regards to patient's anemia. No bloody bowel movements reported. Denies any abdominal pain. Hemoglobin stable at 9.0 PHYSICAL EXAM: VITAL SIGNS: Reviewed. GENERAL: Well-developed in no acute distress. ABDOMEN: Soft. Nondistended. Nontender. ASSESSMENT: 1. Anemia with no active bleeding PLAN: - Recommend EGD and colonoscopy outpatient - Patient can be discharged from surgical standpoint when medically cleared Physician Wet Finisher note has been reviewed by physician. Signing provider agrees with the documented findings, assessment, and plan of care. Objective - Vital Signs Vital signs: Vital Signs Temp 98.2 F 06/21/25 07:12 Pulse 68 06/21/25 07:50 Resp 18 06/21/25 07:50 BP 109/68 06/21/25 07:12 Pulse Ox 96 06/21/25 07:12 FiO2 Intake & Output 06/20/25 06/21/25 06/21/25 18:59 06:59 18:59 Output Total 800 Balance -800 Output: Urine 800 Other: Voiding Method Bedside Commode Bedside Commode Bedside Commode External Catheter External Catheter # Voids 750 - Labs CBC & Chem 7: 06/20/25 03:04 06/20/25 03:04 Labs: Abnormal Lab Results - Last 24 Hours (Table) 06/20/25 06/20/25 06/20/25 Range/Units 11:24 16:22 20:57 POC Glucose (mg/dL) 298 H 198 H 223 H (70-110) mg/dL 06/21/25 Range/Units 06:24 POC Glucose (mg/dL) 207 H (70-110) mg/dL
[2025-06-21 11:45] LABS: Glucose,Whole Blood 176 mg/dL (70-110)
[2025-06-21] MEDS: SODIUM FERRIC GLUCONAT-SUCROSE 125 MG in SODIUM CHLORIDE 0.9% 100 ML IVPB SCH (12:45)
[2025-06-21] MEDS: MIDODRINE 5 MG TAB PO SCH (12:45)
--- NOTE | 2025-06-21 13:14 | P.CNNES ---
History of Present Illness Consult date: 06/20/25 Requesting physician: Efe E Sheet Reason for Consult: fall recently , leg pain and weakness History of Present Illness: Patient is an 84-year-old female came to the hospital by ambulance on 06/17/2025 at 6:11 PM after suffering from a fall from the bed. Patient states that 4 to 5 days ago, she had a fall because she slid down. She needed help to be picked up. On the day of admission, she was in the bed sleeping, when she woke up as she felt like she was rolling out of the bed. She grabbed the side bar to support her and threw her left leg up to prevent the fall. In doing so, she feels that she messed up "everything". Her knee, elbow, neck is hurting everywhere. She is having some spasms. Therefore she was brought to the hospital. Patient states that she does not walk by herself. She has a walker with seat. She is legally blind, and also has slight hearing impairment. She walks with touching to the wall. She can walk short distances hanging onto the walker, but cannot walk "a whole lot". She forces herself to do so. Patient denies any stroke symptoms like slurred speech facial droop focal numbness or tingling or weakness. She is having some pain in her left leg and the foot. EMS flowsheet not available in the chart. Patient's blood test shows normal WBC hemoglobin 9.0, normal platelets. Electrolytes are normal, BUN 39, creatinine 2.0. Her renal function seems to be getting worse. X-ray of the hip and pelvis showed no acute osseous abnormality. CT of the head showed no acute intracranial process. CT of the neck showed no acute fracture or traumatic subluxation of the cervical spine. CT of the hip showed no acute fracture or dislocation. Patient has been seen by general surgery for anemia and recommending outpatient EGD and colonoscopy. Review of Systems All pertinent positive and negative review of systems mentioned in the HPI, otherwise unremarkable. Past Medical History Past Medical History: Atrial Fibrillation, Coronary Artery Disease (CAD), Chest Pain / Angina, Heart Failure, Diabetes Mellitus, Eye Disorder, GERD/Reflux, Hypertension, Neurologic Disorder, Osteoarthritis (OA), Syncope Additional Past Medical History / Comment(s): C/O "LT EYE ITCHING AND PUFFINESS"DIABETIC RETINOPATHY- HAD MULTIPLE LASER SX BUT ISLEGALLY BLIND, PASTCARDIAC ARREST-SON STATED PT HAD 2 HEART ATTACKS", NUMBNESS TO FINGERS , PAST FALL D/T SYNCOPE-BROKE LT ANKLE-WORE A BOOT. ANKLE SWELLING. "VERY SENSATIVE TO BP MEDS", SEVERAL ABD HERNIAS, MULTIPLE UTI'S,HERNIATED DISC, PAST BROKEN ANKLE(LT), NUMBNESS LOWER FINGERS. PT HAS AN IDENTICAL TWIN SISTER THAT ALSO IS BLIND D/T RETINOPATHY History of Any Multi-Drug Resistant Organisms: None Reported Past Surgical History: Appendectomy, Cholecystectomy, Heart Catheterization, Hernia Repair Additional Past Surgical History / Comment(s): MULTIPLE EYE SURGERIES, LOOP RECORDER , COLONOSCOPY Past Anesthesia/Blood Transfusion Reactions: No Reported Reaction Past Psychological History: Depression Past Alcohol Use History: None Reported Past Drug Use History: None Reported - Past Family History Mother Family Medical History: No Reported History Additional Family Medical History / Comment(s): FROM COMPLICATIONS OF A SURGURY WHEN PT WAS 4 YEARS OLD. Father Family Medical History: Dementia Additional Family Medical History / Comment(s): AT AGE 88 FROM [place] Brother(s) Family Medical History: Dementia Son(s) Family Medical History: Diabetes Mellitus Daughter(s) Family Medical History: Diabetes Mellitus Sister(s) Family Medical History: Diabetes Mellitus, Hypertension, Myocardial Infarction ([place]) Additional Family Medical History / Comment(s): Breast cancer. Her niece also had breast cancer. Another sister had lung cancer. Medications and Allergies Home Medications Medication Instructions Recorded Confirmed Type Metoprolol Tartrate [Lopressor] 12.5 mg PO BID 04/25/19 06/17/25 History Isosorbide Mononitrate ER [Imdur] 60 mg PO DAILY 12/21/19 06/17/25 History ALPRAZolam [Xanax] 0.25 mg PO DAILY PRN 06/17/25 06/17/25 History Aspirin [Adult Low Dose Aspirin EC] 81 mg PO DAILY 06/17/25 06/17/25 History Atorvastatin [Lipitor] 40 mg PO DAILY 06/17/25 06/19/25 History Clobetasol Propionate [Temovate 1 applic TOPICAL DAILY PRN 06/17/25 06/17/25 History 0.05% Oint] Furosemide [Lasix] 40 mg PO DAILY 06/17/25 06/17/25 History Insulin Glargine,Hum.rec.anlog 6 units SQ DAILY 06/17/25 06/17/25 History [Lantus Solostar Pen] Insulin NPH Hum/Reg Insulin Hm 6 unit SQ HS PRN 06/17/25 06/17/25 History [NovoLIN 70-30 100 UNIT/ML VIAL] Nitroglycerin Sl Tabs [Nitrostat] 0.4 mg SL Q5M PRN 06/17/25 06/17/25 History hydrOXYzine HCL [Atarax] 25 mg PO BID 06/17/25 06/17/25 History Nystatin/Triamcin Cream [Mycolog 1 applic TOPICAL BID PRN 06/19/25 06/19/25 History Cream -- 100,000-0.1 Unit/gm-%] Allergies Allergy/AdvReac Type Severity Reaction Status Date / Time iodine Allergy Wheezing Verified 06/17/25 19:46 amoxicillin trihydrate AdvReac Nausea & Verified 06/17/25 19:46 [From Augmentin] Vomiting potassium clavulanate AdvReac Nausea & Verified 06/17/25 19:46 [From Augmentin] Vomiting vancomycin AdvReac Unknown Verified 06/17/25 19:46 Physical Examination - Vital Signs Vital Signs: Vital Signs Temp Pulse Resp BP Pulse Ox 06/20/25 14:00 97.4 F L 55 L 18 112/55 98 06/20/25 07:56 97.6 F 67 17 105/61 99 06/20/25 00:49 98.1 F 76 17 135/71 99 Intake and Output 06/20/25 06/20/25 06/20/25 06:59 14:59 22:59 Output Total 600 Balance -600 Output: Urine 600 Other: Voiding Method Bedside Commode External Catheter # Voids 1 750 Patient is an elderly female, laying in the bed, no acute distress. Patient is alert awake oriented to time place and person. Speech and language functions are normal. Patient can name and repeat very well. No aphasia or dysarthria. Attention, concentration and fund of knowledge is adequate. On cranial nerve examination, patient is legally blind completely bilaterally. She has corneal haziness. Face is symmetric, tongue protrudes to the midline. Palatal elevation and sensation normal, hearing is moderately decreased and shoulder shrug normal, facial sensation normal. On muscle strength testing, there is no pronator drift and the strength is normal in arms distally and proximally. In the lower limbs, hip flexion is 4-3+/4-3+, ankle dorsiflexion 5/5. Deep tendon reflexes are symmetric 1 at the biceps, 1 brachioradialis, 0 in the lower limbs and plantars are flat. Sensory to touch is equal with no neglect on double simultaneous stimulation. Cerebellar function showed no ataxia for [id number] testing. No dysdiadochokinesia. Cannot check in the lower limbs. Tone and bulk of muscles normal. Gait deferred.. On general examination, there is no carotid bruit or murmur, S1-S2 audible. Chest is clear on consultation. Abdomen is soft nontender. No organomegaly, bowel sounds present. Peripheral pulses are present. Mild peripheral edema. Results - Laboratory Findings CBC and BMP: 06/20/25 03:04 06/20/25 03:04 Abnormal Lab Findings: Abnormal Labs 06/17/25 06/17/25 06/17/25 19:46 19:46 20:04 RBC 3.68 L Hgb 11.3 L Hct 32.9 L MCHC Lymphocytes # 0.81 L Sodium 136 L Anion Gap BUN 33 H Creatinine 1.49 H Est GFR (CKD-EPI) BUN/Creatinine Ratio Glucose 261 H POC Glucose (mg/dL) Calcium Iron % Saturation Total Protein Albumin Urine Glucose (UA) 2+ H 06/18/25 06/18/25 06/18/25 05:35 05:35 06:10 RBC 3.18 L Hgb 9.8 L D Hct 28.8 L MCHC Lymphocytes # 0.84 L Sodium 136 L Anion Gap BUN 33 H Creatinine 1.57 H Est GFR (CKD-EPI) BUN/Creatinine Ratio Glucose 299 H POC Glucose (mg/dL) 355 H Calcium Iron % Saturation Total Protein 5.6 L Albumin 3.2 L Urine Glucose (UA) 06/18/25 06/18/25 06/18/25 11:35 16:46 20:02 RBC Hgb Hct MCHC Lymphocytes # Sodium Anion Gap BUN Creatinine Est GFR (CKD-EPI) BUN/Creatinine Ratio Glucose POC Glucose (mg/dL) 270 H 421 H 131 H Calcium Iron % Saturation Total Protein Albumin Urine Glucose (UA) 06/18/25 06/18/2525 20:48 23:59 02:57 RBC Hgb Hct MCHC Lymphocytes # Sodium Anion Gap 14.20 H BUN 39.4 H Creatinine 1.8 H Est GFR (CKD-EPI) 27 L BUN/Creatinine Ratio 21.89 H Glucose 257 H POC Glucose (mg/dL) 113 H 222 H Calcium 8.5 L Iron 28 L % Saturation 9.66 L Total Protein Albumin Urine Glucose (UA) 06/19/25 06/19/25 06/19/25 02:57 06:09 11:17 RBC 3.31 L Hgb 9.7 L Hct 30.4 L MCHC 31.9 L Lymphocytes # 0.50 L Sodium Anion Gap BUN Creatinine Est GFR (CKD-EPI) BUN/Creatinine Ratio Glucose POC Glucose (mg/dL) 296 H 232 H Calcium Iron % Saturation Total Protein Albumin Urine Glucose (UA) 06/19/25 06/19/25 06/20/25 16:33 20:12 03:04 RBC 2.92 L Hgb 9.0 L Hct 26.8 L MCHC Lymphocytes # 0.79 L Sodium Anion Gap BUN Creatinine Est GFR (CKD-EPI) BUN/Creatinine Ratio Glucose POC Glucose (mg/dL) 342 H 272 H Calcium Iron % Saturation Total Protein Albumin Urine Glucose (UA) 06/20/25 06/20/25 06/20/25 03:04 06:12 11:24 RBC Hgb Hct MCHC Lymphocytes # Sodium Anion Gap BUN 39.3 H Creatinine 2.0 H Est GFR (CKD-EPI) 24 L BUN/Creatinine Ratio Glucose 190 H POC Glucose (mg/dL) 197 H 298 H Calcium 8.2 L Iron % Saturation Total Protein Albumin Urine Glucose (UA) 06/20/25 16:22 RBC Hgb Hct MCHC Lymphocytes # Sodium Anion Gap BUN Creatinine Est GFR (CKD-EPI) BUN/Creatinine Ratio Glucose POC Glucose (mg/dL) 198 H Calcium Iron % Saturation Total Protein Albumin Urine Glucose (UA) Assessment and Plan Assessment: * Status post accidental fall due to rolling out of the bed while asleep. * Myofascial pain involving the left leg, left elbow due to the above fall * Anemia * B12 deficiency * Legal blindness * Hard of hearing * Diabetes * Acute kidney injury Plan: * Patient's generalized weakness could be related to vitamin B12 deficiency. We will start vitamin B12 1000 mcg IM daily for 3 days, followed by oral replacement. * PT OT * Regarding myofascial pain, suggest nonsteroidal anti-inflammatory medication, but patient's renal functions are worsening, so contraindicated at this time. May try Tylenol or tramadol, or short course of opiates if needed. * No other neurological workup indicated. * Other medical management as per IM and other specialties on board. * Neurologically clear. Thank you for the consult.
[2025-06-21 15:18] LABS: African American GFR (CKD) 33 (>60 ml/min/1.73 sqM); Anion Gap 4 mmol/L; Blood Urea Nitrogen 38 mg/dL (7-17); Calcium 8.5 mg/dL (8.4-10.2); Carbon Dioxide 30 mmol/L (22-30); Chloride 104 mmol/L (98-107); Glucose 194 mg/dL (74-99); Non-African American GFR(CKD) 29 (>60 ml/min/1.73 sqM); Potassium 4.1 mmol/L (3.5-5.1); Sodium 138 mmol/L (137-145)
[2025-06-21 17:04] LABS: Glucose,Whole Blood 220 mg/dL (70-110)
[2025-06-21 20:29] LABS: Glucose,Whole Blood 241 mg/dL (70-110)
--- NOTE | 2025-06-21 22:30 | P.PN ---
Subjective 84-year-old female, history of hypertension, atrial fibrillation, CAD, CHF, diabetes mellitus, osteoarthritis, presents to the ER for headache and neck pain worsening neck pain so she twisted her neck in the wrong direction. Patient said pain ever since 3 to 4 days of neck pain. Patient is very vague and poor historian; not able to tell anything about the said complaint of pain - Reports he is not able to manage by herself at home Blood work completed in ED reveals WBC of 5.88, hemoglobin of 11.3 and platelet count of 179, sodium 136, potassium 4.4, BUN/creatinine of 33/1.49 and blood glucose of 261 UA is unremarkable X-ray of the hip is negative for any acute osseous abnormality -CT of the left hip does not reveal any acute fracture or dislocation CT of the head does not reveal any acute intracranial process CT of the cervical spine is negative for any acute fractures or traumatic subluxation of cervical spine 06/19 Patient is awake alert sitting in chair looks comfortable Presents because of neck pain but now pain significantly improved She still generally weak She is concerns also about her left leg wound not sure if she complaining from weakness or pain. both legs are covered with jojo bandage Patient denies any blood in the sputum or rectum or urine She is getting normal saline 75 mL/h but we can lowered to 50 Labs reviewed Patient did not sleep well last night till tooling specialist Patient states that at home she fell twice But patient cannot remember exact details. 06/20 Left hip pain to left leg still there However it is improving Patient currently able to move her leg which she could not do prior Creatinine went up to 2.0. IV fluids stopped. Nephrology team consulted Neurology also evaluated patient for her symptoms of weakness following and other neurological symptoms. General surgery recommend outpatient workup with EGD and colonoscopy as patient hemoglobin is stable 06/21 Patient still with left hip pain also radiating to the left knee However feels much better and patient is able to move her legs Patient was vomiting earlier. Patient states she has history of gastroparesis, she uses MiraLAX daily and sometimes milk of magnesia to help her bowel movement IV fluid was discontinued, kept on oral Lasix 40 mg daily. Creatinine improved down to 1.7. Discussed with social media strategist patient can go back once medically stable. Looks like patient medically improving and may be considered for discharge tomorrow can be considered for discharge tomorrow Objective - Vital Signs Vital signs: Vital Signs Temp 98.2 F 06/21/25 07:12 Pulse 68 06/21/25 07:50 Resp 18 06/21/25 07:50 BP 109/68 06/21/25 07:12 Pulse Ox 96 06/21/25 12:36 FiO2 Intake & Output 06/20/25 06/21/25 06/21/25 18:59 06:59 18:59 Output Total 800 Balance -800 Output: Urine 800 Other: Voiding Method Bedside Commode Bedside Commode Bedside Commode External Catheter External Catheter # Voids 750 - Exam -GENERAL: The patient is alert and oriented x3, not in any acute distress. Morbidly obese. Generally weak. HEENT: Pupils are round and equally reacting to light. EOMI. No scleral icterus. No conjunctival pallor. Normocephalic, atraumatic. No pharyngeal erythema. No thyromegaly. CARDIOVASCULAR: S1 and S2 present. No murmurs, rubs, or gallops. PULMONARY: Chest is clear to auscultation, no wheezing , no crackles. ABDOMEN: Soft, nontender, nondistended, normoactive bowel sounds. No palpable organomegaly. MUSCULOSKELETAL: No joint swelling or deformity. EXTREMITIES: No cyanosis, clubbing, or pedal edema. NEUROLOGICAL: Gross neurological examination did not reveal any focal deficits. SKIN: No rashes. no petechiae. - Labs CBC & Chem 7: 06/20/25 03:04 06/21/25 14:36 Labs: Abnormal Lab Results - Last 24 Hours (Table) 06/20/25 06/20/25 06/21/25 Range/Units 16:22 20:57 06:24 POC Glucose (mg/dL) 198 H 223 H 207 H (70-110) mg/dL 06/21/25 Range/Units 11:44 POC Glucose (mg/dL) 176 H (70-110) mg/dL Assessment and Plan Assessment: Fall at home few days and weeks earlier Left hip pain/neck pain Weakness/debility LUCIAN Possible fluid overload Hypertension; Hyperlipidemia Diabetes mellitus with long-term insulin use Acute on chronic CHF, systolic with ejection fraction 40 to 45% with acute exacerbation Coronary artery disease DVT prophylaxis; SCDs CODE STATUS; full code Plan: Continue monitoring hemoglobin Will do anemia workup and occult blood in stool General Surgery consult. There is no GI team in this facility during this week Acute kidney injury worsened therefore discontinued IV fluid and give small dose of IV Lasix 20 mg today and continue to the oral Lasix 4 mg daily. Monitor creatinine if continue to worsen tomorrow consider nephrology consult. Check a bladder scan Pain management Nephrology team consult Labs and medication were reviewed.. Continue same treatment. Continue with symptomatic treatment. Resume home medication. Monitor labs and vitals. DVT and GI prophylaxis. Further recommendations as per clinical course of the patient DVT prophylaxis: Subcutaneous heparin GI Prophylaxis: Pepcid PT/OT: Pending Prognosis is guarded
[2025-06-22 03:45] LABS: Glucose,Whole Blood 164 mg/dL (70-110)
[2025-06-22 06:32] LABS: Glucose,Whole Blood 231 mg/dL (70-110)
[2025-06-22 07:59] LABS: HCT 29.9 % (37.2-46.3); HGB 9.6 g/dL (12.0-15.0); MCH 29.4 pg (27.0-32.0); MCHC 32.1 g/dL (32.0-37.0); MCV 91.7 FL (80.0-97.0); NRBC Per 100 WBC 0 X 10*3/uL (0.00-0.01); Platelet Count 182 X 10*3/uL (140-440); RBC 3.26 X 10*6/uL (4.10-5.20); RDW 13.1 % (11.5-14.5); WBC 6.51 X 10*3/uL (4.50-10.00)
[2025-06-22 08:09] LABS: Anion Gap 11.80 mmol/L (4.00-12.00); BUN/Creat Ratio 19.22 Ratio (12.00-20.00); Blood Urea Nitrogen 34.6 mg/dL (9.0-27.0); Calcium 8.5 mg/dL (8.7-10.3); Carbon Dioxide 28.2 mmol/L (21.6-31.8); Chloride 100 mmol/L (96-109); Glucose 209 mg/dL (70-110); Potassium 4.2 mmol/L (3.5-5.5); Sodium 140 mmol/L (135-145)
[2025-06-22 08:10] VITALS: PULSE 70
--- NOTE | 2025-06-22 10:54 | P.PN ---
Subjective Progress Note Date: 06/22/25 SURGICAL PROGRESS NOTE CHIEF COMPLAINT: Neck and back pain HISTORY OF PRESENT ILLNESS: Surgical service following in regards to patient's anemia. No bloody bowel movements reported per nursing staff. Denies any abdominal pain. Patient sitting up at bedside chair. Hemoglobin stable at 9.6 possible discharge to [facility] today. PHYSICAL EXAM: VITAL SIGNS: Reviewed. GENERAL: Well-developed in no acute distress. ABDOMEN: Soft. Nondistended. Nontender. ASSESSMENT: 1. Anemia with no active bleeding PLAN: - Recommend EGD and colonoscopy outpatient - Patient can be discharged from surgical standpoint when medically cleared Physician Income Tax Investigator note has been reviewed by physician. Signing provider agrees with the documented findings, assessment, and plan of care. Objective - Vital Signs Vital signs: Vital Signs Temp 98 F 06/22/25 06:55 Pulse 70 06/22/25 07:50 Resp 17 06/22/25 07:50 BP 126/52 06/22/25 06:55 Pulse Ox 97 06/22/25 06:55 FiO2 Intake & Output 06/21/25 06/22/25 06/22/25 18:59 06:59 18:59 Output Total 1100 600 600 Balance -1100 -600 -600 Output: Urine 1100 600 600 Other: Voiding Method Bedside Commode Bedside Commode Bedside Commode External Catheter External Catheter # Voids 3 3 - Labs CBC & Chem 7: 06/22/25 05:01 06/22/25 05:01 Labs: Abnormal Lab Results - Last 24 Hours (Table) 06/21/25 06/21/25 06/21/25 Range/Units 11:44 14:36 17:02 RBC (4.10-5.20) X 10*6/uL Hgb (12.0-15.0) g/dL Hct (37.2-46.3) % BUN 38 H (7-17) mg/dL Creatinine 1.61 H (0.52-1.04) mg/dL Est GFR (CKD-EPI) (>=60) Glucose 194 H (74-99) mg/dL POC Glucose (mg/dL) 176 H 220 H (70-110) mg/dL Calcium (8.7-10.3) mg/dL 06/21/25 06/22/25 06/22/25 Range/Units 20:28 03:43 05:01 RBC 3.26 L (4.10-5.20) X 10*6/uL Hgb 9.6 L (12.0-15.0) g/dL Hct 29.9 L (37.2-46.3) % BUN (7-17) mg/dL Creatinine (0.52-1.04) mg/dL Est GFR (CKD-EPI) (>=60) Glucose (74-99) mg/dL POC Glucose (mg/dL) 241 H 164 H (70-110) mg/dL Calcium (8.7-10.3) mg/dL 06/22/25 06/22/25 Range/Units 05:01 06:30 RBC (4.10-5.20) X 10*6/uL Hgb (12.0-15.0) g/dL Hct (37.2-46.3) % BUN 34.6 H (7-17) mg/dL Creatinine 1.8 H (0.52-1.04) mg/dL Est GFR (CKD-EPI) 27 L (>=60) Glucose 209 H (74-99) mg/dL POC Glucose (mg/dL) 231 H (70-110) mg/dL Calcium 8.5 L (8.7-10.3) mg/dL
--- NOTE | 2025-06-22 11:29 | P.PN ---
Subjective Patient is seen for follow-up for acute kidney injury and chronic kidney disease. Currently maintained on oral Lasix for lower extremity edema which seems to have improved. Serum creatinine had improved to 1.6 yesterday and is 1.8 today. Started on midodrine yesterday for borderline low blood pressures No hypotension noted today. Urine output at 1.7 L for 24 hours which has improved. No complaints of shortness of breath nausea or vomiting. Complaining of pain in the right arm at the IV site which may have infiltrated. Objective - Vital Signs Vital signs: Vital Signs Temp 98 F 06/22/25 06:55 Pulse 70 06/22/25 07:50 Resp 17 06/22/25 07:50 BP 126/52 06/22/25 06:55 Pulse Ox 97 06/22/25 06:55 FiO2 Intake & Output 06/21/25 06/22/25 06/22/25 18:59 06:59 18:59 Output Total 1100 600 600 Balance -1100 -600 -600 Output: Urine 1100 600 600 Other: Voiding Method Bedside Commode Bedside Commode Bedside Commode External Catheter External Catheter # Voids 3 3 - Exam Patient is awake, comfortable, no acute distress. She is hard of hearing Patient is also blind Examination of the heart S1 and S2 Examination of the lungs bilateral breath sounds are heard Abdomen is soft nontender Examination of lower extremities shows bilateral legs to be wrapped, edema has improved. PROOF OPERATOR exam grossly intact - Labs CBC & Chem 7: 06/22/25 05:01 06/22/25 05:01 Labs: Abnormal Lab Results - Last 24 Hours (Table) 06/21/25 06/21/25 06/21/25 Range/Units 11:44 14:36 17:02 RBC (4.10-5.20) X 10*6/uL Hgb (12.0-15.0) g/dL Hct (37.2-46.3) % BUN 38 H (7-17) mg/dL Creatinine 1.61 H (0.52-1.04) mg/dL Est GFR (CKD-EPI) (>=60) Glucose 194 H (74-99) mg/dL POC Glucose (mg/dL) 176 H 220 H (70-110) mg/dL Calcium (8.7-10.3) mg/dL 06/21/25 06/22/25 06/22/25 Range/Units 20:28 03:43 05:01 RBC 3.26 L (4.10-5.20) X 10*6/uL Hgb 9.6 L (12.0-15.0) g/dL Hct 29.9 L (37.2-46.3) % BUN (7-17) mg/dL Creatinine (0.52-1.04) mg/dL Est GFR (CKD-EPI) (>=60) Glucose (74-99) mg/dL POC Glucose (mg/dL) 241 H 164 H (70-110) mg/dL Calcium (8.7-10.3) mg/dL 06/22/25 06/22/25 Range/Units 05:01 06:30 RBC (4.10-5.20) X 10*6/uL Hgb (12.0-15.0) g/dL Hct (37.2-46.3) % BUN 34.6 H (7-17) mg/dL Creatinine 1.8 H (0.52-1.04) mg/dL Est GFR (CKD-EPI) 27 L (>=60) Glucose 209 H (74-99) mg/dL POC Glucose (mg/dL) 231 H (70-110) mg/dL Calcium 8.5 L (8.7-10.3) mg/dL Assessment and Plan Assessment: 1. Acute kidney injury, most likely ATN. UA is completely benign. No significant nephrotoxic agents noted. Maintained on midodrine for borderline low blood pressures along with low-dose loop diuretic 2. Chronic kidney disease stage IIIb with baseline creatinine 1.5 to 1.6 mg/dL secondary to nephrosclerosis 3. Hypertension with CKD stage III 4. Anemia of chronic disease with significant iron deficiency noted 5. Generalized weakness 6. Bilateral lower extremity edema/volume overload, improved Plan: Continue with midodrine Hold Lasix Repeat labs in a.m. Continue to avoid nephrotoxic agents Continue IV iron and Aranesp
[2025-06-22 11:49] LABS: Glucose,Whole Blood 246 mg/dL (70-110)
--- NOTE | 2025-06-22 13:58 | P.DS ---
Providers Date of admission: 06/17/25 22:26 Expected date of discharge: 06/22/25 Attending physician: Aaron Orr Consults: 06/19/25 12:32 Consult Physician Routine Consulting Provider: Dilcia Ma Consult Reason/Comments: fall recently , leg pain and weakness Do you want consulting provider notified?: Yes 06/20/25 11:28 Consult Physician Routine Consulting Provider: Ada Love Consult Reason/Comments: lucian Do you want consulting provider notified?: Yes Primary care physician: Ruthie Jacob Hospital Course: Final diagnosis Fall at home with generalized weakness and gait dysfunction Left hip pain/neck pain Age-related debility LUCIAN Possible fluid overload Hypertension, currently hypotensive Hyperlipidemia Diabetes mellitus with long-term insulin use, uncontrolled with hyperglycemia Acute on chronic CHF, systolic with ejection fraction 40 to 45% with acute exacerbation Coronary artery disease Obesity with a BMI of 37.4 DVT prophylaxis; SCDs CODE STATUS; full code Discharge disposition Patient is being discharged in a stable condition with guarded prognosis to [facility]. Patient will follow-up with in the outpatient setting upon discharge. Patient is to continue with current medications and close outpatient follow-up with nephrology as scheduled. Total time taken is greater than 35 minutes. Hospital course This is an 84-year-old female with significant history of hypertension, atrial fibrillation, coronary artery disease, congestive heart failure, diabetes, osteoarthritis presented to the emergency room with a headache and neck pain that was worsening and also having gait dysfunction with generalized weakness and falls most recently at home. Patient being followed by multiple consultations including nephrology and general surgery as patient does have history of anemia, likely chronic anemia due to chronic kidney disease and iron deficiency. General surgery did evaluate recommending outpatient follow-up with EGD and colonoscopy once hemoglobin is stable. Hemoglobin is improved at 9 with no active bleeding noted and is receiving IV iron. Patient will continue on oral iron supplements on discharge per nephrology recommendations along with 40 mg of Lasix daily and continued midodrine for hypotension. JAMIE and ARB medications being held currently and patient has been continued on midodrine. Per nephrology patient to receive repeat labs in the next 2 to 3 days to monitor CBC, CMP, magnesium in the outpatient setting and recommending outpatient follow-up in 1 to 2 weeks. Patient has been instructed to elevate bilateral lower extremities, monitor fluid intake, and use Jamie wraps to aid in swelling of the lower extremities from the toes up to the knees. Patient evaluated by physical therapy with significant weakness recommending rehab and initially patient wanted to go home after discussion with family patient is agreeable to go to rehab for continued strength and mobility. Patient has received insurance authorization and has been accepted at [facility]. Patient will be discharged today and recommending close outpatient follow-up. Patient is a diabetic and recommend monitoring blood sugars AC and at bedtime and using sliding scale along with long-acting. Please refer to other consultation notes for further HPI. Currently no reports of chest pain, shortness of breath, or palpitations. Patient is afebrile. No reports of nausea or vomiting and patient is tolerating diet. Patient will be going to [facility] today. Guarded prognosis and high risk for readmission given significant comorbidities Physical exam: Gen: This is a 84-year-old female who is awake, alert and oriented x 2, baseline, well-developed, elderly appearing, chronically ill-appearing, obese HEENT: Head is atraumatic, normocephalic. Pupils equal, round. Sclerae is anicteric. NECK: Supple. No JVD. No lymphadenopathy. No thyromegaly. LUNGS: Diminished breath sounds bilaterally otherwise clear to auscultation. No wheezes or rhonchi. No intercostal retractions. HEART: S1, S2 are muffled ABDOMEN: Soft. Obese bowel sounds are present. No masses. No tenderness. EXTREMITIES: No pedal edema. No calf tenderness. Bilateral lower extremity swelling, improving NEUROLOGICAL: Patient is awake, alert and oriented x to diffusely weak. Cranial nerves 2 through 12 are grossly intact. Diffusely weak Please refer to medication reconciliation sheet for a list of medications. The impression and plan of care has been dictated by Terra Hand, Nurse Practitioner as directed. Dr. Kirby MD I have performed a history and examination and MDM of this patient, discussed the same with the dictator, and agree with the dictator's assessment and plan as written ,documented as a scribe. Based on total visit time, I have performed more than 50% of the visit. Patient Condition at Discharge: Fair Plan - Discharge Summary New Discharge Prescriptions: New Heparin Sodium,Porcine (1 ml) [Heparin Sodium] 5,000 unit SQ Q12HR each Insulin Glargine (Lantus) [Lantus Vial] 15 unit SQ DAILY@0700 each polyethylene glycoL 3350 [Miralax] 17 gm PO DAILY packet Famotidine [Pepcid] 20 mg PO DAILY tab Acetaminophen-Codeine 300-30mg [Tylenol w/codeine #3] 1 each PO Q6HR PRN #4 tab PRN Reason: Pain INSULIN LISPRO (HumaLOG) [HumaLOG] 0 unit SQ ACHS each Ferrous Sulfate [Iron] 325 mg PO DAILY #30 tablet Midodrine [ProAmatine] 5 mg PO AC-BID tab Cyanocobalamin (Vitamin B-12) [Vitamin B-12] 1,000 mcg PO DAILY 30 Days #30 tablet Continue Metoprolol Tartrate [Lopressor] 12.5 mg PO BID Isosorbide Mononitrate ER [Imdur] 60 mg PO DAILY hydrOXYzine HCL [Atarax] 25 mg PO BID Aspirin [Adult Low Dose Aspirin EC] 81 mg PO DAILY Nystatin/Triamcin Cream [Mycolog Cream -- 100,000-0.1 Unit/gm-%] 1 applic TOPICAL BID PRN PRN Reason: Rash Nitroglycerin Sl Tabs [Nitrostat] 0.4 mg SL Q5M PRN PRN Reason: Chest Pain Clobetasol Propionate [Temovate 0.05% Oint] 1 applic TOPICAL DAILY PRN PRN Reason: Rash ALPRAZolam [Xanax] 0.25 mg PO DAILY PRN PRN Reason: Anxiety Furosemide [Lasix] 40 mg PO DAILY Atorvastatin [Lipitor] 40 mg PO DAILY Discontinued Insulin Glargine,Hum.rec.anlog [Lantus Solostar Pen] 6 units SQ DAILY Insulin NPH Hum/Reg Insulin Hm [NovoLIN 70-30 100 UNIT/ML VIAL] 6 unit SQ HS PRN PRN Reason: BS over 200 Discharge Medication List Metoprolol Tartrate [Lopressor] 12.5 mg PO BID 04/25/19 [History] Isosorbide Mononitrate ER [Imdur] 60 mg PO DAILY 12/21/19 [History] ALPRAZolam [Xanax] 0.25 mg PO DAILY PRN 06/17/25 [History] Aspirin [Adult Low Dose Aspirin EC] 81 mg PO DAILY 06/17/25 [History] Atorvastatin [Lipitor] 40 mg PO DAILY 06/17/25 [History] Clobetasol Propionate [Temovate 0.05% Oint] 1 applic TOPICAL DAILY PRN 06/17/25 [History] Furosemide [Lasix] 40 mg PO DAILY 06/17/25 [History] Nitroglycerin Sl Tabs [Nitrostat] 0.4 mg SL Q5M PRN 06/17/25 [History] hydrOXYzine HCL [Atarax] 25 mg PO BID 06/17/25 [History] Nystatin/Triamcin Cream [Mycolog Cream -- 100,000-0.1 Unit/gm-%] 1 applic TOPICAL BID PRN 06/19/25 [History] Acetaminophen-Codeine 300-30mg [Tylenol w/codeine #3] 1 each PO Q6HR PRN #4 tab 06/22/25 [Rx] Cyanocobalamin (Vitamin B-12) [Vitamin B-12] 1,000 mcg PO DAILY 30 Days #30 tablet 06/22/25 [Rx] Famotidine [Pepcid] 20 mg PO DAILY tab 06/22/25 [Rx] Ferrous Sulfate [Iron] 325 mg PO DAILY #30 tablet 06/22/25 [Rx] Heparin Sodium,Porcine (1 ml) [Heparin Sodium] 5,000 unit SQ Q12HR each 06/22/25 [Rx] INSULIN LISPRO (HumaLOG) [HumaLOG] 0 unit SQ ACHS each 06/22/25 [Rx] Insulin Glargine (Lantus) [Lantus Vial] 15 unit SQ DAILY@0700 each 06/22/25 [Rx] Midodrine [ProAmatine] 5 mg PO AC-BID tab 06/22/25 [Rx] polyethylene glycoL 3350 [Miralax] 17 gm PO DAILY packet 06/22/25 [Rx] [facility]Ref[facility] - As Needed Ruthie Jacob MD [Primary Care Provider] - 1-2 days Ada Love MD [STAFF PHYSICIAN] - 1 Week Ambulatory/Diagnostic Orders: Complete Blood Count w/diff [LAB.AMB] Time Frame: 2 Days, Location: None Selected Patient Instructions/Handouts: Neck Pain (ED) Discharge Disposition: TRANSFER TO SNF/F
[2025-06-22 14:35] VITALS: BP 99/55; RESP 18; TEMP 97.4
== END 2025-06-22 17:04 | DRG 682 ==
LOC: EC 18:11 → 4SSUR 22:25 → OBSVTOIN 22:26 → 4SSUR 23:29
PROVIDERS: ADMIT Hospitalist; ATTEND Hospitalist
DX: N17.0 Acute kidney failure with tubular necrosis (principal); I50.23 Acute on chronic systolic (congestive) heart failure; I13.0 Hypertensive heart and chronic kidney disease with heart failure and stage 1 through stage 4 chronic kidney disease, or unspecified chronic kidney disease; E11.22 Type 2 diabetes mellitus with diabetic chronic kidney disease; N18.32 Chronic kidney disease, stage 3b; F32.A Depression, unspecified; Z68.37 Body mass index [BMI] 37.0-37.9, adult; D63.1 Anemia in chronic kidney disease; E11.319 Type 2 diabetes mellitus with unspecified diabetic retinopathy without macular edema; I48.91 Unspecified atrial fibrillation; Z79.4 Long term (current) use of insulin; E11.43 Type 2 diabetes mellitus with diabetic autonomic (poly)neuropathy; E11.65 Type 2 diabetes mellitus with hyperglycemia; E61.1 Iron deficiency; H54.8 Legal blindness, as defined in USA; I25.2 Old myocardial infarction; I25.10 Atherosclerotic heart disease of native coronary artery without angina pectoris; Z79.82 Long term (current) use of aspirin; Z79.899 Other long term (current) drug therapy; R54 Age-related physical debility; E66.9 Obesity, unspecified; I95.9 Hypotension, unspecified; M54.2 Cervicalgia; M25.552 Pain in left hip; R26.9 Unspecified abnormalities of gait and mobility; W19.XXXA Unspecified fall, initial encounter; Y92.009 Unspecified place in unspecified non-institutional (private) residence as the place of occurrence of the external cause; E53.8 Deficiency of other specified B group vitamins; M19.90 Unspecified osteoarthritis, unspecified site; E78.5 Hyperlipidemia, unspecified; F41.9 Anxiety disorder, unspecified; K31.84 Gastroparesis; Z82.49 Family history of ischemic heart disease and other diseases of the circulatory system; Z87.440 Personal history of urinary (tract) infections; Z88.1 Allergy status to other antibiotic agents; Z91.041 Radiographic dye allergy status; Z95.818 Presence of other cardiac implants and grafts; Z90.49 Acquired absence of other specified parts of digestive tract; Z87.19 Personal history of other diseases of the digestive system
CPT/HCPCS: 36415; 70450; 72125; 73502; 80048; 80053; 81003; 82607; 82728; 82746; 83540; 83550; 83605; 83735; 84100; 84145; 84443; 84484; 85025; 85027; 85610; 85730; 93005; 94760; 96361; 96372; 96374; 99285